=== PATIENT | female | born 1940 ===

== ENCOUNTER 2022-06-18 06:59 | Inpatient (IN) ==
[2022-06-18] MEDS ORDERED: BUMETANIDE 1 MG/4 ML VIAL IV ONE (07:16)
--- NOTE | 2022-06-18 07:21 | Emergency Department Note ---
HPI General Chief complaint: Shortness of Breath/Dyspnea Stated complaint: shortness of breath Time Seen by Provider: 06/18/22 07:06 Source: EMS Mode of arrival: EMS Limitations: language barrier History of Present Illness HPI Narrative: Narrative: This 82-year-old female [facility] with a complaint of shortness of breath. She states it has been occurring over several days, and is unassociated with any chest pain or palpitations productive cough, fever sweats or chills. The patient has both COPD and CHF as well as CKD4 and DM2, an ostomy placed secondary to multiple episodes of diverticulitis, and a bowel obstruction, that has led to chronic dehydration, and a chronic leg ulcer present x ~1 month. She states she's been getting treated by the wound clinic (though isn't taking any oral antibiotics), and has quit smoking a month ago. Pt is completely sedentary at the care facility. She states she still makes some urine, and denies any nausea or vomitting. Related Data Home Medications Medication Instructions Recorded Confirmed acetaminophen 325 mg tablet 325 mg PO ONCE PRN pain/fever 02/27/22 06/18/22 (Tylenol) albuterol sulfate 90 mcg/actuation 1 inh inhalation ONCE 02/27/22 06/18/22 aerosol inhaler apixaban 5 mg tablet (Eliquis) 2.5 mg PO BID 02/27/22 06/18/22 cholecalciferol (vitamin D3) 50 50 mcg PO QDAY 02/27/22 06/18/22 mcg (2,000 unit) capsule cholestyramine (with sugar) 4 gram 2 ea PO BID 02/27/22 06/18/22 oral powder cyanocobalamin (vitamin B-12) 1,000 mcg PO QMONTH 02/27/22 06/18/22 1,000 mcg capsule levothyroxine 100 mcg capsule 200 mcg PO QDAY 02/27/22 06/18/22 loperamide 2 mg tablet 2 mg PO Q6H PRN Diarrhea 02/27/22 06/18/22 bisacodyl 10 mg rectal suppository 10 mg WA ONCE 06/18/22 06/18/22 (Dulcolax (bisacodyl)) bisacodyl 5 mg tablet 10 mg PO DAILY 06/18/22 06/18/22 ferrous sulfate 325 mg (65 mg See Rx Instructions .Route .COMPLEX 06/18/22 06/18/22 iron) tablet fiber 2 tab PO DAILY 06/18/22 06/18/22 fluticasone fur. 100 mcg-umeclid 1 inh inhalation QDAY 06/18/22 06/18/22 62.5 mcg-vilant 25 mcg inhalat.powder furosemide 40 mg tablet 40 mg PO QAM PRN lower extremity 06/18/22 06/18/22 edema lidocaine 4 % topical patch 1 patch topical QDAY PRN Pain 06/18/22 06/18/22 nicotine 14 mg/24 hr daily 1 patch transdermal Q24H 06/18/22 06/18/22 transdermal patch sodium bicarbonate 650 mg tablet 650 mg PO QID 06/18/22 06/18/22 Previous Rx's Medication Instructions Recorded oxycodone 5 mg tablet 5 mg PO Q6H PRN Pain #10 tabs 06/24/22 piperacillin-tazobactam 2.25 2.25 g (56.25 mL) IV Q8H #600 mL 06/24/22 gram/50 mL in dextrose(iso) IV piggyback (Zosyn) Allergies Allergy/AdvReac Type Severity Reaction Status Date / Time fluconazole Allergy Severe anaphylaxia Verified 06/18/22 14:01 codeine Allergy Mild Diarrhea, Verified 06/18/22 14:01 Nausea, vomiting methocarbamol Allergy Mild pruritis Verified 06/18/22 14:01 ciprofloxacin Allergy Unknown Unknown Verified 06/18/22 14:01 egg Allergy Unknown Unknown Verified 05/30/22 14:40 levofloxacin Allergy Unknown Unknown Verified 06/18/22 14:01 shellfish derived Allergy Unknown Unknown Verified 06/18/22 14:01 montelukast AdvReac Intermediate headache/Chest Verified 06/18/22 14:01 pain clindamycin AdvReac Mild intolerance Verified 06/18/22 14:01 metoclopramide AdvReac Mild Diarrhea Verified 06/18/22 14:01 antiseptic solution Allergy Mild hives, Uncoded 06/18/22 14:01 Urticaria, rash salmon Allergy Unknown Unknown Uncoded 06/18/22 14:01 Review of Systems ROS ROS Narrative: Narrative: All systems ED: reviewed and negative except as stated. 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) Enterostomy complication (Chronic) Essential hypertension (Chronic) GERD without esophagitis (Chronic) Hyperlipidemia (Chronic) Hypokalemia (Chronic) Hypothyroidism (Chronic) Ileostomy status (Chronic) Malignant neoplasm of breast (Chronic) Malignant carcinoid tumor of rectum (Chronic) Nicotine dependence (Chronic) Obesity (Chronic) Localized skin mass, lump, or swelling (Chronic) Skin cancer of face (Chronic) Sleep apnea (Chronic) Injury of knee (Chronic) Swelling (Chronic) Allergy or toxic reaction to venom (Chronic) DM type 2 (diabetes mellitus, type 2) (Chronic) Asthma (Chronic) UTI (urinary tract infection) (Chronic) Vitamin B12 deficiency (Chronic) Dyspnea (Chronic) Chronic kidney disease, stage 4 (severe) (Chronic) Acute hyperkalemia (Acute) Pulmonary edema (Acute) Acute UTI (Acute) Sepsis (Acute) Acute renal failure superimposed on stage 4 chronic kidney disease (Acute) Sepsis (Acute) Chronic kidney disease (Acute) ELLA (acute kidney injury) (Acute) Wound infection (Acute) Metabolic acidosis (Acute) Metabolic acidosis with respiratory alkalosis (Acute) [id number] kidney injury (Acute) DVT (deep venous thrombosis) (Acute) Hyponatremia (Acute) Hyperkalemia (Acute) Hypomagnesemia (Acute) Dermatitis associated with moisture (Acute) Acidosis, metabolic, with respiratory acidosis (Acute) Medical History (Updated 06/26/22 @ 10:23 by Robert Bolivar MD) Allergy or toxic reaction to venom ot venom of spider Anxiety Arthralgia of hand Asthma Cellulitis Chest pain Chronic kidney disease, stage 4 (severe) CKD (chronic kidney disease) COPD (chronic obstructive pulmonary disease) Dermatitis associated with moisture DM type 2 (diabetes mellitus, type 2) Dyspnea Edema Embolism of artery of lower extremity Deep Veins Enterostomy complication Essential hypertension GERD without esophagitis Hyperlipidemia Hypokalemia Hypothyroidism Injury of knee Localized skin mass, lump, or swelling Malignant carcinoid tumor of rectum Malignant neoplasm of breast Nicotine dependence Obesity Other low back pain W/right hip complaints Pain in right hip Skin cancer of face Sleep apnea Swelling head and neck lump left side UTI (urinary tract infection) Vitamin B12 deficiency Surgical History History of cholecystectomy History of colon resection (11/10/19) with diverting ostomy from complicated diverticulitis History of creation of ostomy (~01/2022) for hernia and bowel obstruction History of evacuation of hematoma (02/12/22) RLE History of hysterectomy History of knee joint replacement Left History of lumpectomy of left breast (~2010) Ileostomy status Family History Mother Heart failure Cerebral hemorrhage Father Heart failure Diabetes Social History Smoking Status: Former smoker Alcohol Intake Frequency: does not drink Substance Use: does not use Exam Narrative Narrative: Narrative: General: Alert and oriented x3 in no acute distress. No dyspneic behavior (tenting, struggling to breath). Morbidly obese. Skin: Diffuse swelling (+4/4), in lower extremities bilaterally with a large ulcer to the muscule layer with thick green exudate) on the right. Pulmonary: Rales in both lower lobes. No wheezes or rhonchi. Good air exchange. CV: Regular rate and rhythm without murmurs clicks rubs or gallops. General Limitations: language barrier Course Vital Signs Vital signs: Vital Signs Temperature 98.7 F 06/18/22 06:59 Pulse Rate 98 H 06/18/22 06:59 Blood Pressure 125/52 06/18/22 06:59 Pulse Oximetry (%) 98 06/18/22 06:59 Oxygen Delivery Method Room Air 06/18/22 06:59 Temperature 98.1 F 06/24/22 15:06 Pulse Rate 80 06/24/22 15:06 Respiratory Rate 18 06/24/22 15:06 Blood Pressure 137/51 06/24/22 15:06 Pulse Oximetry (%) 97 06/24/22 15:06 Oxygen Delivery Method Room Air 06/24/22 15:06 MDM MDM Narrative Medical decision making narrative: Narrative: Patient's EKG shows a normal sinus rhythm with suggestion of minimal ST elevat ion in the lateral leads of 1 and aVL. QTc 456. I-STAT troponin=0. Patient was initially treated with Bumex 0.5 mg IV; chest x-ray as read by the radiologist shows: 1. Pulmonary parenchymal densities are consistent with atelectasis or scarring 2. No evidence for pneumonia. No acute abnormality or significant change. WBC 29.2, pos left shift Na 126, K 5.7, Bun/Cre 42/3.8, d-dimer .94 (wi age related normals), BNP 951, Troponin <.02. Pt's SaO2 on 2 l = 100%, with no fever or tachypnea suggest that her complaint of shortness of breath may be a pulmonary compensation for a metabolic acidosis. CT scan was obtained of the lungs and abdomen and showedScattered small noncalcified pulmonary parenchymal nodules. These are unchanged since 03/28/2022 2. Small focal groundglass infiltrate in the right upper lobe. This is unchanged. Follow-up recommended as above 3. Mild left lower lobe bronchiectasis. Mild bibasilar reticular abnormality. There is no honeycombing 4. Atherosclerotic disease with coronary artery calcification. There is calcification of the abdominal aorta. No abdominal aortic aneurysm 5. Previous colectomy. 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 There is a right para midline ostomy 6. No intra-abdominal abscess. Etiology of patient's leukocytosis is not explained 7. Findings consistent with previous cholecystectomy and hysterectomy Patient's ostomy device has in the past created dehydration and acidotic conditions. Patient's chronic kidney disease seems to be worse suggesting ELLA on top of CKD. Source of infection could be her urine (we have not been able to get any as a specimen, and her right leg ulcer. Patient was placed on azithromycin and ceftriaxone initially on 6 blood cultures were obtained patient was admitted after discussing the case with Dr. Bower Sepsis Sepsis Identified: No Lab Data 06/23/22 05:09 06/23/22 05:09 Labs: Lab Results 06/18/22 06/18/22 06/18/22 Range/Units 07:30 07:32 07:32 WBC 29.2 H (4.5-11.0) K/mcL RBC 3.77 (3.59-5.38) M/mcL Hgb 10.4 L (11.2-15.7) g/dL Hct 32.4 L (34.1-44.9) % POC Hct (36-48) MCV 85.9 (80.0-100.0) fL MCH 27.6 (26.0-34.0) pg MCHC 32.1 (31.0-36.0) g/dL RDW 14.8 H (11.5-14.5) % Plt Count 330 (140-440) K/mcL MPV 8.9 (8.8-12.5) fL Immature Gran % (Auto) 2.6 H (0.0-0.5) % Neut % (Auto) 89.5 H (38.0-78.0) % Lymph % (Auto) 4.1 L (15.5-49.0) % Barren % (Auto) 3.4 (1.0-12.0) % Eos % (Auto) 0.2 (0.0-7.0) % Baso % (Auto) 0.2 (0.0-2.0) % Lymph # (Auto) 1.21 L (1.50-4.80) K/mcL Barren # (Auto) 1.00 H (0.10-0.90) K/mcL Eos # (Auto) 0.07 (0.00-0.70) K/mcL Baso # (Auto) 0.06 (0.00-0.30) K/mcL Immature Gran # 0.76 H (0.00-0.05) K/mcl Absolute Neutrophils 26.07 H (1.80-8.00) K/mcL D-Dimer 0.94 H (0.27-0.50) ug/mL ABG Methemoglobin (0.4-1.5) % VBG pH (7.32-7.42) U VBG pCO2 (41.0-51.0) mmHg VBG pO2 (25.0-40.0) mmHg VBG HCO3 (24.0-28.0) mmol/L VBG Total CO2 (25.0-29.0) mmol/L VBG O2 Saturation (40.0-70.0) % VBG Base Excess (-2-3) VBG Lactic Acid (0.5-2.0) mmol/L Carboxyhemoglobin (0.0-1.5) % THgb Total Hemoglobin (12.0-15.0) gm/Dl POC Sodium (133-145) Sodium (133-145) mmol/L POC Potassium (3.3-5.1) Potassium (3.3-5.1) mmol/L POC Chloride (96-108) Chloride (96-108) mmol/L Carbon Dioxide (22-30) mmol/L POC Total CO2 (22-30) Anion Gap (8.0-16.0) POC BUN (6-20) BUN (8-23) mg/dL Creatinine (0.6-1.1) mg/dL POC Creatinine (0.6-1.2) GFR Calculation Glucose (70-105) mg/dL POC Glucose (70-105) Osmolality (280-300) mOSM/kg Calcium (8.6-10.4) mg/dL POC WB Ioniz Calcium (1.16-1.32) Total Bilirubin (0.1-1.0) mg/dL AST (<32) U/L ALT (<40) U/L Alkaline Phosphatase (39-117) U/L NT-Pro-B Natriuret Pep (<450.0) pg/mL Total Protein (5.9-8.4) gm/dL Albumin (3.2-5.2) gm/dL Globulin (2.2-3.7) gm/dL Albumin/Globulin Ratio (1.0-2.3) Procalcitonin (<0.10) ng/mL POC Troponin I < 0.02 (0.00-0.08) 06/18/22 06/18/22 06/18/22 Range/Units 07:32 07:32 07:32 WBC (4.5-11.0) K/mcL RBC (3.59-5.38) M/mcL Hgb (11.2-15.7) g/dL Hct (34.1-44.9) % POC Hct (36-48) MCV (80.0-100.0) fL MCH (26.0-34.0) pg MCHC (31.0-36.0) g/dL RDW (11.5-14.5) % Plt Count (140-440) K/mcL MPV (8.8-12.5) fL Immature Gran % (Auto) (0.0-0.5) % Neut % (Auto) (38.0-78.0) % Lymph % (Auto) (15.5-49.0) % Barren % (Auto) (1.0-12.0) % Eos % (Auto) (0.0-7.0) % Baso % (Auto) (0.0-2.0) % Lymph # (Auto) (1.50-4.80) K/mcL Barren # (Auto) (0.10-0.90) K/mcL Eos # (Auto) (0.00-0.70) K/mcL Baso # (Auto) (0.00-0.30) K/mcL Immature Gran # (0.00-0.05) K/mcl Absolute Neutrophils (1.80-8.00) K/mcL D-Dimer (0.27-0.50) ug/mL ABG Methemoglobin (0.4-1.5) % VBG pH (7.32-7.42) U VBG pCO2 (41.0-51.0) mmHg VBG pO2 (25.0-40.0) mmHg VBG HCO3 (24.0-28.0) mmol/L VBG Total CO2 (25.0-29.0) mmol/L VBG O2 Saturation (40.0-70.0) % VBG Base Excess (-2-3) VBG Lactic Acid 1.6 (0.5-2.0) mmol/L Carboxyhemoglobin (0.0-1.5) % THgb Total Hemoglobin (12.0-15.0) gm/Dl POC Sodium (133-145) Sodium 126 L (133-145) mmol/L POC Potassium (3.3-5.1) Potassium 5.7 H (3.3-5.1) mmol/L POC Chloride (96-108) Chloride 92 L (96-108) mmol/L Carbon Dioxide 17 L (22-30) mmol/L POC Total CO2 (22-30) Anion Gap 17.0 H (8.0-16.0) POC BUN (6-20) BUN 42 H (8-23) mg/dL Creatinine 3.8 H (0.6-1.1) mg/dL POC Creatinine (0.6-1.2) GFR Calculation 11 Glucose 95 (70-105) mg/dL POC Glucose (70-105) Osmolality 279 L (280-300) mOSM/kg Calcium 8.2 L (8.6-10.4) mg/dL POC WB Ioniz Calcium (1.16-1.32) Total Bilirubin 0.4 (0.1-1.0) mg/dL AST 10 (<32) U/L ALT 15 (<40) U/L Alkaline Phosphatase 154 H (39-117) U/L NT-Pro-B Natriuret Pep 950.9 H (<450.0) pg/mL Total Protein 6.3 (5.9-8.4) gm/dL Albumin 3.0 L (3.2-5.2) gm/dL Globulin 3.3 (2.2-3.7) gm/dL Albumin/Globulin Ratio 0.9 L (1.0-2.3) Procalcitonin 0.37 H (<0.10) ng/mL POC Troponin I (0.00-0.08) 06/18/22 06/18/22 Range/Units 13:36 13:50 WBC (4.5-11.0) K/mcL RBC (3.59-5.38) M/mcL Hgb (11.2-15.7) g/dL Hct (34.1-44.9) % POC Hct 27.0 L (36-48) MCV (80.0-100.0) fL MCH (26.0-34.0) pg MCHC (31.0-36.0) g/dL RDW (11.5-14.5) % Plt Count (140-440) K/mcL MPV (8.8-12.5) fL Immature Gran % (Auto) (0.0-0.5) % Neut % (Auto) (38.0-78.0) % Lymph % (Auto) (15.5-49.0) % Barren % (Auto) (1.0-12.0) % Eos % (Auto) (0.0-7.0) % Baso % (Auto) (0.0-2.0) % Lymph # (Auto) (1.50-4.80) K/mcL Barren # (Auto) (0.10-0.90) K/mcL Eos # (Auto) (0.00-0.70) K/mcL Baso # (Auto) (0.00-0.30) K/mcL Immature Gran # (0.00-0.05) K/mcl Absolute Neutrophils (1.80-8.00) K/mcL D-Dimer (0.27-0.50) ug/mL ABG Methemoglobin 0.3 L (0.4-1.5) % VBG pH 7.23 L (7.32-7.42) U VBG pCO2 47.1 (41.0-51.0) mmHg VBG pO2 33.5 (25.0-40.0) mmHg VBG HCO3 19.2 L (24.0-28.0) mmol/L VBG Total CO2 20.6 L (25.0-29.0) mmol/L VBG O2 Saturation 57.0 (40.0-70.0) % VBG Base Excess -8 L (-2-3) VBG Lactic Acid (0.5-2.0) mmol/L Carboxyhemoglobin 3.6 H (0.0-1.5) % THgb Total Hemoglobin 10.8 L (12.0-15.0) gm/Dl POC Sodium 126 L (133-145) Sodium (133-145) mmol/L POC Potassium 5.2 H (3.3-5.1) Potassium (3.3-5.1) mmol/L POC Chloride 95 L (96-108) Chloride (96-108) mmol/L Carbon Dioxide (22-30) mmol/L POC Total CO2 19.0 L (22-30) Anion Gap (8.0-16.0) POC BUN 44 H (6-20) BUN (8-23) mg/dL Creatinine (0.6-1.1) mg/dL POC Creatinine 4.7 H (0.6-1.2) GFR Calculation Glucose (70-105) mg/dL POC Glucose 69 L (70-105) Osmolality (280-300) mOSM/kg Calcium (8.6-10.4) mg/dL POC WB Ioniz Calcium 1.29 (1.16-1.32) Total Bilirubin (0.1-1.0) mg/dL AST (<32) U/L ALT (<40) U/L Alkaline Phosphatase (39-117) U/L NT-Pro-B Natriuret Pep (<450.0) pg/mL Total Protein (5.9-8.4) gm/dL Albumin (3.2-5.2) gm/dL Globulin (2.2-3.7) gm/dL Albumin/Globulin Ratio (1.0-2.3) Procalcitonin (<0.10) ng/mL POC Troponin I (0.00-0.08) Discharge Plan Patient/Caregiver Discharge Instructions Pt seen by RN TRANSITIONAL CARE/PA only: No Clinical Impression: Sepsis, Chronic kidney disease, ELLA (acute kidney injury), Wound infection, Metabolic acidosis Activity: increase activity as tolerated Patient Disposition: Still a Patient Condition: Undetermined Discharge Date/Time: 06/18/22 14:52
--- NOTE | 2022-06-18 07:36 | XRay Report ---
INDICATION: dyspnea TECHNIQUE: AP portable upright chest x-ray COMPARISON: Previous chest x-rays dated 05/30/2022, 05/14/2022, 05/07/2022 FINDINGS:Right-sided chemotherapy infusion port. Catheter tip is in the superior vena cava. This is unchanged. Lungs:Mild linear density at the left lung base is essentially stable and most consistent with atelectasis or scarring. Mild linear density left upper lobe is also unchanged. No acute parenchymal infiltrates. No evidence for pneumonia Heart, vascular:No significant cardiomegaly. Pulmonary vascularity is normal. No pulmonary edema or pulmonary congestion Mediastinum, susu:No mediastinal widening. No hilar mass Pleura:No pleural fluid. No pleural-based mass or calcification Musculoskeletal:Surgical clips in the left axilla. No detectable rib fracture. IMPRESSION: 1. Pulmonary parenchymal densities are consistent with atelectasis or scarring 2. No evidence for pneumonia. No acute abnormality or significant change Interpreted and Authenticated by: Darrell Pearson 06/18/22
[2022-06-18 08:09] LABS: Basophils # (Auto) 0.06 K/mcL (0.00-0.30); Basophils % (Auto) 0.2 % (0.0-2.0); Eosinophils # (Auto) 0.07 K/mcL (0.00-0.70); Eosinophils % (Auto) 0.2 % (0.0-7.0); Hematocrit 32.4 % (34.1-44.9); Hemoglobin 10.4 g/dL (11.2-15.7); Lymphocytes # (Auto) 1.21 K/mcL (1.50-4.80); Lymphocytes % (Auto) 4.1 % (15.5-49.0); Mean Cell Volume 85.9 fL (80.0-100.0); Mean Corpuscular HGB Conc 32.1 g/dL (31.0-36.0); Mean Platelet Volume 8.9 fL (8.8-12.5); Monocytes % (Auto) 3.4 % (1.0-12.0); Neutrophils % (Auto) 89.5 % (38.0-78.0); Platelet Count 330 K/mcL (140-440); RBC 3.77 M/mcL (3.59-5.38); Red Cell Distribution Width 14.8 % (11.5-14.5); WBC 29.2 K/mcL (4.5-11.0)
[2022-06-18 08:47] LABS: proBNP 950.9 pg/mL (<450.0)
[2022-06-18 08:50] LABS: ALT/SGPT 15 U/L (<40); AST/SGOT 10 U/L (<32); Albumin/Globulin Ratio 0.9 (1.0-2.3); Alkaline Phosphatase 154 U/L (39-117); Bilirubin,Total 0.4 mg/dL (0.1-1.0); Blood Urea Nitrogen 42 mg/dL (8-23); Calcium 8.2 mg/dL (8.6-10.4); Carbon Dioxide 17 mmol/L (22-30); Chloride 92 mmol/L (96-108); Globulin 3.3 gm/dL (2.2-3.7); Glomerular Filtration Rate 11; Glucose 95 mg/dL (70-105)
[2022-06-18] MEDS ORDERED: AZITHROMYCIN 500 MG in DEXTROSE 5% IN WATER 250 ML IV ONE (09:51)
[2022-06-18] MEDS ORDERED: cefTRIAXone 1 GM VIAL IV ONE (09:51)
[2022-06-18] MEDS ORDERED: CALCIUM GLUCONATE 13.95 MEQ in DEXTROSE 5% IN WATER 50 ML IV ONE (09:55)
[2022-06-18] MEDS ORDERED: INSULIN REGULAR, HUMAN 1 UNIT/0.01 ML UNIT IV ONE (09:55)
[2022-06-18] MEDS ORDERED: DEXTROSE 50% 50 ML SYRINGE IV ONE (09:55)
--- NOTE | 2022-06-18 11:19 | Nephrology Consult Note ---
HPI Date of Consult Consult Date: 06/18/22 Requesting physician: Main Campuzano Primary Care Provider: Adrien Carbajal Consult Narrative Chief complaint: Shortness of breath Reason for consult: Acute kidney injury History of present illness: Harriett Lindsey is an 82-year-old female with hypertension, chronic obstructive pulmonary disease, chronic kidney disease stage 4, chronic anemia, history of DVT/PE on Apixaban and history of ostomy s/p colon resection sent to ED on 06/18/22 for shortness of breath. Nephrology consultation was requested for acute kidney injury. cc:: CC: Constitutional Constitutional: Present fatigue and weakness EENT Nose, mouth and throat: Absent nasal congestion or sore throat Cardiovascular Cardiovascular: Absent chest pain or palpatations Respiratory Respiratory: Present dyspnea; Absent wheezing Gastrointestinal Gastrointestinal: Absent abdominal pain, nausea or vomiting Genitourinary Genitourinary: Absent dysuria or hematuria Musculoskeletal Musculoskeletal: Absent joint swelling Integumentary Integumentary: Present erythema (legs) Neurological Neurological: Absent confusion Psychiatric Psychiatric: Absent anxiety or panic attacks Allergic/Immunologic Allergic/Immunologic: Absent tongue swelling or uticaria PFSH PFSH All Active Problems (Updated 06/18/22 @ 11:16 by Robert Bolivar MD) Acute renal failure superimposed on stage 4 chronic kidney disease (Acute) Acute hyperkalemia (Acute) Pulmonary edema (Acute) Acute UTI (Acute) Sepsis (Acute) Chronic kidney disease, stage 4 (severe) (Chronic) Dyspnea (Chronic) Vitamin B12 deficiency (Chronic) UTI (urinary tract infection) (Chronic) Asthma (Chronic) DM type 2 (diabetes mellitus, type 2) (Chronic) Allergy or toxic reaction to venom (Chronic) Swelling (Chronic) Injury of knee (Chronic) Sleep apnea (Chronic) Skin cancer of face (Chronic) Localized skin mass, lump, or swelling (Chronic) Obesity (Chronic) Nicotine dependence (Chronic) Malignant carcinoid tumor of rectum (Chronic) Malignant neoplasm of breast (Chronic) Ileostomy status (Chronic) Hypothyroidism (Chronic) Hypokalemia (Chronic) Hyperlipidemia (Chronic) GERD without esophagitis (Chronic) Essential hypertension (Chronic) Enterostomy complication (Chronic) 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) Edema (Chronic) COPD (chronic obstructive pulmonary disease) (Chronic) CKD (chronic kidney disease) (Chronic) Chest pain (Chronic) Cellulitis (Chronic) Arthralgia of hand (Chronic) Anxiety (Chronic) Pain in right hip (Chronic) Other low back pain (Chronic) Medical History (Updated 06/18/22 @ 11:16 by Robert Bolivar MD) Allergy or toxic reaction to venom ot venom of spider Anxiety Arthralgia of hand Asthma Cellulitis Chest pain Chronic kidney disease, stage 4 (severe) CKD (chronic kidney disease) COPD (chronic obstructive pulmonary disease) DM type 2 (diabetes mellitus, type 2) Dyspnea Edema Embolism of artery of lower extremity Deep Veins Enterostomy complication Essential hypertension GERD without esophagitis Hyperlipidemia Hypokalemia Hypothyroidism Injury of knee Localized skin mass, lump, or swelling Malignant carcinoid tumor of rectum Malignant neoplasm of breast Nicotine dependence Obesity Other low back pain W/right hip complaints Pain in right hip Skin cancer of face Sleep apnea Swelling head and neck lump left side UTI (urinary tract infection) Vitamin B12 deficiency Surgical History (Updated 04/29/22 @ 10:21 by Francine Rock) History of cholecystectomy History of colon resection (11/10/19) with diverting ostomy from complicated diverticulitis History of creation of ostomy (~01/2022) for hernia and bowel obstruction History of evacuation of hematoma (02/12/22) RLE History of hysterectomy History of knee joint replacement Left History of lumpectomy of left breast (~2010) Ileostomy status Family History (Updated 04/29/22 @ 10:23 by Francine Rock) Mother Heart failure Cerebral hemorrhage Father Heart failure Diabetes Social History (Updated 02/07/22 @ 16:49 by Esme Blankenship) smoking status: Former smoker alcohol intake frequency: does not drink substance use type: does not use MEDS/ALLERGIES Home Medications and Allergies Home Medications Medication Instructions Recorded Confirmed Type acetaminophen 325 mg tablet 325 mg PO ONCE PRN 02/27/22 02/27/22 History (Tylenol) albuterol sulfate 90 mcg/actuation 1 inh inhalation ONCE 02/27/22 02/27/22 History aerosol inhaler amlodipine 10 mg tablet 10 mg PO QDAY 02/27/22 02/27/22 History apixaban 5 mg tablet (Eliquis) 5 mg PO BID 02/27/22 02/27/22 History ascorbic acid (vitamin C) 500 mg mg PO 02/27/22 02/27/22 History capsule baclofen 10 mg tablet 10 mg PO QDAY 02/27/22 02/27/22 History calcium carbonate 250 mg-vitamin 1 tab PO QDAY 02/27/22 02/27/22 History D3 3.125 mcg (125 unit) tablet (Oyster Shell + D3) cetirizine 5 mg tablet (Allergy 5 mg PO QDAY PRN 02/27/22 02/27/22 History Relief (cetirizine)) cholecalciferol (vitamin D3) 50 50 mcg PO QDAY 02/27/22 02/27/22 History mcg (2,000 unit) capsule cholestyramine (with sugar) 4 gram PO 02/27/22 02/27/22 History oral powder cyanocobalamin (vitamin B-12) 1,000 mcg PO QMONTH 02/27/22 02/27/22 History 1,000 mcg capsule dextromethorphan HBr 15 mg capsule 15 mg PO QDAY PRN 02/27/22 02/27/22 History docusate sodium 100 mg capsule 100 mg PO QDAY 02/27/22 02/27/22 History (DulcoEase) fenofibrate 54 mg tablet 54 mg PO QDAY 02/27/22 02/27/22 History fluticasone propionate 50 1 spray intranasal QDAY 02/27/22 02/27/22 History mcg/actuation nasal spray,suspension (Allergy Relief (fluticasone)) hydrocodone 5 mg-acetaminophen 325 1 tab PO Q6H PRN 02/27/22 02/27/22 History mg tablet ipratropium 20 mcg-albuterol 100 1 puff inhalation Q6H 02/27/22 02/27/22 History mcg/actuation mist for inhalation (Combivent Respimat) levothyroxine 100 mcg capsule 100 mcg PO QDAY 02/27/22 02/27/22 History levothyroxine 88 mcg capsule 88 mcg PO QDAY 02/27/22 02/27/22 History lisinopril 10 mg tablet 10 mg PO QDAY 02/27/22 02/27/22 History loperamide 2 mg tablet 2 mg PO Q6H PRN 02/27/22 02/27/22 History magnesium hydroxide 400 mg/5 mL 5 ml PO ONCE 02/27/22 02/27/22 History oral suspension (Milk of Magnesia) magnesium oxide-magnesium amino cap PO 02/27/22 02/27/22 History acid chelate 300 mg capsule nitroglycerin 0.4 mg sublingual 0.4 mg sublingual Q5M PRN 02/27/22 02/27/22 History tablet oxycodone 5 mg tablet 5 mg PO Q6H PRN 02/27/22 02/27/22 History pantoprazole 40 mg tablet,delayed 40 mg PO QDAY 02/27/22 02/27/22 History release polyethylene glycol 3350 17 4 g PO ONCE 02/27/22 02/27/22 History gram/dose oral powder (Miralax) simethicone 125 mg capsule (Gas-X 125 mg PO BID-QID PRN 02/27/22 02/27/22 History Extra Strength) tramadol 50 mg tablet 50 mg PO Q4H PRN 02/27/22 02/27/22 History warfarin 4 mg tablet 4 mg PO QMWF 02/27/22 02/27/22 History Allergies Allergy/AdvReac Type Severity Reaction Status Date / Time ciprofloxacin Allergy Intermediate Unknown Verified 05/30/22 14:40 levofloxacin Allergy Intermediate Unknown Verified 05/30/22 14:40 shellfish derived Allergy Intermediate Unknown Verified 05/30/22 14:40 clindamycin Allergy Unknown intolerance Verified 05/30/22 14:40 codeine Allergy Unknown Diarrhea, Verified 05/30/22 14:40 Nausea, vomiting egg Allergy Unknown Unknown Verified 05/30/22 14:40 fluconazole Allergy Unknown anaphylaxia Verified 05/30/22 14:40 methocarbamol Allergy Unknown pruritis Verified 05/30/22 14:40 metoclopramide Allergy Unknown Diarrhea Verified 05/30/22 14:40 montelukast Allergy Unknown headache/Chest Verified 05/30/22 14:40 pain salmon Allergy Intermediate Unknown Uncoded 02/27/22 13:37 antiseptic solution Allergy Unknown hives, Uncoded 02/27/22 13:37 Urticaria, rash Physical Examination Vital Signs Vital signs: Temp Pulse Resp BP Pulse Ox O2 Del Method 98.7 F 85 17 127/52 100 Room Air 06/18/22 06:59 06/18/22 09:41 06/18/22 10:21 06/18/22 10:21 06/18/22 09:41 06/18/22 06:59 General Appearance General appearance: obese, chronically ill and fatigue EENT EENT: mucous membranes moist Neck Neck: no JVD Respiratory Respiratory: clear Cardiovascular Cardiology: edema, regular rate and regular rhythm Gastrointestinal Gastrointestinal: no tenderness and obese Integumentary Integumentary: erythema (bilateral legs) Neurologic Neurologic: no focal deficit and alert and oriented x3 Musculoskeletal Musculoskeletal: no deformities Psychiatric Psychiatric: mood/affect appropriate and cooperative Results Lab Results 06/18/22 07:32 06/18/22 07:32 Lab results: Most recent lab results Calcium 8.2 mg/dL (8.6-10.4) L 06/18/22 07:32 A/P Assessment and plan (1) Acute renal failure superimposed on stage 4 chronic kidney disease: Assessment and plan: Harriett Lindsey is an 82-year-old female with hypertension, chronic obstructive pulmonary disease, chronic kidney disease stage 4, chronic anemia, history of DVT/PE on Apixaban and history of ostomy s/p colon resection sent to ED on 06/18/22 for shortness of breath. Nephrology consultation was requested for acute kidney injury. Acute kidney injury on chronic kidney disease stage 4 with initial hyperkalemia, metabolic acidosis and hyponatremia, present on arrival. There is no recent history of IV contrast administration or NSAID use. Intravascular volume depletion likely with ostomy output. Previous workup: Urinalysis on 05/30/22: Yellow, Cloudy, pH 5.0, SG 1.015, protein 30, blood negative, leukocyte esterase 500. CT Abdomen and Pelvis on 03/28/22: Kidneys appear unremarkable. IVC filter. Bilateral adrenal adenomas. Progress: Serum creatinine increased from 1.67 on 04/25/22 to 3.8 on 06/18/22. Baseline serum creatinine: 1.67 (eGFR 30) on 04/25/22. Urine output: 0 ml reported since arrival to ED. Metabolic acidosis. Hyponatremia. Hyperkalemia. Fluid overload with bilateral lower extremity edema. No uremic symptoms. Recommendations/Plan: No urgent acute hemodialysis need. Continue Sodium Bicarbonate 1300 mg twice daily. Avoid NSAIDs, nephrotoxic medications and IV contrast. Hold DAVID/ARB. Monitor BMP and urine output. Status: Acute (2) Acute hyperkalemia: Status: Acute Time Spent With Patient Time: Total time spent is greater than 50% in coordination of care (as documented) at patient's floor/unit and/or counseling patient:
--- NOTE | 2022-06-18 12:44 | XRay Report ---
INDICATION: wound TECHNIQUE: AP and lateral right tibia and fibula COMPARISON: None. FINDINGS: There is generalized soft tissue swelling. No soft tissue gas bubbles or detectable foreign body. There is coarse periosteal new bone formation along the lateral aspects of the distal right fibular diaphysis. There is no cortical destruction. There is no sequestrum and no localized destructive lesion. Periosteal thickening appears to be deep to a right lower extremity wound. This localized periosteal new bone formation is nonspecific. No definite plain film evidence for acute or chronic osteomyelitis. Incidental note is made of degenerative joint disease at the talonavicular joint and calcaneocuboid joint. IMPRESSION: 1. No acute abnormality. No evidence for acute or chronic osteomyelitis. No fracture 2. Thickened periosteum along the lateral aspects of the distal right fibular diaphysis 3. Generalized soft tissue swelling in the right lower extremity. No soft tissue gas bubbles or detectable foreign body Interpreted and Authenticated by: Darrell Pearson 06/18/22
--- NOTE | 2022-06-18 13:15 | Cat Scan Report ---
INDICATION: leukocytosis COMPARISON: Previous CT scan of the chest, abdomen, pelvis dated 03/28/2022 TECHNIQUE: Axial images were obtained through the chest,abdomen and pelvis. Sagittally and coronally reformatted images. FINDINGS: Chest CT: Lungs:Subtle groundglass infiltrate in the posterior segment of the right upper lobe. This is unchanged and 03/28/2022. This is a nonspecific appearance. 6-[address] follow-up recommended. There are scattered tiny noncalcified pulmonary parenchymal nodules. Appearance is unchanged. There is mild left lower lobe bronchiectasis. There is no honeycombing. There is mild reticular abnormality. Mediastinum:No mediastinal or hilar lymphadenopathy. Thoracic aorta is negative. No aneurysmal enlargement or dissection. Main pulmonary artery is within normal limits. Heart:No cardiomegaly. No pericardial effusion. There is coronary artery calcification, unchanged. Pleura:No pleural effusion. No pleural-based mass or calcification Axilla, supraclavicular regions, chest wall:No pathologic axillary or supraclavicular lymphadenopathy Musculoskeletal:No thoracic compression fracture. No lytic or sclerotic lesions. Sternum and ribs are negative Abdomen/Pelvis: Liver:Negative to the limits of noncontrast enhanced examination. No detectable mass. Liver contour is smooth Gallbladder, bilary:Gallbladder is not identified. No dilated intra or extrahepatic bile ducts. Spleen:No splenomegaly. Pancreas:No pancreatic mass. No pancreatic duct dilatation. No peripancreatic abnormality Adrenal glands:There is a right adrenal nodule which measures 4.0 x 3.1 cm. This is unchanged. This contains some macroscopic fat consistent with benign adenoma. This is unchanged. There is a 1.4 cm left adrenal nodule. This is also stable Kidneys,ureters,bladder:No solid renal mass. No hydronephrosis. No obstructing or nonobstructing calculi. No hydroureter. No ureteral calculus. No bladder stone. No detectable bladder mass. Gastrointestinal:Previous colectomy. There is a Alexander's pouch within the pelvis. There is a right para midline ostomy. There is no mechanical small bowel obstruction. Negative stomach and duodenum. No focal abnormality. Appendix: The appendix is removed Vascular:There is calcification of the abdominal aorta. No abdominal aortic aneurysm. There is an inferior vena caval filter in place Lymphatic:No retroperitoneal or pathologic mesenteric adenopathy Mesentery, peritoneum:No intra-peritoneal fluid. No intra-abdominal abscess. No pneumoperitoneum Reproductive:Uterus is not identified consistent with hysterectomy. There is no adnexal mass Musculoskeletal:Multilevel degenerative disc disease. No lumbar compression fracture. Sacrum and pelvis are negative. No anterior abdominal wall or inguinal hernia. IMPRESSION: 1. Scattered small noncalcified pulmonary parenchymal nodules. These are unchanged since 03/28/2022 2. Small focal groundglass infiltrate in the right upper lobe. This is unchanged. Follow-up recommended as above 3. Mild left lower lobe bronchiectasis. Mild bibasilar reticular abnormality. There is no honeycombing 4. Atherosclerotic disease with coronary artery calcification. There is calcification of the abdominal aorta. No abdominal aortic aneurysm 5. Previous colectomy. 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 There is a right para midline ostomy 6. No intra-abdominal abscess. Etiology of patient's leukocytosis is not explained 7. Findings consistent with previous cholecystectomy and hysterectomy The exam was performed using radiation dose optimization techniques including, but not limited to, automated exposure control, adjustment of the mA and/or kV according to patient size and use of iterative reconstruction technique. Interpreted and Authenticated by: Darrell Pearson 06/18/22
[2022-06-18 13:39] LABS: POC Calcium, Ionized 1.29 (1.16-1.32); POC Creatinine 4.7 (0.6-1.2); POC Potassium 5.2 (3.3-5.1)
[2022-06-18] MEDS ORDERED: 0.9 % SODIUM CHLORIDE 1,000 ML IV ONE (13:44)
[2022-06-18] MEDS ORDERED: LOPERAMIDE 2 MG CAPSULE PO PRN (13:59)
[2022-06-18] MEDS ORDERED: MAGNESIUM HYDROXIDE 30 ML ORAL.SUSP PO ONE (14:00)
[2022-06-18] MEDS ORDERED: ALBUTEROL SULFATE 60 PUFF INHALER INH PRN (14:00)
--- NOTE | 2022-06-18 14:14 | Internal Med History&Physical ---
HPI History of Present Illness Patient information: Note initiated : 06/18/22 at 2:05 pm Service Date, if different from initiated Date: [] Patient: Harriett Lindsey a 82 y/o F admitted on for shortness of breath. Chief Complaint: [shortness of breath] Chief complaint: shortness of breath History of present illness: Ms. Lindsey is a 82 year old F halfway resident, s/p colostomy, DVT on Eliquis, hypothyroidism, chronic kidney disease, presenting with 1 week history of progressively worsening shortness of breath. She is coming of progressively worsening shortness of breath. She is coming of respiratory wheezings. She denies chest pain. She denies cough. She denies fever but she is complaining of some chills. She is also complaining of bilateral leg swelling and right lower leg swelling and pain around her chronic right lower leg wound. She is supposed to have wound care clinic follow-up today but she has been sent to our ED for further evaluation of her shortness of breath instead. Vital signs at ED presentations within normal limits. Labs significant for leukocytosis with WBC 29.2. Lactic acid 1.4. COVID screening negative. Procalcitonin elevated at 0.37. Serum sodium and potassium level 126 and 5.7, respectively. Serum bicarb is 17 suggesting mild metabolic acidosis. Serum creatinine level elevated at 3.8 with baseline around 1.6. CT of the chest abdomen pelvis showing multiple pulmonary nodules and right upper lobe infiltrate but they were stable since previous studies. Constitutional Constitutional: Present chills; Absent excessive sweating, fatigue, fever(s) or weakness EENT Eyes: Absent blurry vision, change in vision, loss of vision or other visual disturbances Ears: Absent decreased hearing or tinnitus Nose, mouth and throat: Absent abnormal hearing, dry mouth, headache(s), nasal congestion or sore throat Cardiovascular Cardiovascular: Absent chest pain, chest pain at rest, edema, irregular heart rhythm or palpatations Respiratory Respiratory: Present dyspnea and wheezing; Absent cough Gastrointestinal Gastrointestinal: Absent abdominal pain, constipation, diarrhea, nausea or vomiting Musculoskeletal Musculoskeletal: Absent back pain, deformity, limited range of motion, muscle cramps, muscle weakness or numbness Additional comments: right lower leg pain Integumentary Integumentary: Present lesions and wounds; Absent rash Neurological Neurological: Absent focal weakness, headache(s) or numbness Psychiatric Psychiatric: Absent anxiety, depression or hallucinations PFSH PFSH All Active Problems (Updated 06/18/22 @ 14:18 by Maximus Bhakta MD) Hyperkalemia (Acute) Hyponatremia (Acute) DVT (deep venous thrombosis) (Acute) [id number] kidney injury (Acute) Metabolic acidosis with respiratory alkalosis (Acute) Sepsis (Acute) Chronic kidney disease (Acute) ELLA (acute kidney injury) (Acute) Wound infection (Acute) Metabolic acidosis (Acute) Acute renal failure superimposed on stage 4 chronic kidney disease (Acute) Acute hyperkalemia (Acute) Pulmonary edema (Acute) Acute UTI (Acute) Sepsis (Acute) Chronic kidney disease, stage 4 (severe) (Chronic) Dyspnea (Chronic) Vitamin B12 deficiency (Chronic) UTI (urinary tract infection) (Chronic) Asthma (Chronic) DM type 2 (diabetes mellitus, type 2) (Chronic) Allergy or toxic reaction to venom (Chronic) Swelling (Chronic) Injury of knee (Chronic) Sleep apnea (Chronic) Skin cancer of face (Chronic) Localized skin mass, lump, or swelling (Chronic) Obesity (Chronic) Nicotine dependence (Chronic) Malignant carcinoid tumor of rectum (Chronic) Malignant neoplasm of breast (Chronic) Ileostomy status (Chronic) Hypothyroidism (Chronic) Hypokalemia (Chronic) Hyperlipidemia (Chronic) GERD without esophagitis (Chronic) Essential hypertension (Chronic) Enterostomy complication (Chronic) 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) Edema (Chronic) COPD (chronic obstructive pulmonary disease) (Chronic) CKD (chronic kidney disease) (Chronic) Chest pain (Chronic) Cellulitis (Chronic) Arthralgia of hand (Chronic) Anxiety (Chronic) Pain in right hip (Chronic) Other low back pain (Chronic) Medical History (Updated 06/18/22 @ 14:18 by Maximus Bhakta MD) Allergy or toxic reaction to venom ot venom of spider Anxiety Arthralgia of hand Asthma Cellulitis Chest pain Chronic kidney disease, stage 4 (severe) CKD (chronic kidney disease) COPD (chronic obstructive pulmonary disease) DM type 2 (diabetes mellitus, type 2) Dyspnea Edema Embolism of artery of lower extremity Deep Veins Enterostomy complication Essential hypertension GERD without esophagitis Hyperlipidemia Hypokalemia Hypothyroidism Injury of knee Localized skin mass, lump, or swelling Malignant carcinoid tumor of rectum Malignant neoplasm of breast Nicotine dependence Obesity Other low back pain W/right hip complaints Pain in right hip Skin cancer of face Sleep apnea Swelling head and neck lump left side UTI (urinary tract infection) Vitamin B12 deficiency Surgical History (Updated 04/29/22 @ 10:21 by Francine Rock) History of cholecystectomy History of colon resection (11/10/19) with diverting ostomy from complicated diverticulitis History of creation of ostomy (~01/2022) for hernia and bowel obstruction History of evacuation of hematoma (02/12/22) RLE History of hysterectomy History of knee joint replacement Left History of lumpectomy of left breast (~2010) Ileostomy status Family History (Updated 04/29/22 @ 10:23 by Francine Rock) Mother Heart failure Cerebral hemorrhage Father Heart failure Diabetes Social History (Updated 02/07/22 @ 16:49 by Esme Blankenship) smoking status: Former smoker alcohol intake frequency: does not drink substance use type: does not use MEDS/ALLERGIES Home Medications and Allergies Home Medications Medication Instructions Recorded Confirmed Type acetaminophen 325 mg tablet 325 mg PO ONCE PRN pain/fever 02/27/22 06/18/22 History (Tylenol) albuterol sulfate 90 mcg/actuation 1 inh inhalation ONCE 02/27/22 06/18/22 History aerosol inhaler apixaban 5 mg tablet (Eliquis) 2.5 mg PO BID 02/27/22 06/18/22 History cholecalciferol (vitamin D3) 50 50 mcg PO QDAY 02/27/22 06/18/22 History mcg (2,000 unit) capsule cholestyramine (with sugar) 4 gram 2 ea PO BID 02/27/22 06/18/22 History oral powder cyanocobalamin (vitamin B-12) 1,000 mcg PO QMONTH 02/27/22 06/18/22 History 1,000 mcg capsule levothyroxine 100 mcg capsule 200 mcg PO QDAY 02/27/22 06/18/22 History loperamide 2 mg tablet 2 mg PO Q6H PRN Diarrhea 02/27/22 06/18/22 History magnesium hydroxide 400 mg/5 mL 5 ml PO ONCE 02/27/22 06/18/22 History oral suspension (Milk of Magnesia) oxycodone 5 mg tablet 5 mg PO Q6H PRN Pain 02/27/22 06/18/22 History bisacodyl 10 mg rectal suppository 10 mg NV ONCE 06/18/22 06/18/22 History (Dulcolax (bisacodyl)) bisacodyl 5 mg tablet 10 mg PO DAILY 06/18/22 06/18/22 History ferrous sulfate 325 mg (65 mg See Rx Instructions .Route .COMPLEX 06/18/22 06/18/22 History iron) tablet fiber 2 tab PO DAILY 06/18/22 06/18/22 History fluticasone fur. 100 mcg-umeclid 1 inh inhalation QDAY 06/18/22 06/18/22 History 62.5 mcg-vilant 25 mcg inhalat.powder furosemide 40 mg tablet 40 mg PO QAM PRN lower extremity 06/18/22 06/18/22 History edema lidocaine 4 % topical patch 1 patch topical QDAY PRN Pain 06/18/22 06/18/22 History nicotine 14 mg/24 hr daily 1 patch transdermal Q24H 06/18/22 06/18/22 History transdermal patch sodium bicarbonate 650 mg tablet 650 mg PO QID 06/18/22 06/18/22 History sodium phosphates 19 gram-7 118 ml NV ONCE PRN constipation 06/18/22 06/18/22 History gram/118 mL enema (Fleet Enema) Allergies Allergy/AdvReac Type Severity Reaction Status Date / Time fluconazole Allergy Severe anaphylaxia Verified 06/18/22 14:01 codeine Allergy Mild Diarrhea, Verified 06/18/22 14:01 Nausea, vomiting methocarbamol Allergy Mild pruritis Verified 06/18/22 14:01 ciprofloxacin Allergy Unknown Unknown Verified 06/18/22 14:01 egg Allergy Unknown Unknown Verified 05/30/22 14:40 levofloxacin Allergy Unknown Unknown Verified 06/18/22 14:01 shellfish derived Allergy Unknown Unknown Verified 06/18/22 14:01 montelukast AdvReac Intermediate headache/Chest Verified 06/18/22 14:01 pain clindamycin AdvReac Mild intolerance Verified 06/18/22 14:01 metoclopramide AdvReac Mild Diarrhea Verified 06/18/22 14:01 antiseptic solution Allergy Mild hives, Uncoded 06/18/22 14:01 Urticaria, rash salmon Allergy Unknown Unknown Uncoded 06/18/22 14:01 EXAM Constitutional Vitals: Temp Pulse Resp BP Pulse Ox O2 Del Method 37.1 C 78 14 117/50 100 Room Air 06/18/22 06:59 06/18/22 13:44 06/18/22 13:44 06/18/22 13:44 06/18/22 13:44 06/18/22 06:59 General appearance: cooperative and no acute distress Head Head exam: Present atraumatic and normocephalic Eye Eye exam: Present EOMI and PERRL ENT ENT exam: Present mucous membranes moist, normal exam and normal external ear exam Additional comments: Nasal cannula in place Neck Neck exam: Present normal inspection; Absent lymphadenopathy, tenderness or thyromegaly Respiratory Respiratory exam: Absent accessory muscle use, respiratory distress or wheezes Cardiovascular Cardiovascular exam: Present normal rate and rhythm; Absent JVD GI/Abdominal GI/Abdominal exam: Present normal bowel sounds and soft; Absent organomegaly or tenderness Additional comments: Ostomy in place Extremities Exam Extremities exam: Present full ROM, normal capillary refill and pedal edema; Absent normal inspection or tenderness Additional comments: Right lower leg skin lesion with surrounding erythema Neurological Exam Neurological exam: Present alert, CN II-XII intact and oriented X3; Absent motor sensory deficit Psychiatric Psychiatric exam: Present normal affect and normal mood; Absent anxious or depressed Skin Skin exam: Present dry; Absent intact Additional comments: Right lower leg wound with surrounding erythema DATA Data Completed and Pending Labs: Labs from last 24 hours 06/18/22 06/18/22 06/18/22 13:50 13:36 07:32 WBC RBC Hgb Hct POC Hct 27.0 L MCV MCH MCHC RDW Plt Count MPV Immature Gran % (Auto) Neut % (Auto) Lymph % (Auto) [place] % (Auto) Eos % (Auto) Baso % (Auto) Lymph # (Auto) [place] # (Auto) Eos # (Auto) Baso # (Auto) Immature Gran # Absolute Neutrophils D-Dimer ABG Methemoglobin Pending VBG pH Pending VBG pCO2 Pending VBG pO2 Pending VBG HCO3 Pending VBG Total CO2 Pending VBG O2 Saturation Pending VBG Base Excess Pending VBG Lactic Acid Carboxyhemoglobin Pending Total Hemoglobin Pending POC Sodium 126 L Sodium POC Potassium 5.2 H Potassium POC Chloride 95 L Chloride Carbon Dioxide POC Total CO2 19.0 L Anion Gap POC BUN 44 H BUN Creatinine POC Creatinine 4.7 H GFR Calculation Glucose POC Glucose 69 L Osmolality 279 L Calcium POC WB Ioniz Calcium 1.29 Total Bilirubin AST ALT Alkaline Phosphatase NT-Pro-B Natriuret Pep Total Protein Albumin Globulin Albumin/Globulin Ratio Procalcitonin POC Troponin I 06/18/22 06/18/22 06/18/22 07:32 07:32 07:32 WBC RBC Hgb Hct POC Hct MCV MCH MCHC RDW Plt Count MPV Immature Gran % (Auto) Neut % (Auto) Lymph % (Auto) [place] % (Auto) Eos % (Auto) Baso % (Auto) Lymph # (Auto) [place] # (Auto) Eos # (Auto) Baso # (Auto) Immature Gran # Absolute Neutrophils D-Dimer 0.94 H ABG Methemoglobin VBG pH VBG pCO2 VBG pO2 VBG HCO3 VBG Total CO2 VBG O2 Saturation VBG Base Excess VBG Lactic Acid 1.6 Carboxyhemoglobin Total Hemoglobin POC Sodium Sodium 126 L POC Potassium Potassium 5.7 H POC Chloride Chloride 92 L Carbon Dioxide 17 L POC Total CO2 Anion Gap 17.0 H POC BUN BUN 42 H Creatinine 3.8 H POC Creatinine GFR Calculation 11 Glucose 95 POC Glucose Osmolality Calcium 8.2 L POC WB Ioniz Calcium Total Bilirubin 0.4 AST 10 ALT 15 Alkaline Phosphatase 154 H NT-Pro-B Natriuret Pep 950.9 H Total Protein 6.3 Albumin 3.0 L Globulin 3.3 Albumin/Globulin Ratio 0.9 L Procalcitonin 0.37 H POC Troponin I 06/18/22 06/18/22 07:32 07:30 WBC 29.2 H RBC 3.77 Hgb 10.4 L Hct 32.4 L POC Hct MCV 85.9 MCH 27.6 MCHC 32.1 RDW 14.8 H Plt Count 330 MPV 8.9 Immature Gran % (Auto) 2.6 H Neut % (Auto) 89.5 H Lymph % (Auto) 4.1 L [place] % (Auto) 3.4 Eos % (Auto) 0.2 Baso % (Auto) 0.2 Lymph # (Auto) 1.21 L [place] # (Auto) 1.00 H Eos # (Auto) 0.07 Baso # (Auto) 0.06 Immature Gran # 0.76 H Absolute Neutrophils 26.07 H D-Dimer ABG Methemoglobin VBG pH VBG pCO2 VBG pO2 VBG HCO3 VBG Total CO2 VBG O2 Saturation VBG Base Excess VBG Lactic Acid Carboxyhemoglobin Total Hemoglobin POC Sodium Sodium POC Potassium Potassium POC Chloride Chloride Carbon Dioxide POC Total CO2 Anion Gap POC BUN BUN Creatinine POC Creatinine GFR Calculation Glucose POC Glucose Osmolality Calcium POC WB Ioniz Calcium Total Bilirubin AST ALT Alkaline Phosphatase NT-Pro-B Natriuret Pep Total Protein Albumin Globulin Albumin/Globulin Ratio Procalcitonin POC Troponin I < 0.02 A/P Assessment and plan (1) Metabolic acidosis with respiratory alkalosis: Status: Acute (2) [id number] kidney injury: Status: Acute (3) Hypothyroidism: Status: Chronic (4) Essential hypertension: Status: Chronic (5) DVT (deep venous thrombosis): Status: Acute (6) Hyponatremia: Status: Acute (7) Hyperkalemia: Status: Acute Narrative A/P Narrative: Assessment and Plans: 1. Shortness of breath: DDx: Metabolic acidosis with respiratory alkalosis, pneumonia, pulmonary edema with fluid overload Inpatient PCU with telemetry VBG Treat metabolic acidosis with sodium bicarb 1300mg PO BID Daily chemistry to trend Pulmonary nodules and infiltrates stable relative to previous studies pulmonary edema with fluid overload-->no IV fluid for now, comanagement with nephrology 2. Chronic right lower leg cellulitis: Consult Dr. Bowden, cristina. appreciated Serial lactic acid Procalcitonin level Wound culture Blood culture cbc w/ auto diff in the morning to trend MRSA screening Vancomycin Zosyn Physical therapy 3. Acute on chronic kidney injury: Consult nephrology, recs. appreciated Avoid nephrotoxic agents such as NSAIDs, IV contrast, DAVID-/ARB CMP in the morning to trend kidney functions 4. Hyponatremia: Consult nephrology, recs. appreciated 5. Hyperkalemia: Consult nephrology, recs. appreciated 6. Essential hypertension: Currently normotensive Continue home antihypertensives 7. Hypothyroidism: Continue oral thyroid replacement therapy 8. h/o DVT: Continue Eliquis GI ppx: not currently indicated DVT ppx: Eliquis Code status: Full Prognosis: guarded Disposition: inpatient PCU; PT Time Spent With Patient Time: Total time spent is greater than 50% in coordination of care (as documented) at patient's floor/unit and/or counseling patient: Initial: Total time with patient: 55 - 74 minutes
[2022-06-18 14:20] LABS: ABG Methemoglobin 0.3 % (0.4-1.5); Total Hemoglobin 10.8 gm/Dl (12.0-15.0); VBG Base Excess -8 (-2-3); VBG HCO3 19.2 mmol/L (24.0-28.0); VBG PCO2 47.1 mmHg (41.0-51.0); VBG PH 7.23 U (7.32-7.42); VBG PO2 33.5 mmHg (25.0-40.0); VBG Total CO2 20.6 mmol/L (25.0-29.0)
[2022-06-18] MEDS ORDERED: LIDOCAINE 4% TOPICAL PRN (14:27)
[2022-06-18] MEDS ORDERED: FLEETS ADULT ENEMA PR PRN (14:27)
[2022-06-18] MEDS ORDERED: NICOTINE 14 MG PATCH TOPICAL SCH (14:45)
[2022-06-18] MEDS ORDERED: LACTULOSE 20 GM/30 ML ORAL.SOL PO PRN (14:52)
[2022-06-18] MEDS ORDERED: PIPERACILLIN SODIUM/TAZOBACTAM 3.375 GM in DEXTROSE 5% IN WATER 50 ML IV SCH (14:52)
[2022-06-18] MEDS ORDERED: ONDANSETRON 4 MG/2 ML VIAL IV PRN (14:52)
[2022-06-18] MEDS ORDERED: VANCOMYCIN PER PHARMACY IV ONE (14:52)
[2022-06-18] MEDS ORDERED: SENNOSIDES 1 TABLET PO PRN (14:52)
[2022-06-18] MEDS ORDERED: IPRATROPIUM/ALBUTEROL 3 ML AMPUL.NEB NEB PRN (14:52)
[2022-06-18] MEDS ORDERED: VANCOMYCIN PER PHARMACY IV SCH (15:00)
[2022-06-18] MEDS: PIPERACILLIN SODIUM/TAZOBACTAM 2.25 GM in DEXTROSE 5% IN WATER 50 ML IV SCH ×2 (15:20→21:12)
[2022-06-18] MEDS: 0.9 % SODIUM CHLORIDE 10 ML SYRINGE IV SCH ×2 (15:29→21:12)
[2022-06-18] MEDS: 0.9 % SODIUM CHLORIDE 1,000 ML IV SCH (15:31)
[2022-06-18] MEDS: ACETAMINOPHEN 325 MG TABLET PO PRN (15:58)
[2022-06-18] MEDS ORDERED: SODIUM BICARBONATE 650 MG TABLET PO SCH ×3 (17:00→21:00)
[2022-06-18] MEDS ORDERED: VANCOMYCIN 1,500 MG in 0.9 % SODIUM CHLORIDE 500 ML IV ONE (17:00)
--- NOTE | 2022-06-18 18:17 | General Surgery Consult Note ---
HPI Date of Consult Consult Date: 06/18/22 Requesting physician: Maximus Bhakta Primary Care Provider: Adrien Carbajal Consult Narrative History of present illness: Reviewed HPI and Hospitalist Physician's note. Skin and wound management discussed with Anne DOVER at patient's beside. Spoke with Dr. BHAKTA. Following patient during her hospitalization. cc:: 82/F: Admitted to ICU via ER for management of Acute medical problems SEPSIS, electrolyte imbalance, due to ELLA on CKI. Wound care evaluation was requested for management of chronic lymphedema. dermatitis of both legs and VLU. Patient has h/o MRSA colonization. Reviewed comorbidities and note from Dr. Bolivar, [employer]. CC: Maximus Bhakta MD Musculoskeletal Musculoskeletal: Present other (Chronic pitting lymphedema of both LE legs.) Integumentary Integumentary: Present swelling (Lymphedema of both LE legs. ) and wounds (VLU lower lateral legs bilaterally Stage 2) PFSH PFSH All Active Problems Hyperkalemia (Acute) Hyponatremia (Acute) DVT (deep venous thrombosis) (Acute) Vpkdy-if-eybdpop kidney injury (Acute) Metabolic acidosis with respiratory alkalosis (Acute) Sepsis (Acute) Chronic kidney disease (Acute) ELLA (acute kidney injury) (Acute) Wound infection (Acute) Metabolic acidosis (Acute) Acute renal failure superimposed on stage 4 chronic kidney disease (Acute) Acute hyperkalemia (Acute) Pulmonary edema (Acute) Acute UTI (Acute) Sepsis (Acute) Chronic kidney disease, stage 4 (severe) (Chronic) Dyspnea (Chronic) Vitamin B12 deficiency (Chronic) UTI (urinary tract infection) (Chronic) Asthma (Chronic) DM type 2 (diabetes mellitus, type 2) (Chronic) Allergy or toxic reaction to venom (Chronic) Swelling (Chronic) Injury of knee (Chronic) Sleep apnea (Chronic) Skin cancer of face (Chronic) Localized skin mass, lump, or swelling (Chronic) Obesity (Chronic) Nicotine dependence (Chronic) Malignant carcinoid tumor of rectum (Chronic) Malignant neoplasm of breast (Chronic) Ileostomy status (Chronic) Hypothyroidism (Chronic) Hypokalemia (Chronic) Hyperlipidemia (Chronic) GERD without esophagitis (Chronic) Essential hypertension (Chronic) Enterostomy complication (Chronic) 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) Edema (Chronic) COPD (chronic obstructive pulmonary disease) (Chronic) CKD (chronic kidney disease) (Chronic) Chest pain (Chronic) Cellulitis (Chronic) Arthralgia of hand (Chronic) Anxiety (Chronic) Pain in right hip (Chronic) Other low back pain (Chronic) Medical History Allergy or toxic reaction to venom ot venom of spider Anxiety Arthralgia of hand Asthma Cellulitis Chest pain Chronic kidney disease, stage 4 (severe) CKD (chronic kidney disease) COPD (chronic obstructive pulmonary disease) DM type 2 (diabetes mellitus, type 2) Dyspnea Edema Embolism of artery of lower extremity Deep Veins Enterostomy complication Essential hypertension GERD without esophagitis Hyperlipidemia Hypokalemia Hypothyroidism Injury of knee Localized skin mass, lump, or swelling Malignant carcinoid tumor of rectum Malignant neoplasm of breast Nicotine dependence Obesity Other low back pain W/right hip complaints Pain in right hip Skin cancer of face Sleep apnea Swelling head and neck lump left side UTI (urinary tract infection) Vitamin B12 deficiency Surgical History History of cholecystectomy History of colon resection (11/10/19) with diverting ostomy from complicated diverticulitis History of creation of ostomy (~01/2022) for hernia and bowel obstruction History of evacuation of hematoma (02/12/22) RLE History of hysterectomy History of knee joint replacement Left History of lumpectomy of left breast (~2010) Ileostomy status Family History Mother Heart failure Cerebral hemorrhage Father Heart failure Diabetes Social History smoking status: Former smoker alcohol intake frequency: does not drink substance use type: does not use MEDS/ALLERGIES Home Medications and Allergies Home Medications Medication Instructions Recorded Confirmed Type acetaminophen 325 mg tablet 325 mg PO ONCE PRN pain/fever 02/27/22 06/18/22 History (Tylenol) albuterol sulfate 90 mcg/actuation 1 inh inhalation ONCE 02/27/22 06/18/22 History aerosol inhaler apixaban 5 mg tablet (Eliquis) 2.5 mg PO BID 02/27/22 06/18/22 History cholecalciferol (vitamin D3) 50 50 mcg PO QDAY 12/07/22 03/28/23 History mcg (2,000 unit) capsule cholestyramine (with sugar) 4 gram 2 ea PO BID 02/27/22 06/18/22 History oral powder cyanocobalamin (vitamin B-12) 1,000 mcg PO QMONTH 02/27/22 06/18/22 History 1,000 mcg capsule levothyroxine 100 mcg capsule 200 mcg PO QDAY 02/27/22 06/18/22 History loperamide 2 mg tablet 2 mg PO Q6H PRN Diarrhea 02/27/22 06/18/22 History magnesium hydroxide 400 mg/5 mL 5 ml PO ONCE 02/27/22 06/18/22 History oral suspension (Milk of Magnesia) oxycodone 5 mg tablet 5 mg PO Q6H PRN Pain 02/27/22 06/18/22 History bisacodyl 10 mg rectal suppository 10 mg AR ONCE 06/18/22 06/18/22 History (Dulcolax (bisacodyl)) bisacodyl 5 mg tablet 10 mg PO DAILY 06/18/22 06/18/22 History ferrous sulfate 325 mg (65 mg See Rx Instructions .Route .COMPLEX 06/18/22 06/18/22 History iron) tablet fiber 2 tab PO DAILY 06/18/22 06/18/22 History fluticasone fur. 100 mcg-umeclid 1 inh inhalation QDAY 06/18/22 06/18/22 History 62.5 mcg-vilant 25 mcg inhalat.powder furosemide 40 mg tablet 40 mg PO QAM PRN lower extremity 06/18/22 06/18/22 History edema lidocaine 4 % topical patch 1 patch topical QDAY PRN Pain 06/18/22 06/18/22 History nicotine 14 mg/24 hr daily 1 patch transdermal Q24H 06/18/22 06/18/22 History transdermal patch sodium bicarbonate 650 mg tablet 650 mg PO QID 06/18/22 06/18/22 History sodium phosphates 19 gram-7 118 ml AR ONCE PRN constipation 06/18/22 06/18/22 History gram/118 mL enema (Fleet Enema) Allergies Allergy/AdvReac Type Severity Reaction Status Date / Time fluconazole Allergy Severe anaphylaxia Verified 06/18/22 14:01 codeine Allergy Mild Diarrhea, Verified 06/18/22 14:01 Nausea, vomiting methocarbamol Allergy Mild pruritis Verified 06/18/22 14:01 ciprofloxacin Allergy Unknown Unknown Verified 06/18/22 14:01 egg Allergy Unknown Unknown Verified 05/30/22 14:40 levofloxacin Allergy Unknown Unknown Verified 06/18/22 14:01 shellfish derived Allergy Unknown Unknown Verified 06/18/22 14:01 montelukast AdvReac Intermediate headache/Chest Verified 06/18/22 14:01 pain clindamycin AdvReac Mild intolerance Verified 06/18/22 14:01 metoclopramide AdvReac Mild Diarrhea Verified 06/18/22 14:01 antiseptic solution Allergy Mild hives, Uncoded 06/18/22 14:01 Urticaria, rash salmon Allergy Unknown Unknown Uncoded 06/18/22 14:01 Physical Examination Vital Signs Vital signs: Temp Pulse Resp BP Pulse Ox O2 Del Method 98.6 F 77 14 106/42 99 Room Air 06/18/22 15:06 06/18/22 16:00 06/18/22 16:00 06/18/22 16:00 06/18/22 16:00 06/18/22 16:00 General physical appearance General physical exam: well developed, no distress and obese Eyes Eye exam: PERRL ENT ENT exam: normal pinna, normal mucosa and no congestion Head Head exam IM: Present atraumatic and normocephalic Neck Neck exam: no masses and no venous distension Cardiovascular Cardiovascular exam IM: Present normal rate and rhythm Respiratory Respiratory exam: normal respiratory effort Abdomen Abdomen: Present soft, non tender and bowel sounds Integumentary Integumentary: Present other (Chronic dry scales / Dermatitis of both legs. 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 Cooperative and Conversational AAO x 3. Moves all extremities. ) Results Labs 06/18/22 07:32 06/18/22 07:32 Labs: Abnormal lab results 06/18/22 06/18/22 06/18/22 Range/Units 07:32 07:32 07:32 WBC 29.2 H (4.5-11.0) K/mcL Hgb 10.4 L (11.2-15.7) g/dL Hct 32.4 L (34.1-44.9) % POC Hct (36-48) RDW 14.8 H (11.5-14.5) % Immature Gran % (Auto) 2.6 H (0.0-0.5) % Neut % (Auto) 89.5 H (38.0-78.0) % Lymph % (Auto) 4.1 L (15.5-49.0) % Lymph # (Auto) 1.21 L (1.50-4.80) K/mcL [place] # (Auto) 1.00 H (0.10-0.90) K/mcL Immature Gran # 0.76 H (0.00-0.05) K/mcl Absolute Neutrophils 26.07 H (1.80-8.00) K/mcL D-Dimer 0.94 H (0.27-0.50) ug/mL ABG Methemoglobin (0.4-1.5) % VBG pH (7.32-7.42) U VBG HCO3 (24.0-28.0) mmol/L VBG Total CO2 (25.0-29.0) mmol/L VBG Base Excess (-2-3) Carboxyhemoglobin (0.0-1.5) % THgb Total Hemoglobin (12.0-15.0) gm/Dl POC Sodium (133-145) Sodium 126 L (133-145) mmol/L POC Potassium (3.3-5.1) Potassium 5.7 H (3.3-5.1) mmol/L POC Chloride (96-108) Chloride 92 L (96-108) mmol/L Carbon Dioxide 17 L (22-30) mmol/L POC Total CO2 (22-30) Anion Gap 17.0 H (8.0-16.0) POC BUN (6-20) BUN 42 H (8-23) mg/dL Creatinine 3.8 H (0.6-1.1) mg/dL POC Creatinine (0.6-1.2) POC Glucose (70-105) Osmolality (280-300) mOSM/kg Calcium 8.2 L (8.6-10.4) mg/dL Alkaline Phosphatase 154 H (39-117) U/L NT-Pro-B Natriuret Pep 950.9 H (<450.0) pg/mL Albumin 3.0 L (3.2-5.2) gm/dL Albumin/Globulin Ratio 0.9 L (1.0-2.3) Procalcitonin (<0.10) ng/mL 06/18/22 06/18/22 06/18/22 Range/Units 07:32 07:32 13:36 WBC (4.5-11.0) K/mcL Hgb (11.2-15.7) g/dL Hct (34.1-44.9) % POC Hct 27.0 L (36-48) RDW (11.5-14.5) % Immature Gran % (Auto) (0.0-0.5) % Neut % (Auto) (38.0-78.0) % Lymph % (Auto) (15.5-49.0) % Lymph # (Auto) (1.50-4.80) K/mcL [place] # (Auto) (0.10-0.90) K/mcL Immature Gran # (0.00-0.05) K/mcl Absolute Neutrophils (1.80-8.00) K/mcL D-Dimer (0.27-0.50) ug/mL ABG Methemoglobin (0.4-1.5) % VBG pH (7.32-7.42) U VBG HCO3 (24.0-28.0) mmol/L VBG Total CO2 (25.0-29.0) mmol/L VBG Base Excess (-2-3) Carboxyhemoglobin (0.0-1.5) % THgb Total Hemoglobin (12.0-15.0) gm/Dl POC Sodium 126 L (133-145) Sodium (133-145) mmol/L POC Potassium 5.2 H (3.3-5.1) Potassium (3.3-5.1) mmol/L POC Chloride 95 L (96-108) Chloride (96-108) mmol/L Carbon Dioxide (22-30) mmol/L POC Total CO2 19.0 L (22-30) Anion Gap (8.0-16.0) POC BUN 44 H (6-20) BUN (8-23) mg/dL Creatinine (0.6-1.1) mg/dL POC Creatinine 4.7 H (0.6-1.2) POC Glucose 69 L (70-105) Osmolality 279 L (280-300) mOSM/kg Calcium (8.6-10.4) mg/dL Alkaline Phosphatase (39-117) U/L NT-Pro-B Natriuret Pep (<450.0) pg/mL Albumin (3.2-5.2) gm/dL Albumin/Globulin Ratio (1.0-2.3) Procalcitonin 0.37 H (<0.10) ng/mL 06/18/22 Range/Units 13:50 WBC (4.5-11.0) K/mcL Hgb (11.2-15.7) g/dL Hct (34.1-44.9) % POC Hct (36-48) RDW (11.5-14.5) % Immature Gran % (Auto) (0.0-0.5) % Neut % (Auto) (38.0-78.0) % Lymph % (Auto) (15.5-49.0) % Lymph # (Auto) (1.50-4.80) K/mcL [place] # (Auto) (0.10-0.90) K/mcL Immature Gran # (0.00-0.05) K/mcl Absolute Neutrophils (1.80-8.00) K/mcL D-Dimer (0.27-0.50) ug/mL ABG Methemoglobin 0.3 L (0.4-1.5) % VBG pH 7.23 L (7.32-7.42) U VBG HCO3 19.2 L (24.0-28.0) mmol/L VBG Total CO2 20.6 L (25.0-29.0) mmol/L VBG Base Excess -8 L (-2-3) Carboxyhemoglobin 3.6 H (0.0-1.5) % THgb Total Hemoglobin 10.8 L (12.0-15.0) gm/Dl POC Sodium (133-145) Sodium (133-145) mmol/L POC Potassium (3.3-5.1) Potassium (3.3-5.1) mmol/L POC Chloride (96-108) Chloride (96-108) mmol/L Carbon Dioxide (22-30) mmol/L POC Total CO2 (22-30) Anion Gap (8.0-16.0) POC BUN (6-20) BUN (8-23) mg/dL Creatinine (0.6-1.1) mg/dL POC Creatinine (0.6-1.2) POC Glucose (70-105) Osmolality (280-300) mOSM/kg Calcium (8.6-10.4) mg/dL Alkaline Phosphatase (39-117) U/L NT-Pro-B Natriuret Pep (<450.0) pg/mL Albumin (3.2-5.2) gm/dL Albumin/Globulin Ratio (1.0-2.3) Procalcitonin (<0.10) ng/mL Diabetes panel 06/18/22 Range/Units 07:32 Sodium 126 L (133-145) mmol/L Potassium 5.7 H (3.3-5.1) mmol/L Chloride 92 L (96-108) mmol/L Carbon Dioxide 17 L (22-30) mmol/L BUN 42 H (8-23) mg/dL Creatinine 3.8 H (0.6-1.1) mg/dL Glucose 95 (70-105) mg/dL Calcium 8.2 L (8.6-10.4) mg/dL AST 10 (<32) U/L ALT 15 (<40) U/L Alkaline Phosphatase 154 H (39-117) U/L Total Protein 6.3 (5.9-8.4) gm/dL Albumin 3.0 L (3.2-5.2) gm/dL Calcium panel 06/18/22 Range/Units 07:32 Calcium 8.2 L (8.6-10.4) mg/dL Albumin 3.0 L (3.2-5.2) gm/dL Pituitary panel 06/18/22 Range/Units 07:32 Sodium 126 L (133-145) mmol/L Potassium 5.7 H (3.3-5.1) mmol/L Chloride 92 L (96-108) mmol/L Carbon Dioxide 17 L (22-30) mmol/L BUN 42 H (8-23) mg/dL Creatinine 3.8 H (0.6-1.1) mg/dL Glucose 95 (70-105) mg/dL Calcium 8.2 L (8.6-10.4) mg/dL Adrenal panel 06/18/22 Range/Units 07:32 Sodium 126 L (133-145) mmol/L Potassium 5.7 H (3.3-5.1) mmol/L Chloride 92 L (96-108) mmol/L Carbon Dioxide 17 L (22-30) mmol/L BUN 42 H (8-23) mg/dL Creatinine 3.8 H (0.6-1.1) mg/dL Glucose 95 (70-105) mg/dL Calcium 8.2 L (8.6-10.4) mg/dL Total Bilirubin 0.4 (0.1-1.0) mg/dL AST 10 (<32) U/L ALT 15 (<40) U/L Alkaline Phosphatase 154 H (39-117) U/L Total Protein 6.3 (5.9-8.4) gm/dL Albumin 3.0 L (3.2-5.2) gm/dL All other labs normal. A/P Narrative A/P Narrative: Assessment: Emergency admission with SEPSIS. Acute on Chronic ELLA / CKI Comorbidities: HTN COPD Anemia DVT / PE H/o Ostomy Chronic Skin wounds Dermatitis. Dry scales VLU both lower lateral legs. Lymphedema of both legs. Plan of Treatment: Plan of skin and wound care : Clean with chlorhexidine or Hibiclens. Bacitracin ointment to open wounds / legs Kerlix bandage from ankles to upper calf. Will see patient with district sales leader / Hotel Receptionist in AM Time Spent With Patient Time: Total time spent is greater than 50% in coordination of care (as documented) at patient's floor/unit and/or counseling patient: Initial: Total time with patient: 40 - 54 minutes
[2022-06-18 19:44] LABS: Blood Urea Nitrogen 44 mg/dL (8-23); Calcium 7.9 mg/dL (8.6-10.4); Carbon Dioxide 18 mmol/L (22-30); Chloride 93 mmol/L (96-108); Glomerular Filtration Rate 10; Glucose 111 mg/dL (70-105)
[2022-06-18] MEDS: oxyCODONE HCL 5 MG TABLET PO PRN (20:14)
[2022-06-18] MEDS: MUPIROCIN OINT 2% 22GM NARES SCH (20:14)
[2022-06-18] MEDS: APIXABAN 5 MG TABLET PO SCH (20:15)
[2022-06-18] MEDS: DOCUSATE SODIUM 100 MG CAPSULE PO SCH (20:15)
[2022-06-18] MEDS ORDERED: HEPARIN 5,000 UNIT/ML VIAL SQ SCH (21:00)
[2022-06-19 03:01] LABS: Blood Urea Nitrogen 45 mg/dL (8-23); Calcium 7.9 mg/dL (8.6-10.4); Carbon Dioxide 17 mmol/L (22-30); Chloride 95 mmol/L (96-108); Glomerular Filtration Rate 10; Glucose 81 mg/dL (70-105)
[2022-06-19] MEDS: PIPERACILLIN SODIUM/TAZOBACTAM 2.25 GM in DEXTROSE 5% IN WATER 50 ML IV SCH ×3 (05:31→21:41)
[2022-06-19] MEDS: 0.9 % SODIUM CHLORIDE 10 ML SYRINGE IV SCH ×3 (05:32→22:40)
[2022-06-19] MEDS: LEVOTHYROXINE 100 MCG TABLET PO SCH (05:32)
[2022-06-19 06:25] LABS: Basophils # (Auto) 0.06 K/mcL (0.00-0.30); Basophils % (Auto) 0.4 % (0.0-2.0); Eosinophils # (Auto) 0.25 K/mcL (0.00-0.70); Eosinophils % (Auto) 1.6 % (0.0-7.0); Hematocrit 27.6 % (34.1-44.9); Hemoglobin 8.3 g/dL (11.2-15.7); Lymphocytes # (Auto) 0.95 K/mcL (1.50-4.80); Mean Cell Volume 92.6 fL (80.0-100.0); Mean Corpuscular HGB Conc 30.1 g/dL (31.0-36.0); Mean Platelet Volume 8.9 fL (8.8-12.5); Monocytes % (Auto) 4.4 % (1.0-12.0); Neutrophils % (Auto) 84.8 % (38.0-78.0); Platelet Count 232 K/mcL (140-440); RBC 2.98 M/mcL (3.59-5.38); Red Cell Distribution Width 15.4 % (11.5-14.5); WBC 15.8 K/mcL (4.5-11.0)
[2022-06-19 06:35] LABS: Vancomycin,Random 17.4 ug/mL
[2022-06-19 06:41] LABS: ALT/SGPT 9 U/L (<40); AST/SGOT 8 U/L (<32); Albumin 1.9 gm/dL (3.2-5.2); Albumin/Globulin Ratio 0.7 (1.0-2.3); Alkaline Phosphatase 112 U/L (39-117); Bilirubin,Total 0.2 mg/dL (0.1-1.0); Blood Urea Nitrogen 45 mg/dL (8-23); Calcium 7.6 mg/dL (8.6-10.4); Carbon Dioxide 15 mmol/L (22-30); Chloride 97 mmol/L (96-108); Globulin 2.8 gm/dL (2.2-3.7); Glomerular Filtration Rate 10; Glucose 73 mg/dL (70-105); Phosphorous 5.1 mg/dL (2.5-4.5)
--- NOTE | 2022-06-19 07:32 | Nephrology Progress Note ---
SUBJECTIVE Subjective Patient information: Note initiated : 06/19/22 at 7:28 am Patient: Harriett Lindsey 82 y/o F admitted on 06/18/22 for shortness of breath. Chief Complaint: Weakness Pertinent ROS: Weakness Edema Constitutional Vitals: Vital Signs Temp Pulse Resp BP Pulse Ox O2 Del Method 97.3 F 71 21 116/79 97 Room Air 06/19/22 04:01 06/19/22 06:02 06/19/22 06:02 06/19/22 06:02 06/19/22 06:02 06/19/22 06:02 Period Temp Pulse Resp BP Sys/Wilhelm Pulse Ox O2 Del Method O2 Flow Rate Last 24 Hr 97.1 F-98.6 F 59-92 - 98-136/36-83 94-100 Room Air-Room Air Intake and Output 06/18/22 06/19/22 06/19/22 19:59 03:59 11:59 Intake Total 609 658 0464 Output Total 175 275 300 Balance 685 275 750 Weight 208 lb 204 lb 14.4 oz Intake & Output: Intake & Output 06/18/22 06/19/22 06/19/22 19:59 03:59 11:59 Intake Total 268 985 4969 Output Total 175 275 300 Balance 685 275 750 Weight 208 lb 204 lb 14.4 oz Intake: IV 437 659 5875 Sodium Chloride 0.9% 1,000 ml @ 1000 75 mls/hr IV CONT [facility] Rx#: [id number] Zithromax 500 mg In Dextrose 5% 250 in Water 250 ml @ 250 mls/hr IV ONCE ONE Rx#:[id number] Calcium Gluconate 13.95 Meq In 80 Dextrose 5% in Water 50 ml @ 200 mls/hr IV ONCE ONE Rx#: [id number] Zosyn 2.25 gm In Dextrose 5% in 50 50 50 Water 50 ml @ 100 mls/hr IV Q8H [facility] Rx#:[id number] Vancomycin 1,500 mg In Sodium 500 Chloride 0.9% 500 ml @ 333.3 mls/hr IV ONCE ONE Rx#: [id number] Oral 480 Output: Void Amount 300 Stool 175 275 Other: Meal Dinner Percent of Meal Consumed 25% Feeding Ability Independent Urine Appearance Clear Urine Color Yellow Stool Size Small Stool Color Yellow Stool Consistency Normal for Patient # Bowel Movements 1 General appearance: cooperative and no acute distress Head Head exam: Present normal inspection Eye Eye exam: Present normal appearance ENT ENT exam: Present mucous membranes moist Respiratory Respiratory exam: Absent respiratory distress Cardiovascular Cardiovascular exam: Present normal rate and rhythm GI/Abdominal GI/Abdominal exam: Present soft; Absent tenderness Extremities Exam Extremities exam: Present pedal edema Neurological Exam Neurological exam: Present alert and oriented X3 Psychiatric Psychiatric exam: Present normal affect and normal mood Skin Skin exam: Present erythema (bilateral legs) A/P Assessment and plan (1) Acute renal failure superimposed on stage 4 chronic kidney disease: Assessment and plan: Harriett Lindsey is an 82-year-old female with hypertension, chronic obstructive pulmonary disease, chronic kidney disease stage 4, chronic anemia, history of DVT/PE on Apixaban and history of ostomy s/p colon resection sent to ED on 06/18/22 for shortness of breath. Nephrology consultation was requested for acute kidney injury. Acute kidney injury on chronic kidney disease stage 4 with initial hyperkalemia, metabolic acidosis and hyponatremia, present on arrival. There is no recent history of IV contrast administration or NSAID use. Intravascular volume depletion likely with ostomy output. Previous workup: Urinalysis on 05/30/22: Yellow, Cloudy, pH 5.0, SG 1.015, protein 30, blood negative, leukocyte esterase 500. CT Abdomen and Pelvis on 03/28/22: Kidneys appear unremarkable. IVC filter. Bilateral adrenal adenomas. Progress: Serum creatinine increased from 3.9 to 4.0 in the past 5 hours. Baseline serum creatinine: 1.67 (eGFR 30) on 04/25/22. Urine output: 300 ml reported since arrival to ED. Metabolic acidosis, worse. Hyponatremia, not changed. Hyperkalemia, resolved. Fluid overload with bilateral lower extremity edema. I/O: 1.7L since admit. No uremic symptoms. Recommendations/Plan: No urgent acute hemodialysis need. Sodium Bicarbonate increased from 1300 mg twice daily to three times daily. Avoid NSAIDs, nephrotoxic medications and IV contrast. Hold DAVID/ARB. Monitor BMP and urine output. Status: Acute (2) Acute hyperkalemia: Status: Acute Narrative Plan of Treatment: Plan of skin and wound care : Clean with chlorhexidine or Hibiclens. Bacitracin ointment to open wounds / legs Kerlix bandage from ankles to upper calf. Will see patient with prepress supervisor / Stand In in AM Time Spent With Patient Time: Total time spent is greater than 50% in coordination of care (as documented) at patient's floor/unit and/or counseling patient:
[2022-06-19] MEDS ORDERED: MAGNESIUM SULFATE 4 GM/100 ML BAG IV ONE (08:06)
[2022-06-19] MEDS: CHOLESTYRAMINE/ASPARTAME 4 GM POWD.PACK PO SCH (08:13)
[2022-06-19] MEDS: MUPIROCIN OINT 2% 22GM NARES SCH ×2 (08:25→20:41)
[2022-06-19] MEDS: BISACODYL 5 MG TABLET PO SCH (08:26)
[2022-06-19] MEDS: CALCIUM POLYCARBOPHIL 1 TABLET PO SCH (08:26)
[2022-06-19] MEDS: NICOTINE 14 MG PATCH TD SCH (08:26)
[2022-06-19] MEDS: DOCUSATE SODIUM 100 MG CAPSULE PO SCH ×2 (08:26→20:35)
[2022-06-19] MEDS: APIXABAN 5 MG TABLET PO SCH ×2 (08:26→20:42)
[2022-06-19] MEDS: VITAMIN D3 25 MCG TABLET PO SCH (08:27)
[2022-06-19] MEDS: FLUTICASONE UMECLIDIN VILANTER INH SCH ×2 (08:27→08:32)
[2022-06-19] MEDS: SODIUM BICARBONATE 650 MG TABLET PO SCH ×3 (08:27→20:41)
[2022-06-19] MEDS ORDERED: CYANOCOBALAMIN 1000 MCG PO SCH (09:00)
[2022-06-19] MEDS ORDERED: BISACODYL 10 MG SUPP.RECT PR SCH (09:00)
[2022-06-19] MEDS ORDERED: [UNRECOGNIZED DRUG - OTHER] PO SCH (09:00)
--- NOTE | 2022-06-19 09:31 | Internal Med Progress Note ---
SUBJECTIVE Subjective Patient information: Note initiated : 06/19/22 at 9:23 am Service Date, if different from initiated Date: [] Patient: Harriett Lindsey a 82 y/o F admitted on 06/18/22 for shortness of breath. Chief Complaint: [] Interval history: Ms. Lindsey is a 82 year old F skilled nursing resident, s/p colostomy, DVT on Eliquis, hypothyroidism, chronic kidney disease, presenting with 1 week history of progressively worsening shortness of breath. She is coming of progressively worsening shortness of breath. She is coming of respiratory wheezings. She denies chest pain. She denies cough. She denies fever but she is complaining of some chills. She is also complaining of bilateral leg swelling and right lower leg swelling and pain around her chronic right lower leg wound. She is supposed to have wound care clinic follow-up today but she has been sent to our ED for further evaluation of her shortness of breath instead. Vital signs at ED presentations within normal limits. Labs significant for leukocytosis with WBC 29.2. Lactic acid 1.4. COVID screening negative. Procalcitonin elevated at 0.37. Serum sodium and potassium level 126 and 5.7, respectively. Serum bicarb is 17 suggesting mild metabolic acidosis. Serum creatinine level elevated at 3.8 with baseline around 1.6. CT of the chest abdomen pelvis showing multiple pulmonary nodules and right upper lobe infiltrate but they were stable since previous studies. 06/19: Serum sodium/potassium/magnesium 126/5.1/0.9, respectively. MRSA screening positive. All cultures no growth to date. She is on room air. Patient denies having any more shortness of breath this morning. Denies any cough or wheezing. He denies any fever chills or diaphoresis. She denies any right lower leg pain. Continue vancomycin and Zosyn for right lower leg cellulitis. Co-managing with career development specialist Dr. Bowden and infectious disease. Continue IV normal saline and BMP every 6 hours for hyponatremia. Magnesium rider. Sodium bicarbonate 1300 mg p.o. 3 times daily. Physical therapy evaluation and treatment. Keep the patient in inpatient PCU. Constitutional Vitals: Vital Signs Temp Pulse Resp BP Pulse Ox O2 Del Method 36.4 C 70 20 120/51 97 Room Air 06/19/22 08:01 06/19/22 08:01 06/19/22 08:01 06/19/22 08:01 06/19/22 08:01 06/19/22 08:01 Period Temp Pulse Resp BP Sys/Wilhelm Pulse Ox O2 Del Method O2 Flow Rate Last 24 Hr 36.2 C-37.0 C 59-85 - 98-130/36-83 94-100 Room Air-Room Air Intake and Output 06/18/22 06/19/22 06/19/22 19:59 03:59 11:59 Intake Total 395 829 4851 Output Total 175 275 425 Balance 685 275 625 Weight 94.347 kg 92.941 kg Intake & Output: Intake & Output 06/18/22 06/19/22 06/19/22 19:59 03:59 11:59 Intake Total 794 407 8563 Output Total 175 275 425 Balance 685 275 625 Weight 94.347 kg 92.941 kg Intake: IV 184 798 4711 Sodium Chloride 0.9% 1,000 ml @ 1000 75 mls/hr IV CONT [facility] Rx#: [id number] Zithromax 500 mg In Dextrose 5% 250 in Water 250 ml @ 250 mls/hr IV ONCE ONE Rx#:[id number] Calcium Gluconate 13.95 Meq In 80 Dextrose 5% in Water 50 ml @ 200 mls/hr IV ONCE ONE Rx#: [id number] Zosyn 2.25 gm In Dextrose 5% in 50 50 50 Water 50 ml @ 100 mls/hr IV Q8H [facility] Rx#:[id number] Vancomycin 1,500 mg In Sodium 500 Chloride 0.9% 500 ml @ 333.3 mls/hr IV ONCE ONE Rx#: [id number] Oral 480 Output: Void Amount 300 Stool 175 275 125 Other: Meal Dinner Breakfast Percent of Meal Consumed 25% 100% Feeding Ability Independent Assist with Tray Set Up Urine Appearance Clear Urine Color Yellow Stool Size Small Stool Color Yellow Stool Consistency Normal for Patient # Bowel Movements 1 Head Head exam: Present atraumatic and normal inspection Eye Eye exam: Present normal appearance ENT ENT exam: Present mucous membranes moist, normal exam and normal external ear exam Neck Neck exam: Present normal inspection Respiratory Respiratory exam: Present normal respiratory exam Cardiovascular Cardiovascular exam: Present normal rate and rhythm GI/Abdominal GI/Abdominal exam: Present normal bowel sounds Additional comments: Colostomy bag in place Extremities Exam Extremities exam: Present pedal edema; Absent normal inspection Additional comments: Right lower leg skin ulcer with surrounding erythema Back Exam Back exam: Present normal inspection Neurological Exam Neurological exam: Present alert and oriented X3 Skin Skin exam: Present warm; Absent intact Additional comments: Right lower leg skin ulcer with surrounding erythema OBJ DATA Labs 06/19/22 05:25 06/19/22 05:24 Labs: Abnormal Lab Results 06/19/22 06/19/22 06/19/22 05:25 05:24 00:31 WBC 15.8 H RBC 2.98 L Hgb 8.3 L Hct 27.6 L POC Hct MCHC 30.1 L RDW 15.4 H Immature Gran % (Auto) 2.8 H Neut % (Auto) 84.8 H Lymph % (Auto) 6.0 L Lymph # (Auto) 0.95 L Rincon # (Auto) Immature Gran # 0.45 H Absolute Neutrophils 13.40 H D-Dimer ABG Methemoglobin VBG pH VBG HCO3 VBG Total CO2 VBG Base Excess Carboxyhemoglobin Total Hemoglobin POC Sodium Sodium 126 L 126 L POC Potassium Potassium POC Chloride Chloride 95 L Carbon Dioxide 15 L 17 L POC Total CO2 Anion Gap POC BUN BUN 45 H 45 H Creatinine 4.0 H 3.9 H POC Creatinine Glucose POC Glucose Osmolality Calcium 7.6 L 7.9 L Phosphorus 5.1 H Magnesium 0.9 L* Alkaline Phosphatase NT-Pro-B Natriuret Pep Total Protein 4.7 L Albumin 1.9 L Albumin/Globulin Ratio 0.7 L Procalcitonin 06/18/22 06/18/22 06/18/22 18:28 13:50 13:36 WBC RBC Hgb Hct POC Hct 27.0 L MCHC RDW Immature Gran % (Auto) Neut % (Auto) Lymph % (Auto) Lymph # (Auto) Rincon # (Auto) Immature Gran # Absolute Neutrophils D-Dimer ABG Methemoglobin 0.3 L VBG pH 7.23 L VBG HCO3 19.2 L VBG Total CO2 20.6 L VBG Base Excess -8 L Carboxyhemoglobin 3.6 H Total Hemoglobin 10.8 L POC Sodium 126 L Sodium 125 L POC Potassium 5.2 H Potassium POC Chloride 95 L Chloride 93 L Carbon Dioxide 18 L POC Total CO2 19.0 L Anion Gap POC BUN 44 H BUN 44 H Creatinine 3.9 H POC Creatinine 4.7 H Glucose 111 H POC Glucose 69 L Osmolality Calcium 7.9 L Phosphorus Magnesium Alkaline Phosphatase NT-Pro-B Natriuret Pep Total Protein Albumin Albumin/Globulin Ratio Procalcitonin 06/18/22 06/18/22 06/18/22 07:32 07:32 07:32 WBC RBC Hgb Hct POC Hct MCHC RDW Immature Gran % (Auto) Neut % (Auto) Lymph % (Auto) Lymph # (Auto) [place]incon # (Auto) Immature Gran # Absolute Neutrophils D-Dimer ABG Methemoglobin VBG pH VBG HCO3 VBG Total CO2 VBG Base Excess Carboxyhemoglobin Total Hemoglobin POC Sodium Sodium 126 L POC Potassium Potassium 5.7 H POC Chloride Chloride 92 L Carbon Dioxide 17 L POC Total CO2 Anion Gap 17.0 H POC BUN BUN 42 H Creatinine 3.8 H POC Creatinine Glucose POC Glucose Osmolality 279 L Calcium 8.2 L Phosphorus Magnesium Alkaline Phosphatase 154 H NT-Pro-B Natriuret Pep 950.9 H Total Protein Albumin 3.0 L Albumin/Globulin Ratio 0.9 L Procalcitonin 0.37 H 06/18/22 06/18/22 07:32 07:32 WBC 29.2 H RBC Hgb 10.4 L Hct 32.4 L POC Hct MCHC RDW 14.8 H Immature Gran % (Auto) 2.6 H Neut % (Auto) 89.5 H Lymph % (Auto) 4.1 L Lymph # (Auto) 1.21 L [place] # (Auto) 1.00 H Immature Gran # 0.76 H Absolute Neutrophils 26.07 H D-Dimer 0.94 H ABG Methemoglobin VBG pH VBG HCO3 VBG Total CO2 VBG Base Excess Carboxyhemoglobin Total Hemoglobin POC Sodium Sodium POC Potassium Potassium POC Chloride Chloride Carbon Dioxide POC Total CO2 Anion Gap POC BUN BUN Creatinine POC Creatinine Glucose POC Glucose Osmolality Calcium Phosphorus Magnesium Alkaline Phosphatase NT-Pro-B Natriuret Pep Total Protein Albumin Albumin/Globulin Ratio Procalcitonin Meds: Medications Acetaminophen (Acetaminophen 325 Mg Tablet) 650 mg PO Q6HP PRN; Protocol PRN Reason: Per Pain Protocol/Fever > 101 Last Admin: 06/18/22 15:58 Dose: 650 mg Albuterol Sulfate (Albuterol Sulfate 60 Puff Inhaler) 1 puff INH Q4HP PRN PRN Reason: Shortness Of Breath Albuterol/Ipratropium (Ipratropium/Albuterol 3 Ml Ampul.Neb) 3 ml NEB Q4HRT PRN PRN Reason: Wheezing Apixaban (Apixaban 5 Mg Tablet) 2.5 mg PO BID [facility] Last Admin: 06/19/22 08:26 Dose: 2.5 mg Bisacodyl (Bisacodyl 5 Mg Tablet) 10 mg PO DAILY [facility] Last Admin: 06/19/22 08:26 Dose: 10 mg Calcium Polycarbophil (Calcium Polycarbophil 1 Tablet) 1 tab PO DAILY [facility] Last Admin: 06/19/22 08:26 Dose: 1 tab Cholestyramine Resin (Cholestyramine/Aspartame 4 Gm Powd.Pack) 4 gm PO DAILY@0700 [facility] Last Admin: 06/19/22 08:13 Dose: 4 gm Docusate Sodium (Docusate Sodium 100 Mg Capsule) 100 mg PO BID [facility] Last Admin: 06/19/22 08:26 Dose: 100 mg Ferrous Sulfate (Ferrous Sulfate 325 Mg Tablet) 325 mg PO Q48H [facility] Sodium Chloride (Sodium Chloride 0.9%) 1,000 mls @ 75 mls/hr IV CONT [facility] Last Infusion: 06/19/22 06:36 Dose: Infused Piperacillin Sod/Tazobactam (Sod 2.25 gm/ Dextrose) 50 mls @ 100 mls/hr IV Q8H [facility]; Protocol Last Infusion: 06/19/22 06:35 Dose: Infused Magnesium Sulfate (Magnesium Sulfate) 4 gm in 100 mls @ 25 mls/hr IV ONCE ONE Stop: 06/19/22 12:05 Last Admin: 06/19/22 08:25 Dose: 25 mls/hr Lactulose (Lactulose 20 Gm/30 Ml Oral.Lakshmi) 10 gm PO DAILYP PRN PRN Reason: Constipation Levothyroxine Sodium (Levothyroxine 100 Mcg Tablet) 200 mcg PO DAILY@0600 [facility] Last Admin: 06/19/22 05:32 Dose: 200 mcg Loperamide HCl (Loperamide 2 Mg Capsule) 2 mg PO Q6HP PRN PRN Reason: Diarrhea Mupirocin (Mupirocin Oint 2% 22gm) 1 dose NARES BID [facility] Last Admin: 06/19/22 08:25 Dose: 1 dose Nicotine (Nicotine 14 Mg Patch) 14 mg TD Q24H [facility] Last Admin: 06/19/22 08:26 Dose: 14 mg Ondansetron HCl (Ondansetron 4 Mg/2 Ml Vial) 4 mg IV Q4HP PRN; Protocol PRN Reason: Nausea And Vomiting Oxycodone HCl (Oxycodone Hcl 5 Mg Tablet) 5 mg PO Q6HP PRN; Protocol PRN Reason: Pain Last Admin: 06/18/22 20:14 Dose: 5 mg Fluticasone- Umeclidin-Vilanter 100-62.5-25 Mcg 1 dose INH QDAY [facility] Last Admin: 06/19/22 08:32 Dose: 1 dose Senna (Sennosides 1 Tablet) 2 tab PO HSP PRN PRN Reason: Constipation Sodium Bicarbonate (Sodium Bicarbonate 650 Mg Tablet) 1,300 mg PO TID [facility] Last Admin: 06/19/22 08:27 Dose: 1,300 mg Sodium Biphosphate/Sodium Phosphate (Fleets Adult Enema) 1 dose ID DAILYP PRN PRN Reason: constipation Sodium Chloride (0.9 % Sodium Chloride 10 Ml Syringe) 10 ml IV Q8 [facility] Last Admin: 06/19/22 05:32 Dose: 10 ml Vancomycin HCl (Vancomycin Per Pharmacy) 1 order IV UD [facility]; Protocol Vitamin D (Vitamin D3 25 Mcg Tablet) 50 mcg PO DAILY [facility] Last Admin: 06/19/22 08:27 Dose: 50 mcg ABG Interpretation ABG results: 06/18/22 13:50 ABG Methemoglobin 0.3 L VBG pH 7.23 L VBG pCO2 47.1 VBG pO2 33.5 VBG HCO3 19.2 L VBG Total CO2 20.6 L VBG O2 Saturation 57.0 VBG Base Excess -8 L A/P Assessment and plan (1) Metabolic acidosis with respiratory alkalosis: Status: Acute (2) Hwztl-ma-mnbrsrz kidney injury: Status: Acute (3) Hypothyroidism: Status: Chronic (4) Essential hypertension: Status: Chronic (5) DVT (deep venous thrombosis): Status: Acute (6) Hyponatremia: Status: Acute (7) Hyperkalemia: Status: Acute (8) Hypomagnesemia: Status: Acute Narrative A/P Narrative: Assessment and Plans: 1. Shortness of breath: DDx: Metabolic acidosis with respiratory alkalosis, pneumonia, pulmonary edema with fluid overload Inpatient PCU with telemetry VBG Treat metabolic acidosis with sodium bicarb 1300mg PO TID Daily chemistry to trend Pulmonary nodules and infiltrates stable relative to previous studies pulmonary edema with fluid overload-->no IV fluid for now, comanagement with nephrology 2. Chronic right lower leg cellulitis: Consult Dr. Bowden, rest. appreciated Consult tele-infectious disease Serial lactic acid Procalcitonin level Wound culture, no growth to date Blood culture, no growth to date cbc w/ auto diff in the morning to trend MRSA screening positive Vancomycin Zosyn Physical therapy evaluation and treatment 3. Acute on chronic kidney injury: Consult nephrology, recs. appreciated Avoid nephrotoxic agents such as NSAIDs, IV contrast, DAVID-/ARB CMP in the morning to trend kidney functions 4. Hyponatremia: Consult nephrology, recs. appreciated NS@75cc/hr BMP q6hr, goal of correction 8-10 point over the first 24 hour to avoid [employer] sequela such as [place] Myelinolysis 5. Hyperkalemia: Consult nephrology, recs. appreciated 6. Essential hypertension: Currently normotensive Continue home antihypertensives 7. Hypothyroidism: Continue oral thyroid replacement therapy 8. h/o DVT: Continue Eliquis 9. Hypomagnesemia: Magnesemia IV rider Daily serum Mg level to trend GI ppx: not currently indicated DVT ppx: Eliquis Code status: Full Prognosis: guarded Disposition: inpatient PCU; PT Plan of Treatment: Plan of skin and wound care : Clean with chlorhexidine or Hibiclens. Bacitracin ointment to open wounds / legs Kerlix bandage from ankles to upper calf. Will see patient with emotional support teacher / Custom Van Converter in AM Time Spent With Patient Time: Total time spent is greater than 50% in coordination of care (as documented) at patient's floor/unit and/or counseling patient: Subsequent: Total time with patient: 35 - 49 minutes QUALITY VTE Deep Vein Thrombosis/Pulmonary Embolism Present on Admission: No
--- NOTE | 2022-06-19 09:55 | General Surgery Progress Note ---
SUBJECTIVE Subjective Patient information: Note initiated : 06/19/22 at 9:47 am Service Date, if different from initiated Date: [] Patient: Harriett Lindsey 82 y/o F admitted on 06/18/22 for shortness of breath. Chief Complaint: [] Additional PMFSH (Level 3 Only): Patient seen on rounds with Guadalupe Forrester carpenter packing Nurse Pharmacy Resource Tech and Benjamin DOVER ICU nurse. Progress and wound care plans reviewed and discussed. Patient is comfortable. Lucid, conversational and NOT in distress. Reviewed progress note from [employer] Sales Representative Dr. Bolivar. Constitutional Vitals: Vital Signs Temp Pulse Resp BP Pulse Ox O2 Del Method 97.6 F 70 20 120/51 97 Room Air 06/19/22 08:01 06/19/22 08:01 06/19/22 08:01 06/19/22 08:01 06/19/22 08:01 06/19/22 08:01 Period Temp Pulse Resp BP Sys/Wilheml Pulse Ox O2 Del Method O2 Flow Rate Last 24 Hr 97.1 F-98.6 F 59-84 98-130/36-83 94-100 Room Air-Room Air Intake and Output 06/18/22 06/19/22 06/19/22 19:59 03:59 11:59 Intake Total 793 610 9486 Output Total 175 275 425 Balance 685 275 625 Weight 208 lb 204 lb 14.4 oz Intake & Output: Intake & Output 06/18/22 06/19/22 06/19/22 19:59 03:59 11:59 Intake Total 386 574 9651 Output Total 175 275 425 Balance 685 275 625 Weight 208 lb 204 lb 14.4 oz Intake: IV 137 127 1136 Sodium Chloride 0.9% 1,000 ml @ 1000 75 mls/hr IV CONT [facility] Rx#: [id number] Zithromax 500 mg In Dextrose 5% 250 in Water 250 ml @ 250 mls/hr IV ONCE ONE Rx#:[id number] Calcium Gluconate 13.95 Meq In 80 Dextrose 5% in Water 50 ml @ 200 mls/hr IV ONCE ONE Rx#: [id number] Zosyn 2.25 gm In Dextrose 5% in 50 50 50 Water 50 ml @ 100 mls/hr IV Q8H [facility] Rx#:[id number] Vancomycin 1,500 mg In Sodium 500 Chloride 0.9% 500 ml @ 333.3 mls/hr IV ONCE ONE Rx#: [id number] Oral 480 Output: Void Amount 300 Stool 175 275 125 Other: Meal Dinner Breakfast Percent of Meal Consumed 25% 100% Feeding Ability Independent Assist with Tray Set Up Urine Appearance Clear Urine Color Yellow Stool Size Small Stool Color Yellow Stool Consistency Normal for Patient # Bowel Movements 1 Exam: AVSS. Unchanged GEN. Lymphedema of both legs, Dermatitis Unchanged. VLU both lower legs lateral aspect. A/P Narrative A/P Narrative: Assessment: No interval changes since last night. Wound management is ongoing. Plan of Treatment: Plan of skin and wound care : Clean with chlorhexidine or Hibiclens. Daily VASHE / MIST treatment of VLU both legs. Later apply Bacitracin, Adaptic over open surface Antifungal / skin repair creme to surrounding skin. Kerlix bandage from ankle to upper calf DAILY. Following patient. See again intermittently. Time Spent With Patient Time: Total time spent is greater than 50% in coordination of care (as documented) at patient's floor/unit and/or counseling patient:
[2022-06-19] MEDS: FERROUS SULFATE 325 MG TABLET PO SCH (11:14)
[2022-06-19 14:01] LABS: Blood Urea Nitrogen 44 mg/dL (8-23); Calcium 7.9 mg/dL (8.6-10.4); Carbon Dioxide 17 mmol/L (22-30); Chloride 95 mmol/L (96-108); Glomerular Filtration Rate 11; Glucose 84 mg/dL (70-105)
[2022-06-19 17:39] LABS: Appearance,Urine CLOUDY (Clear); Bilirubin,Urine Negative (Negative); Color,Urine YELLOW; Culture Indicated,Urine yes; Glucose,Urine (UA) Negative (Negative); Ketones,Urine Negative (Negative); Leukocyte Esterase,Urine 500 /uL (Negative); Mucus,Urine FEW /hpf; Nitrate,Urine Negative (Negative); Protein,Urine Negative (Negative); Specific Gravity,Urine 1.013 (1.000-1.035); Urine Blood 0.03 mg/dL (Negative); Urine Budding Yeast FEW /hpf; Urine RBC 13 /hpf (0-3); Urine Squamous Epithelial Cell 2 /hpf (0-4); Urine Transitional Epi Cells 1 /hpf (0-2); Urine WBC 70 /hpf (0-4); Urobilinogen,Urine Negative
[2022-06-19] MEDS ORDERED: ZOLPIDEM 5 MG TABLET PO PRN (18:56)
[2022-06-19 19:15] LABS: Blood Urea Nitrogen 44 mg/dL (8-23); Calcium 7.8 mg/dL (8.6-10.4); Carbon Dioxide 19 mmol/L (22-30); Chloride 94 mmol/L (96-108); Glomerular Filtration Rate 11; Glucose 107 mg/dL (70-105)
[2022-06-19] MEDS: 0.9 % SODIUM CHLORIDE 1,000 ML IV SCH (20:29)
[2022-06-19] MEDS: oxyCODONE HCL 5 MG TABLET PO PRN (20:42)
[2022-06-20] MEDS: 0.9 % SODIUM CHLORIDE 10 ML SYRINGE IV SCH ×5 (00:15→21:13)
[2022-06-20 01:32] LABS: Blood Urea Nitrogen 43 mg/dL (8-23); Calcium 7.4 mg/dL (8.6-10.4); Carbon Dioxide 19 mmol/L (22-30); Chloride 96 mmol/L (96-108); Glomerular Filtration Rate 11; Glucose 112 mg/dL (70-105)
[2022-06-20] MEDS: PIPERACILLIN SODIUM/TAZOBACTAM 2.25 GM in DEXTROSE 5% IN WATER 50 ML IV SCH ×3 (05:16→21:13)
[2022-06-20] MEDS: LEVOTHYROXINE 100 MCG TABLET PO SCH (05:24)
[2022-06-20 06:17] LABS: Basophils # (Auto) 0.03 K/mcL (0.00-0.30); Basophils % (Auto) 0.3 % (0.0-2.0); Eosinophils # (Auto) 0.28 K/mcL (0.00-0.70); Eosinophils % (Auto) 2.9 % (0.0-7.0); Hematocrit 24.1 % (34.1-44.9); Hemoglobin 7.8 g/dL (11.2-15.7); Lymphocytes # (Auto) 0.87 K/mcL (1.50-4.80); Lymphocytes % (Auto) 8.9 % (15.5-49.0); Mean Cell Volume 85.5 fL (80.0-100.0); Mean Corpuscular HGB Conc 32.4 g/dL (31.0-36.0); Mean Platelet Volume 8.9 fL (8.8-12.5); Monocytes # (Auto) 0.69 K/mcL (0.10-0.90); Neutrophils % (Auto) 76.4 % (38.0-78.0); Platelet Count 255 K/mcL (140-440); RBC 2.82 M/mcL (3.59-5.38); WBC 9.8 K/mcL (4.5-11.0)
[2022-06-20 06:36] LABS: Vancomycin,Random 14.1 ug/mL
[2022-06-20] MEDS: CHOLESTYRAMINE/ASPARTAME 4 GM POWD.PACK PO SCH (07:28)
[2022-06-20] MEDS: DOCUSATE SODIUM 100 MG CAPSULE PO SCH ×2 (08:48→21:06)
[2022-06-20] MEDS: CALCIUM POLYCARBOPHIL 1 TABLET PO SCH (08:48)
[2022-06-20] MEDS: ACETAMINOPHEN 325 MG TABLET PO PRN (08:48)
[2022-06-20] MEDS: VITAMIN D3 25 MCG TABLET PO SCH (08:48)
[2022-06-20] MEDS: SODIUM BICARBONATE 650 MG TABLET PO SCH ×3 (08:48→21:06)
[2022-06-20] MEDS: APIXABAN 5 MG TABLET PO SCH ×2 (08:48→21:06)
[2022-06-20] MEDS: FLUTICASONE UMECLIDIN VILANTER INH SCH (08:49)
[2022-06-20] MEDS: MUPIROCIN OINT 2% 22GM NARES SCH ×2 (08:49→21:39)
[2022-06-20] MEDS: BISACODYL 5 MG TABLET PO SCH (08:50)
[2022-06-20] MEDS: oxyCODONE HCL 5 MG TABLET PO PRN (08:51)
[2022-06-20] MEDS: NICOTINE 14 MG PATCH TD SCH (08:51)
--- NOTE | 2022-06-20 09:54 | EKG ---
[facility] Test Date: 2022-06-18 Pat Name: Harriett Lindsey Department: ED Room: Gender: Female Contact Center Team Lead: : 1940 Requested By: Main [place] Order Number: [id number] Reading MD: Jordan Davis D.O. Measurements Intervals [place] Rate: 97 P: 38 AK: 165 QRS: -38 QRSD: 138 T: 4 QT: 359 QTc: 456 Interpretive Statements Sinus rhythm Right bundle branch block Electronically Signed On 06-20-2022 9:54:00 PDT by Jordan Davis D.O. /store/[email or web address]/[id number]
[2022-06-20 10:00] LABS: ALT/SGPT 8 U/L (<40); AST/SGOT 9 U/L (<32); Albumin 2.2 gm/dL (3.2-5.2); Albumin/Globulin Ratio 0.9 (1.0-2.3); Alkaline Phosphatase 110 U/L (39-117); Bilirubin,Total 0.2 mg/dL (0.1-1.0); Blood Urea Nitrogen 42 mg/dL (8-23); Calcium 7.5 mg/dL (8.6-10.4); Carbon Dioxide 17 mmol/L (22-30); Chloride 99 mmol/L (96-108); Globulin 2.4 gm/dL (2.2-3.7); Glomerular Filtration Rate 12; Glucose 70 mg/dL (70-105); Phosphorous 4.5 mg/dL (2.5-4.5)
--- NOTE | 2022-06-20 10:38 | Nephrology Progress Note ---
SUBJECTIVE Subjective Patient information: Note initiated : 06/20/22 at 10:34 am Patient: Harriett Lindsey 82 y/o F admitted on 06/18/22 for shortness of breath. Chief Complaint: Weakness Pertinent ROS: Weakness Edema Constitutional Vitals: Vital Signs Temp Pulse Resp BP Pulse Ox O2 Del Method 97.6 F 72 15 107/47 96 Room Air 06/20/22 07:02 06/20/22 10:34 06/20/22 10:34 06/20/22 10:00 06/20/22 10:34 06/20/22 08:00 Period Temp Pulse Resp BP Sys/Wilhelm Pulse Ox O2 Del Method O2 Flow Rate Last 24 Hr 97.6 F-98.7 F 71-80 14-21 94-129/46-60 93-99 Room Air-Room Air Intake and Output 06/19/22 06/20/22 06/20/22 19:59 03:59 11:59 Intake Total 930 50 120 Output Total 950 751 100 Balance -20 -701 20 Weight 204 lb 14.4 oz 209 lb 10.56 oz Intake & Output: Intake & Output 06/19/22 06/20/22 06/20/22 19:59 03:59 11:59 Intake Total 930 50 120 Output Total 950 751 100 Balance -20 -701 20 Weight 204 lb 14.4 oz 209 lb 10.56 oz Intake: IV 150 50 Zosyn 2.25 gm In Dextrose 5% in 50 50 Water 50 ml @ 100 mls/hr IV Q8H [facility] Rx#:[id number] Oral 780 120 Output: Urine Catheter Amount 250 Void Amount 250 # of times incontinent of urine 1 Stool 700 500 100 Other: Meal Family provided snacks Breakfast Percent of Meal Consumed 25% 100% Feeding Ability Independent Urine Appearance Clear Urine Color Yellow Urine Odor Normal Stool Size Large Stool Color Brown Brown Brown Stool Consistency Watery Liquid Watery Loose General appearance: cooperative and no acute distress Head Head exam: Present normal inspection Eye Eye exam: Present normal appearance ENT ENT exam: Present mucous membranes moist Respiratory Respiratory exam: Absent respiratory distress Cardiovascular Cardiovascular exam: Present normal rate and rhythm GI/Abdominal GI/Abdominal exam: Present soft; Absent tenderness Extremities Exam Extremities exam: Present pedal edema Neurological Exam Neurological exam: Present alert and oriented X3 Psychiatric Psychiatric exam: Present normal affect and normal mood Skin Skin exam: Present erythema (bilateral legs) A/P Assessment and plan (1) Acute renal failure superimposed on stage 4 chronic kidney disease: Assessment and plan: Harriett Lindsey is an 82-year-old female with hypertension, chronic obstructive pulmonary disease, chronic kidney disease stage 4, chronic anemia, history of DVT/PE on Apixaban and history of ostomy s/p colon resection sent to ED on 06/18/22 for shortness of breath. Nephrology consultation was requested for acute kidney injury. Acute kidney injury on chronic kidney disease stage 4 with initial hyperkalemia, metabolic acidosis and hyponatremia, present on arrival, resolving. There is no recent history of IV contrast administration or NSAID use. Intravascular volume depletion likely with ostomy output. Previous workup: Urinalysis on 05/30/22: Yellow, Cloudy, pH 5.0, SG 1.015, protein 30, blood negative, leukocyte esterase 500. CT Abdomen and Pelvis on 03/28/22: Kidneys appear unremarkable. IVC filter. Bilateral adrenal adenomas. Progress: Serum creatinine changed from 3.7 to 3.4 in the past 6 hours. Baseline serum creatinine: 1.67 (eGFR 30) on 04/25/22. Urine output: 800 ml reported in the past 24 hours. Metabolic acidosis, improved. Hyponatremia, improved. Hyperkalemia, resolved. Fluid overload with bilateral lower extremity edema. I/O: 0.9L since admit. No uremic symptoms. Recommendations/Plan: Anticipate no hemodialysis need. Continue Sodium Bicarbonate three times daily. Diuretics may be resumed. Avoid NSAIDs, nephrotoxic medications and IV contrast. Hold DAVID/ARB. Monitor BMP and urine output. Status: Acute (2) Acute hyperkalemia: Status: Acute Narrative Plan of Treatment: Plan of skin and wound care : Clean with chlorhexidine or Hibiclens. Daily VASHE / MIST treatment of VLU both legs. Later apply Bacitracin, Adaptic over open surface Antifungal / skin repair creme to surrounding skin. Kerlix bandage from ankle to upper calf DAILY. Following patient. See again intermittently. Time Spent With Patient Time: Total time spent is greater than 50% in coordination of care (as documented) at patient's floor/unit and/or counseling patient:
[2022-06-20] MEDS ORDERED: FUROSEMIDE 40 MG TABLET PO PRN (11:13)
--- NOTE | 2022-06-20 11:13 | Internal Med Progress Note ---
SUBJECTIVE Subjective Patient information: Note initiated : 06/20/22 at 11:11 am Service Date, if different from initiated Date: [] Patient: Harriett Lindsey a 82 y/o F admitted on 06/18/22 for shortness of breath. Chief Complaint: [] Interval history: Ms. Lindsey is a 82 year old F skilled nursing resident, s/p colostomy, DVT on Eliquis, hypothyroidism, chronic kidney disease, presenting with 1 week history of progressively worsening shortness of breath. She is coming of progressively worsening shortness of breath. She is coming of respiratory wheezings. She denies chest pain. She denies cough. She denies fever but she is complaining of some chills. She is also complaining of bilateral leg swelling and right lower leg swelling and pain around her chronic right lower leg wound. She is supposed to have wound care clinic follow-up today but she has been sent to our ED for further evaluation of her shortness of breath instead. Vital signs at ED presentations within normal limits. Labs significant for leukocytosis with WBC 29.2. Lactic acid 1.4. COVID screening negative. Procalcitonin elevated at 0.37. Serum sodium and potassium level 126 and 5.7, respectively. Serum bicarb is 17 suggesting mild metabolic acidosis. Serum creatinine level elevated at 3.8 with baseline around 1.6. CT of the chest abdomen pelvis showing multiple pulmonary nodules and right upper lobe infiltrate but they were stable since previous studies. 06/19: Serum sodium/potassium/magnesium 126/5.1/0.9, respectively. MRSA screening positive. All cultures no growth to date. She is on room air. Patient denies having any more shortness of breath this morning. Denies any cough or wheezing. He denies any fever chills or diaphoresis. She denies any right lower leg pain. Continue vancomycin and Zosyn for right lower leg cellulitis. Co-managing with account specialist Dr. Bowden and infectious disease. Continue IV normal saline and BMP every 6 hours for hyponatremia. Magnesium rider. Sodium bicarbonate 1300 mg p.o. 3 times daily. Physical therapy evaluation and treatment. Keep the patient in inpatient PCU. 06/20: Afebrile overnight. WBC 10.8 this morning. Wound culture growing Pseudomonas aeruginosa; blood culture no growth today. Serum sodium level, potassium level, admitting serum level 130, 4.3, and 1.9, respectively. Patient denies having any shortness of breath at the moment. She denies having any right lower leg pain at the moment. She denies any fever, chills, or diaphoresis. Good energy level. Transfer the patient from PCU to [facility]. Saline lock the patient. DC BMP every 6. Continue wound care as per wound care team. Pending infectious disease recommendations on antibiotic choice and duration. Continue sodium bicarb and resume diuretics as per nephrology recommendations. Physical therapy evaluation and treatment. Constitutional Vitals: Vital Signs Temp Pulse Resp BP Pulse Ox O2 Del Method 36.4 C 72 15 107/47 96 Room Air 06/20/22 07:02 06/20/22 10:34 06/20/22 10:34 06/20/22 10:00 06/20/22 10:34 06/20/22 08:00 Period Temp Pulse Resp BP Sys/Wilhelm Pulse Ox O2 Del Method O2 Flow Rate Last 24 Hr 36.4 C-37.1 C 71-80 14-21 94-129/46-60 93-99 Room Air-Room Air Intake and Output 06/19/22 06/20/22 06/20/22 19:59 03:59 11:59 Intake Total 547 10 7041 Output Total 950 751 100 Balance -20 -701 1070 Weight 92.941 kg 95.1 kg Intake & Output: Intake & Output 06/19/22 06/20/22 06/20/22 19:59 03:59 11:59 Intake Total 073 58 1036 Output Total 950 751 100 Balance -20 -701 1070 Weight 92.941 kg 95.1 kg Intake: IV 670 59 3707 Sodium Chloride 0.9% 1,000 ml @ 1000 75 mls/hr IV CONT POOJA Rx#: [id number] Zosyn 2.25 gm In Dextrose 5% in 50 50 50 Water 50 ml @ 100 mls/hr IV Q8H POOAJ Rx#:[id number] Oral 780 120 Output: Urine Catheter Amount 250 Void Amount 250 # of times incontinent of urine 1 Stool 700 500 100 Other: Meal Family provided snacks Breakfast Percent of Meal Consumed 25% 100% Feeding Ability Independent Urine Appearance Clear Urine Color Yellow Urine Odor Normal Stool Size Large Stool Color Brown Brown Brown Stool Consistency Watery Liquid Watery Loose General appearance: cooperative and no acute distress Exam: obese woman looks at stated age Head Head exam: Present atraumatic and normal inspection Eye Eye exam: Present normal appearance ENT ENT exam: Present mucous membranes moist, normal exam and normal external ear exam Neck Neck exam: Present normal inspection Respiratory Respiratory exam: Present normal respiratory exam Cardiovascular Cardiovascular exam: Present normal rate and rhythm GI/Abdominal GI/Abdominal exam: Present normal bowel sounds Extremities Exam Extremities exam: Present full ROM and tenderness; Absent normal inspection Additional comments: Right lower leg covered by surgical dressing Back Exam Back exam: Present normal inspection Neurological Exam Neurological exam: Present alert and oriented X3 Skin Skin exam: Present intact and warm OBJ DATA Labs 06/20/22 05:19 06/20/22 05:19 Labs: Abnormal Lab Results 06/20/22 06/20/22 06/20/22 05:19 05:19 00:16 WBC RBC 2.82 L Hgb 7.8 L Hct 24.1 L POC Hct MCHC RDW 15.0 H Immature Gran % (Auto) 4.5 H Neut % (Auto) Lymph % (Auto) 8.9 L Lymph # (Auto) 0.87 L [place] # (Auto) Immature Gran # 0.44 H Absolute Neutrophils D-Dimer ABG Methemoglobin VBG pH VBG HCO3 VBG Total CO2 VBG Base Excess Carboxyhemoglobin Total Hemoglobin POC Sodium Sodium 130 L 128 L POC Potassium Potassium POC Chloride Chloride Carbon Dioxide 17 L 19 L POC Total CO2 Anion Gap POC BUN BUN 42 H 43 H Creatinine 3.4 H 3.7 H POC Creatinine Glucose 112 H POC Glucose Osmolality Calcium 7.5 L 7.4 L Phosphorus Magnesium Alkaline Phosphatase NT-Pro-B Natriuret Pep Total Protein 4.6 L Albumin 2.2 L Albumin/Globulin Ratio 0.9 L Procalcitonin Urine Appearance Ur Leukocyte Esterase Urine RBC Urine WBC Urine Mucus Urine Yeast (Budding) 06/19/22 06/19/22 06/19/22 18:10 15:35 12:50 WBC RBC Hgb Hct POC Hct MCHC RDW Immature Gran % (Auto) Neut % (Auto) Lymph % (Auto) Lymph # (Auto) [place] # (Auto) Immature Gran # Absolute Neutrophils D-Dimer ABG Methemoglobin VBG pH VBG HCO3 VBG Total CO2 VBG Base Excess Carboxyhemoglobin Total Hemoglobin POC Sodium Sodium 128 L 126 L POC Potassium Potassium POC Chloride Chloride 94 L 95 L Carbon Dioxide 19 L 17 L POC Total CO2 Anion Gap POC BUN BUN 44 H 44 H Creatinine 3.8 H 3.6 H POC Creatinine Glucose 107 H POC Glucose Osmolality Calcium 7.8 L 7.9 L Phosphorus Magnesium Alkaline Phosphatase NT-Pro-B Natriuret Pep Total Protein Albumin Albumin/Globulin Ratio Procalcitonin Urine Appearance Cloudy A Ur Leukocyte Esterase 500 A Urine RBC 13 H Urine WBC 70 H Urine Mucus Few A Urine Yeast (Budding) Few A 06/19/22 06/19/22 06/19/22 05:25 05:24 00:31 WBC 15.8 H RBC 2.98 L Hgb 8.3 L Hct 27.6 L POC Hct MCHC 30.1 L RDW 15.4 H Immature Gran % (Auto) 2.8 H Neut % (Auto) 84.8 H Lymph % (Auto) 6.0 L Lymph # (Auto) 0.95 L [place] # (Auto) Immature Gran # 0.45 H Absolute Neutrophils 13.40 H D-Dimer ABG Methemoglobin VBG pH VBG HCO3 VBG Total CO2 VBG Base Excess Carboxyhemoglobin Total Hemoglobin POC Sodium Sodium 126 L 126 L POC Potassium Potassium POC Chloride Chloride 95 L Carbon Dioxide 15 L 17 L POC Total CO2 Anion Gap POC BUN BUN 45 H 45 H Creatinine 4.0 H 3.9 H POC Creatinine Glucose POC Glucose Osmolality Calcium 7.6 L 7.9 L Phosphorus 5.1 H Magnesium 0.9 L* Alkaline Phosphatase NT-Pro-B Natriuret Pep Total Protein 4.7 L Albumin 1.9 L Albumin/Globulin Ratio 0.7 L Procalcitonin Urine Appearance Ur Leukocyte Esterase Urine RBC Urine WBC Urine Mucus Urine Yeast (Budding) 06/18/22 06/18/22 06/18/22 18:28 13:50 13:36 WBC RBC Hgb Hct POC Hct 27.0 L MCHC RDW Immature Gran % (Auto) Neut % (Auto) Lymph % (Auto) Lymph # (Auto) [place] # (Auto) Immature Gran # Absolute Neutrophils D-Dimer ABG Methemoglobin 0.3 L VBG pH 7.23 L VBG HCO3 19.2 L VBG Total CO2 20.6 L VBG Base Excess -8 L Carboxyhemoglobin 3.6 H Total Hemoglobin 10.8 L POC Sodium 126 L Sodium 125 L POC Potassium 5.2 H Potassium POC Chloride 95 L Chloride 93 L Carbon Dioxide 18 L POC Total CO2 19.0 L Anion Gap POC BUN 44 H BUN 44 H Creatinine 3.9 H POC Creatinine 4.7 H Glucose 111 H POC Glucose 69 L Osmolality Calcium 7.9 L Phosphorus Magnesium Alkaline Phosphatase NT-Pro-B Natriuret Pep Total Protein Albumin Albumin/Globulin Ratio Procalcitonin Urine Appearance Ur Leukocyte Esterase Urine RBC Urine WBC Urine Mucus Urine Yeast (Budding) 06/18/22 06/18/22 06/18/22 07:32 07:32 07:32 WBC RBC Hgb Hct POC Hct MCHC RDW Immature Gran % (Auto) Neut % (Auto) Lymph % (Auto) Lymph # (Auto) [place] # (Auto) Immature Gran # Absolute Neutrophils D-Dimer ABG Methemoglobin VBG pH VBG HCO3 VBG Total CO2 VBG Base Excess Carboxyhemoglobin Total Hemoglobin POC Sodium Sodium 126 L POC Potassium Potassium 5.7 H POC Chloride Chloride 92 L Carbon Dioxide 17 L POC Total CO2 Anion Gap 17.0 H POC BUN BUN 42 H Creatinine 3.8 H POC Creatinine Glucose POC Glucose Osmolality 279 L Calcium 8.2 L Phosphorus Magnesium Alkaline Phosphatase 154 H NT-Pro-B Natriuret Pep 950.9 H Total Protein Albumin 3.0 L Albumin/Globulin Ratio 0.9 L Procalcitonin 0.37 H Urine Appearance Ur Leukocyte Esterase Urine RBC Urine WBC Urine Mucus Urine Yeast (Budding) 06/18/22 06/18/22 07:32 07:32 WBC 29.2 H RBC Hgb 10.4 L Hct 32.4 L POC Hct MCHC RDW 14.8 H Immature Gran % (Auto) 2.6 H Neut % (Auto) 89.5 H Lymph % (Auto) 4.1 L Lymph # (Auto) 1.21 L [place] # (Auto) 1.00 H Immature Gran # 0.76 H Absolute Neutrophils 26.07 H D-Dimer 0.94 H ABG Methemoglobin VBG pH VBG HCO3 VBG Total CO2 VBG Base Excess Carboxyhemoglobin Total Hemoglobin POC Sodium Sodium POC Potassium Potassium POC Chloride Chloride Carbon Dioxide POC Total CO2 Anion Gap POC BUN BUN Creatinine POC Creatinine Glucose POC Glucose Osmolality Calcium Phosphorus Magnesium Alkaline Phosphatase NT-Pro-B Natriuret Pep Total Protein Albumin Albumin/Globulin Ratio Procalcitonin Urine Appearance Ur Leukocyte Esterase Urine RBC Urine WBC Urine Mucus Urine Yeast (Budding) Meds: Medications Acetaminophen (Acetaminophen 325 Mg Tablet) 650 mg PO Q6HP PRN; Protocol PRN Reason: Per Pain Protocol/Fever > 101 Last Admin: 06/20/22 08:48 Dose: 650 mg Albuterol Sulfate (Albuterol Sulfate 60 Puff Inhaler) 1 puff INH Q4HP PRN PRN Reason: Shortness Of Breath Albuterol/Ipratropium (Ipratropium/Albuterol 3 Ml Ampul.Neb) 3 ml NEB Q4HRT PRN PRN Reason: Wheezing Apixaban (Apixaban 5 Mg Tablet) 2.5 mg PO BID [facility] Last Admin: 06/20/22 08:48 Dose: 2.5 mg Bisacodyl (Bisacodyl 5 Mg Tablet) 10 mg PO DAILY [facility] Last Admin: 06/20/22 08:50 Dose: Not Given Calcium Polycarbophil (Calcium Polycarbophil 1 Tablet) 1 tab PO DAILY [facility] Last Admin: 06/20/22 08:48 Dose: 1 tab Cholestyramine Resin (Cholestyramine/Aspartame 4 Gm Powd.Pack) 4 gm PO DAILY@0700 [facility] Last Admin: 06/20/22 07:28 Dose: 4 gm Docusate Sodium (Docusate Sodium 100 Mg Capsule) 100 mg PO BID [facility] Last Admin: 06/20/22 08:48 Dose: 100 mg Ferrous Sulfate (Ferrous Sulfate 325 Mg Tablet) 325 mg PO Q48H [facility] Last Admin: 06/19/22 11:14 Dose: 325 mg Piperacillin Sod/Tazobactam (Sod 2.25 gm/ Dextrose) 50 mls @ 100 mls/hr IV Q8H [facility]; Protocol Last Infusion: 06/20/22 10:43 Dose: Infused Vancomycin HCl 1,500 mg/ (Sodium Chloride) 500 mls @ 333.3 mls/hr IV ONCE ONE Stop: 06/20/22 14:30 Lactulose (Lactulose 20 Gm/30 Ml Oral.Lakshmi) 10 gm PO DAILYP PRN PRN Reason: Constipation Levothyroxine Sodium (Levothyroxine 100 Mcg Tablet) 200 mcg PO DAILY@0600 [facility] Last Admin: 06/20/22 05:24 Dose: 200 mcg Loperamide HCl (Loperamide 2 Mg Capsule) 2 mg PO Q6HP PRN PRN Reason: Diarrhea Last Admin: 06/19/22 20:43 Dose: 2 mg Mupirocin (Mupirocin Oint 2% 22gm) 1 dose NARES BID [facility] Last Admin: 06/20/22 08:49 Dose: 1 dose Nicotine (Nicotine 14 Mg Patch) 14 mg TD Q24H [facility] Last Admin: 06/20/22 08:51 Dose: 14 mg Ondansetron HCl (Ondansetron 4 Mg/2 Ml Vial) 4 mg IV Q4HP PRN; Protocol PRN Reason: Nausea And Vomiting Oxycodone HCl (Oxycodone Hcl 5 Mg Tablet) 5 mg PO Q6HP PRN; Protocol PRN Reason: Pain Last Admin: 06/20/22 08:51 Dose: 5 mg Fluticasone- Umeclidin-Vilanter 100-62.5-25 Mcg 1 dose INH QDAY [facility] Last Admin: 06/20/22 08:49 Dose: 1 dose Senna (Sennosides 1 Tablet) 2 tab PO HSP PRN PRN Reason: Constipation Sodium Bicarbonate (Sodium Bicarbonate 650 Mg Tablet) 1,300 mg PO TID [facility] Last Admin: 06/20/22 08:48 Dose: 1,300 mg Sodium Biphosphate/Sodium Phosphate (Fleets Adult Enema) 1 dose RI DAILYP PRN PRN Reason: constipation Sodium Chloride (0.9 % Sodium Chloride 10 Ml Syringe) 10 ml IV Q8 [facility] Last Admin: 06/20/22 05:16 Dose: 10 ml Vancomycin HCl (Vancomycin Per Pharmacy) 1 order IV [facility]; Protocol Vitamin D (Vitamin D3 25 Mcg Tablet) 50 mcg PO DAILY [facility] Last Admin: 06/20/22 08:48 Dose: 50 mcg Zolpidem Tartrate (Zolpidem 5 Mg Tablet) 5 mg PO HSP PRN PRN Reason: Insomnia Last Admin: 06/19/22 20:41 Dose: 5 mg ABG Interpretation ABG results: 06/18/22 13:50 ABG Methemoglobin 0.3 L VBG pH 7.23 L VBG pCO2 47.1 VBG pO2 33.5 VBG HCO3 19.2 L VBG Total CO2 20.6 L VBG O2 Saturation 57.0 VBG Base Excess -8 L A/P Assessment and plan (1) Metabolic acidosis with respiratory alkalosis: Status: Acute (2) [id number] kidney injury: Status: Acute (3) Hypothyroidism: Status: Chronic (4) Essential hypertension: Status: Chronic (5) DVT (deep venous thrombosis): Status: Acute (6) Hyponatremia: Status: Acute (7) Hyperkalemia: Status: Acute (8) Hypomagnesemia: Status: Acute Narrative A/P Narrative: Assessment and Plans: 1. Shortness of breath: DDx: Metabolic acidosis with respiratory alkalosis, pneumonia, pulmonary edema with fluid overload Inpatient PCU with telemetry VBG Treat metabolic acidosis with sodium bicarb 1300mg PO TID Daily chemistry to trend Pulmonary nodules and infiltrates stable relative to previous studies pulmonary edema with fluid overload-->no IV fluid for now, comanagement with nephrology 2. Chronic right lower leg cellulitis: Consult Dr. Bowden, recs. appreciated Consult tele-infectious disease, recs. appreciated Serial lactic acid Procalcitonin level Wound culture, Pseudomonas aeruginosa Blood culture, no growth to date cbc w/ auto diff in the morning to trend MRSA screening positive Vancomycin Zosyn Physical therapy evaluation and treatment 3. Acute on chronic kidney injury: Consult nephrology, recs. appreciated Resume Lasix PO PRN edema Avoid nephrotoxic agents such as NSAIDs, IV contrast, DAVID-/ARB CMP in the morning to trend kidney functions 4. Hyponatremia: Consult nephrology, recs. appreciated Saline lock CMP daily to trend serum sodium level 5. Hyperkalemia: RESOLVED Consult nephrology, recs. appreciated 6. Essential hypertension: Currently normotensive Continue home antihypertensives 7. Hypothyroidism: Continue oral thyroid replacement therapy 8. h/o DVT: Continue Eliquis 9. Hypomagnesemia: RESOLVED Magnesemia IV rider Daily serum Mg level to trend GI ppx: not currently indicated DVT ppx: Eliquis Code status: Full Prognosis: guarded Disposition: inpatient PCU; PT Plan of Treatment: Plan of skin and wound care : Clean with chlorhexidine or Hibiclens. Daily VASHE / MIST treatment of VLU both legs. Later apply Bacitracin, Adaptic over open surface Antifungal / skin repair creme to surrounding skin. Kerlix bandage from ankle to upper calf DAILY. Following patient. See again intermittently. Time Spent With Patient Time: Total time spent is greater than 50% in coordination of care (as documented) at patient's floor/unit and/or counseling patient: Subsequent: Total time with patient: 35 - 49 minutes QUALITY VTE Deep Vein Thrombosis/Pulmonary Embolism Present on Admission: No
[2022-06-20] MEDS ORDERED: VANCOMYCIN 1,500 MG in 0.9 % SODIUM CHLORIDE 500 ML IV ONE (13:00)
--- NOTE | 2022-06-20 14:31 | Infectious Disease Consult ---
Telemedicine Intake Consent for assessment and treatment to occur via virtual technology obtained from: Patient Location of Provider: Home Patient location: Med/Surg Unit HPI Date of Consult Consult Date: 06/20/22 Primary Care Provider: Adrien Carbajal Consult Narrative Reason for consult: wound with pseudomonas History of present illness: 82-year-old female with history of colostomy, DVT on Eliquis, hypothyroidism, chronic kidney disease, presented with 1 week history of progressively worsening shortness of breath. On admission, patient had a leukocytosis of 29. She was noted to have cellulitis of her lower extremities with a right lower leg lateral wound. Patient was started vancomycin and Zosyn for possible sepsis. She has been clinically improving. Culture from the wound is positive for Pseudomonas and ID is consulted for this reason. Per staff, on admission she had erythema of the leg. At this time the erythema has more or less resolved. She has no fever, chills. cc:: CC: Maximus Bhakta MD Review of Systems All systems: reviewed and no additional remarkable complaints except as stated PFSH PFSH All Active Problems (Updated 06/19/22 @ 09:58 by Tolu Bowden MD) Dermatitis associated with moisture (Acute) Hypomagnesemia (Acute) Hyperkalemia (Acute) Hyponatremia (Acute) DVT (deep venous thrombosis) (Acute) [id number] kidney injury (Acute) Metabolic acidosis with respiratory alkalosis (Acute) Sepsis (Acute) Chronic kidney disease (Acute) ELLA (acute kidney injury) (Acute) Wound infection (Acute) Metabolic acidosis (Acute) Acute renal failure superimposed on stage 4 chronic kidney disease (Acute) Acute hyperkalemia (Acute) Pulmonary edema (Acute) Acute UTI (Acute) Sepsis (Acute) Chronic kidney disease, stage 4 (severe) (Chronic) Dyspnea (Chronic) Vitamin B12 deficiency (Chronic) UTI (urinary tract infection) (Chronic) Asthma (Chronic) DM type 2 (diabetes mellitus, type 2) (Chronic) Allergy or toxic reaction to venom (Chronic) Swelling (Chronic) Injury of knee (Chronic) Sleep apnea (Chronic) Skin cancer of face (Chronic) Localized skin mass, lump, or swelling (Chronic) Obesity (Chronic) Nicotine dependence (Chronic) Malignant carcinoid tumor of rectum (Chronic) Malignant neoplasm of breast (Chronic) Ileostomy status (Chronic) Hypothyroidism (Chronic) Hypokalemia (Chronic) Hyperlipidemia (Chronic) GERD without esophagitis (Chronic) Essential hypertension (Chronic) Enterostomy complication (Chronic) 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) Edema (Chronic) COPD (chronic obstructive pulmonary disease) (Chronic) CKD (chronic kidney disease) (Chronic) Chest pain (Chronic) Cellulitis (Chronic) Arthralgia of hand (Chronic) Anxiety (Chronic) Pain in right hip (Chronic) Other low back pain (Chronic) Medical History (Updated 06/19/22 @ 09:58 by Tolu Bowden MD) Allergy or toxic reaction to venom ot venom of spider Anxiety Arthralgia of hand Asthma Cellulitis Chest pain Chronic kidney disease, stage 4 (severe) CKD (chronic kidney disease) COPD (chronic obstructive pulmonary disease) Dermatitis associated with moisture DM type 2 (diabetes mellitus, type 2) Dyspnea Edema Embolism of artery of lower extremity Deep Veins Enterostomy complication Essential hypertension GERD without esophagitis Hyperlipidemia Hypokalemia Hypothyroidism Injury of knee Localized skin mass, lump, or swelling Malignant carcinoid tumor of rectum Malignant neoplasm of breast Nicotine dependence Obesity Other low back pain W/right hip complaints Pain in right hip Skin cancer of face Sleep apnea Swelling head and neck lump left side UTI (urinary tract infection) Vitamin B12 deficiency Surgical History History of cholecystectomy History of colon resection (11/10/19) with diverting ostomy from complicated diverticulitis History of creation of ostomy (~01/2022) for hernia and bowel obstruction History of evacuation of hematoma (02/12/22) RLE History of hysterectomy History of knee joint replacement Left History of lumpectomy of left breast (~2010) Ileostomy status Family History Mother Heart failure Cerebral hemorrhage Father Heart failure Diabetes Social History smoking status: Former smoker alcohol intake frequency: does not drink substance use type: does not use MEDS/ALLERGIES Home Medications and Allergies Home Medications Medication Instructions Recorded Confirmed Type acetaminophen 325 mg tablet 325 mg PO ONCE PRN pain/fever 02/27/22 06/18/22 History (Tylenol) albuterol sulfate 90 mcg/actuation 1 inh inhalation ONCE 02/27/22 06/18/22 History aerosol inhaler apixaban 5 mg tablet (Eliquis) 2.5 mg PO BID 02/27/22 06/18/22 History cholecalciferol (vitamin D3) 50 50 mcg PO QDAY 02/27/22 06/18/22 History mcg (2,000 unit) capsule cholestyramine (with sugar) 4 gram 2 ea PO BID 02/27/22 06/18/22 History oral powder cyanocobalamin (vitamin B-12) 1,000 mcg PO QMONTH 02/27/22 06/18/22 History 1,000 mcg capsule levothyroxine 100 mcg capsule 200 mcg PO QDAY 02/27/22 06/18/22 History loperamide 2 mg tablet 2 mg PO Q6H PRN Diarrhea 02/27/22 06/18/22 History magnesium hydroxide 400 mg/5 mL 5 ml PO ONCE 02/27/22 06/18/22 History oral suspension (Milk of Magnesia) oxycodone 5 mg tablet 5 mg PO Q6H PRN Pain 02/27/22 06/18/22 History bisacodyl 10 mg rectal suppository 10 mg NV ONCE 06/18/22 06/18/22 History (Dulcolax (bisacodyl)) bisacodyl 5 mg tablet 10 mg PO DAILY 06/18/22 06/18/22 History ferrous sulfate 325 mg (65 mg See Rx Instructions .Route .COMPLEX 06/18/22 06/18/22 History iron) tablet fiber 2 tab PO DAILY 06/18/22 06/18/22 History fluticasone fur. 100 mcg-umeclid 1 inh inhalation QDAY 06/18/22 06/18/22 History 62.5 mcg-vilant 25 mcg inhalat.powder furosemide 40 mg tablet 40 mg PO QAM PRN lower extremity 06/18/22 06/18/22 History edema lidocaine 4 % topical patch 1 patch topical QDAY PRN Pain 06/18/22 06/18/22 History nicotine 14 mg/24 hr daily 1 patch transdermal Q24H 06/18/22 06/18/22 History transdermal patch sodium bicarbonate 650 mg tablet 650 mg PO QID 06/18/22 06/18/22 History sodium phosphates 19 gram-7 118 ml NV ONCE PRN constipation 06/18/22 06/18/22 History gram/118 mL enema (Fleet Enema) Allergies Allergy/AdvReac Type Severity Reaction Status Date / Time fluconazole Allergy Severe anaphylaxia Verified 06/18/22 14:01 codeine Allergy Mild Diarrhea, Verified 06/18/22 14:01 Nausea, vomiting methocarbamol Allergy Mild pruritis Verified 06/18/22 14:01 ciprofloxacin Allergy Unknown Unknown Verified 06/18/22 14:01 egg Allergy Unknown Unknown Verified 05/30/22 14:40 levofloxacin Allergy Unknown Unknown Verified 06/18/22 14:01 shellfish derived Allergy Unknown Unknown Verified 06/18/22 14:01 montelukast AdvReac Intermediate headache/Chest Verified 06/18/22 14:01 pain clindamycin AdvReac Mild intolerance Verified 06/18/22 14:01 metoclopramide AdvReac Mild Diarrhea Verified 06/18/22 14:01 antiseptic solution Allergy Mild hives, Uncoded 06/18/22 14:01 Urticaria, rash salmon Allergy Unknown Unknown Uncoded 06/18/22 14:01 Physical Examination Vital Signs Vital signs: Temp Pulse Resp BP Pulse Ox O2 Del Method 97.6 F 63 17 107/47 94 Room Air 06/20/22 14:00 06/20/22 11:28 06/20/22 14:00 06/20/22 10:00 06/20/22 14:06 06/20/22 14:06 Constitutional General appearance: no acute distress Integumentary Integumentary: other (She have some scaling of her bilateral feet. There are bilateral 3+ edema. There is residual erythema along she had of the bilateral lower extremities. On the lateral aspect of the right lower leg there is a large open wound stage III. There is no purulence or slough) Results Laboratory Findings 06/20/22 05:19 06/20/22 05:19 ABG, PT/INR, D-dimer: PT/INR, D-dimer D-Dimer 0.94 ug/mL (0.27-0.50) H 06/18/22 07:32 Abnormal lab findings: Abnormal Labs 06/18/22 06/18/22 06/18/22 07:32 07:32 07:32 WBC 29.2 H RBC Hgb 10.4 L Hct 32.4 L POC Hct MCHC RDW 14.8 H Immature Gran % (Auto) 2.6 H Neut % (Auto) 89.5 H Lymph % (Auto) 4.1 L Lymph # (Auto) 1.21 L [place] # (Auto) 1.00 H Immature Gran # 0.76 H Absolute Neutrophils 26.07 H D-Dimer 0.94 H ABG Methemoglobin VBG pH VBG HCO3 VBG Total CO2 VBG Base Excess Carboxyhemoglobin Total Hemoglobin POC Sodium Sodium 126 L POC Potassium Potassium 5.7 H POC Chloride Chloride 92 L Carbon Dioxide 17 L POC Total CO2 Anion Gap 17.0 H POC BUN BUN 42 H Creatinine 3.8 H POC Creatinine Glucose POC Glucose Osmolality Calcium 8.2 L Phosphorus Magnesium Alkaline Phosphatase 154 H NT-Pro-B Natriuret Pep 950.9 H Total Protein Albumin 3.0 L Albumin/Globulin Ratio 0.9 L Procalcitonin Urine Appearance Ur Leukocyte Esterase Urine RBC Urine WBC Urine Mucus Urine Yeast (Budding) 06/18/22 06/18/22 06/18/22 07:32 07:32 13:36 WBC RBC Hgb Hct POC Hct 27.0 L MCHC RDW Immature Gran % (Auto) Neut % (Auto) Lymph % (Auto) Lymph # (Auto) [place] # (Auto) Immature Gran # Absolute Neutrophils D-Dimer ABG Methemoglobin VBG pH VBG HCO3 VBG Total CO2 VBG Base Excess Carboxyhemoglobin Total Hemoglobin POC Sodium 126 L Sodium POC Potassium 5.2 H Potassium POC Chloride 95 L Chloride Carbon Dioxide POC Total CO2 19.0 L Anion Gap POC BUN 44 H BUN Creatinine POC Creatinine 4.7 H Glucose POC Glucose 69 L Osmolality 279 L Calcium Phosphorus Magnesium Alkaline Phosphatase NT-Pro-B Natriuret Pep Total Protein Albumin Albumin/Globulin Ratio Procalcitonin 0.37 H Urine Appearance Ur Leukocyte Esterase Urine RBC Urine WBC Urine Mucus Urine Yeast (Budding) 06/18/22 06/18/22 06/19/22 13:50 18:28 00:31 WBC RBC Hgb Hct POC Hct MCHC RDW Immature Gran % (Auto) Neut % (Auto) Lymph % (Auto) Lymph # (Auto) [place] # (Auto) Immature Gran # Absolute Neutrophils D-Dimer ABG Methemoglobin 0.3 L VBG pH 7.23 L VBG HCO3 19.2 L VBG Total CO2 20.6 L VBG Base Excess -8 L Carboxyhemoglobin 3.6 H Total Hemoglobin 10.8 L POC Sodium Sodium 125 L 126 L POC Potassium Potassium POC Chloride Chloride 93 L 95 L Carbon Dioxide 18 L 17 L POC Total CO2 Anion Gap POC BUN BUN 44 H 45 H Creatinine 3.9 H 3.9 H POC Creatinine Glucose 111 H POC Glucose Osmolality Calcium 7.9 L 7.9 L Phosphorus Magnesium Alkaline Phosphatase NT-Pro-B Natriuret Pep Total Protein Albumin Albumin/Globulin Ratio Procalcitonin Urine Appearance Ur Leukocyte Esterase Urine RBC Urine WBC Urine Mucus Urine Yeast (Budding) 06/19/22 06/19/22 06/19/22 05:24 05:25 12:50 WBC 15.8 H RBC 2.98 L Hgb 8.3 L Hct 27.6 L POC Hct MCHC 30.1 L RDW 15.4 H Immature Gran % (Auto) 2.8 H Neut % (Auto) 84.8 H Lymph % (Auto) 6.0 L Lymph # (Auto) 0.95 L [place] # (Auto) Immature Gran # 0.45 H Absolute Neutrophils 13.40 H D-Dimer ABG Methemoglobin VBG pH VBG HCO3 VBG Total CO2 VBG Base Excess Carboxyhemoglobin Total Hemoglobin POC Sodium Sodium 126 L 126 L POC Potassium Potassium POC Chloride Chloride 95 L Carbon Dioxide 15 L 17 L POC Total CO2 Anion Gap POC BUN BUN 45 H 44 H Creatinine 4.0 H 3.6 H POC Creatinine Glucose POC Glucose Osmolality Calcium 7.6 L 7.9 L Phosphorus 5.1 H Magnesium 0.9 L* Alkaline Phosphatase NT-Pro-B Natriuret Pep Total Protein 4.7 L Albumin 1.9 L Albumin/Globulin Ratio 0.7 L Procalcitonin Urine Appearance Ur Leukocyte Esterase Urine RBC Urine WBC Urine Mucus Urine Yeast (Budding) 06/19/22 06/19/22 06/20/22 15:35 18:10 00:16 WBC RBC Hgb Hct POC Hct MCHC RDW Immature Gran % (Auto) Neut % (Auto) Lymph % (Auto) Lymph # (Auto) [place] # (Auto) Immature Gran # Absolute Neutrophils D-Dimer ABG Methemoglobin VBG pH VBG HCO3 VBG Total CO2 VBG Base Excess Carboxyhemoglobin Total Hemoglobin POC Sodium Sodium 128 L 128 L POC Potassium Potassium POC Chloride Chloride 94 L Carbon Dioxide 19 L 19 L POC Total CO2 Anion Gap POC BUN BUN 44 H 43 H Creatinine 3.8 H 3.7 H POC Creatinine Glucose 107 H 112 H POC Glucose Osmolality Calcium 7.8 L 7.4 L Phosphorus Magnesium Alkaline Phosphatase NT-Pro-B Natriuret Pep Total Protein Albumin Albumin/Globulin Ratio Procalcitonin Urine Appearance Cloudy A Ur Leukocyte Esterase 500 A Urine RBC 13 H Urine WBC 70 H Urine Mucus Few A Urine Yeast (Budding) Few A 06/20/22 06/20/22 05:19 05:19 WBC RBC 2.82 L Hgb 7.8 L Hct 24.1 L POC Hct MCHC RDW 15.0 H Immature Gran % (Auto) 4.5 H Neut % (Auto) Lymph % (Auto) 8.9 L Lymph # (Auto) 0.87 L [place] # (Auto) Immature Gran # 0.44 H Absolute Neutrophils D-Dimer ABG Methemoglobin VBG pH VBG HCO3 VBG Total CO2 VBG Base Excess Carboxyhemoglobin Total Hemoglobin POC Sodium Sodium 130 L POC Potassium Potassium POC Chloride Chloride Carbon Dioxide 17 L POC Total CO2 Anion Gap POC BUN BUN 42 H Creatinine 3.4 H POC Creatinine Glucose POC Glucose Osmolality Calcium 7.5 L Phosphorus Magnesium Alkaline Phosphatase NT-Pro-B Natriuret Pep Total Protein 4.6 L Albumin 2.2 L Albumin/Globulin Ratio 0.9 L Procalcitonin Urine Appearance Ur Leukocyte Esterase Urine RBC Urine WBC Urine Mucus Urine Yeast (Budding) Microbiology: Microbiology 06/18/22 14:52 Leg - Lower Right Gram Stain - Final 06/18/22 14:52 Leg - Lower Right Wound Culture - Final Pseudomonas aeruginosa 06/18/22 10:52 Blood Blood Culture - Preliminary 06/18/22 10:40 Blood Blood Culture - Preliminary 06/18/22 14:52 Nose - Both Right and Left MRSA (PCR) - Final A/P Narrative A/P Narrative: Patient with bilateral lower extremity edema and an open wound on the lateral aspect of the right leg, most likely secondary to edema. Nonhealing aspect is due to the edema. She has palpable pulses and should heal well. She did have cellulitis, which is improving. Continue the patient on Zosyn for the total of 10 days. Wound care nurse will continue to do MIST with tobramycin 300 mg daily for 5 days total. Wound then can be dressed with Hydrofera Blue Plan of Treatment: Plan of skin and wound care : Clean with chlorhexidine or Hibiclens. Daily VASHE / MIST treatment of VLU both legs. Later apply Bacitracin, Adaptic over open surface Antifungal / skin repair creme to surrounding skin. Kerlix bandage from ankle to upper calf DAILY. Following patient. See again intermittently. Time Spent With Patient Time: Total time spent is greater than 50% in coordination of care (as documented) at patient's floor/unit and/or counseling patient:
[2022-06-21] MEDS: PIPERACILLIN SODIUM/TAZOBACTAM 2.25 GM in DEXTROSE 5% IN WATER 50 ML IV SCH ×3 (05:08→21:27)
[2022-06-21] MEDS: 0.9 % SODIUM CHLORIDE 10 ML SYRINGE IV SCH ×3 (05:09→21:28)
[2022-06-21] MEDS: LEVOTHYROXINE 100 MCG TABLET PO SCH (05:25)
[2022-06-21 06:17] LABS: Basophils # (Auto) 0.05 K/mcL (0.00-0.30); Basophils % (Auto) 0.5 % (0.0-2.0); Eosinophils # (Auto) 0.39 K/mcL (0.00-0.70); Eosinophils % (Auto) 3.9 % (0.0-7.0); Hematocrit 26.3 % (34.1-44.9); Hemoglobin 8.2 g/dL (11.2-15.7); Mean Cell Volume 85.7 fL (80.0-100.0); Mean Corpuscular HGB Conc 31.2 g/dL (31.0-36.0); Monocytes # (Auto) 0.72 K/mcL (0.10-0.90); Monocytes % (Auto) 7.2 % (1.0-12.0); Neutrophils % (Auto) 77.7 % (38.0-78.0); Platelet Count 284 K/mcL (140-440); RBC 3.07 M/mcL (3.59-5.38); Red Cell Distribution Width 15.2 % (11.5-14.5)
[2022-06-21 06:38] LABS: ALT/SGPT 9 U/L (<40); AST/SGOT 13 U/L (<32); Albumin/Globulin Ratio 0.8 (1.0-2.3); Alkaline Phosphatase 113 U/L (39-117); Bilirubin,Total 0.2 mg/dL (0.1-1.0); Blood Urea Nitrogen 42 mg/dL (8-23); Calcium 7.8 mg/dL (8.6-10.4); Carbon Dioxide 18 mmol/L (22-30); Chloride 101 mmol/L (96-108); Globulin 2.6 gm/dL (2.2-3.7); Glomerular Filtration Rate 14; Glucose 73 mg/dL (70-105); Phosphorous 4.9 mg/dL (2.5-4.5)
--- NOTE | 2022-06-21 07:03 | Nephrology Progress Note ---
SUBJECTIVE Subjective Patient information: Note initiated : 06/21/22 at 7:00 am Patient: Harriett Lindsey 82 y/o F admitted on 06/18/22 for shortness of breath. Chief Complaint: Weakness Pertinent ROS: Weakness Constitutional Vitals: Vital Signs Temp Pulse Resp BP Pulse Ox O2 Del Method 97.3 F 72 16 131/42 95 Room Air 06/21/22 04:08 06/21/22 04:08 06/21/22 04:08 06/21/22 04:08 06/21/22 04:08 06/21/22 04:08 Period Temp Pulse Resp BP Sys/Wilhelm Pulse Ox O2 Del Method O2 Flow Rate Last 24 Hr 97.0 F-97.6 F 63-74 15-20 94-132/40-53 94-98 Room Air-Room Air Intake and Output 06/20/22 06/21/22 06/21/22 19:59 03:59 11:59 Intake Total 890 50 320 Output Total 1000 225 100 Balance -110 -175 220 Weight 206 lb 8 oz Intake & Output: Intake & Output 06/20/22 06/21/22 06/21/22 19:59 03:59 11:59 Intake Total 890 50 320 Output Total 1000 225 100 Balance -110 -175 220 Weight 206 lb 8 oz Intake: IV 550 50 50 Zosyn 2.25 gm In Dextrose 5% in 50 50 50 Water 50 ml @ 100 mls/hr IV Q8H [facility] Rx#:[id number] Vancomycin 1,500 mg In Sodium 500 Chloride 0.9% 500 ml @ 333.3 mls/hr IV ONCE ONE Rx#: [id number] Oral 340 270 Output: Stool 1000 225 100 Other: Meal Lunch Percent of Meal Consumed 100% Feeding Ability Independent Stool Size Moderate Stool Color Green Green Brown Green Stool Consistency Liquid Liquid Liquid # Voids 1 General appearance: cooperative and no acute distress Head Head exam: Present normal inspection Eye Eye exam: Present normal appearance ENT ENT exam: Present mucous membranes moist Respiratory Respiratory exam: Absent respiratory distress Cardiovascular Cardiovascular exam: Present normal rate and rhythm GI/Abdominal GI/Abdominal exam: Present soft; Absent tenderness Extremities Exam Extremities exam: Present pedal edema Neurological Exam Neurological exam: Present alert and oriented X3 Psychiatric Psychiatric exam: Present normal affect and normal mood Skin Skin exam: Present erythema (bilateral legs) A/P Assessment and plan (1) Acute renal failure superimposed on stage 4 chronic kidney disease: Assessment and plan: Harriett Lindsey is an 82-year-old female with hypertension, chronic obstructive pulmonary disease, chronic kidney disease stage 4, chronic anemia, history of DVT/PE on Apixaban and history of ostomy s/p colon resection sent to ED on 06/18/22 for shortness of breath. Nephrology consultation was requested for acute kidney injury. Acute kidney injury on chronic kidney disease stage 4 with initial hyperkalemia, metabolic acidosis and hyponatremia, present on arrival, resolving. There is no recent history of IV contrast administration or NSAID use. Intravas cular volume depletion likely with ostomy output. Previous workup: Urinalysis on 05/30/22: Yellow, Cloudy, pH 5.0, SG 1.015, protein 30, blood negative, leukocyte esterase 500. CT Abdomen and Pelvis on 03/28/22: Kidneys appear unremarkable. IVC filter. Bilateral adrenal adenomas. Progress: Serum creatinine changed from 3.4 to 3.1 in the past 24 hours. Baseline serum creatinine: 1.67 (eGFR 30) on 04/25/22. Urine output: 200 ml reported in the past 24 hours. Metabolic acidosis, improved. Hyponatremia, improved. Hyperkalemia, resolved. Fluid overload with bilateral lower extremity edema. I/O: 1.2L since admit. No uremic symptoms. Recommendations/Plan: Anticipate no hemodialysis need. Continue Sodium Bicarbonate three times daily. Diuretics as needed. Avoid NSAIDs, nephrotoxic medications and IV contrast. Hold DAVID/ARB. Monitor BMP and urine output. Status: Acute (2) Acute hyperkalemia: Status: Acute Narrative Plan of Treatment: Plan of skin and wound care : Clean with chlorhexidine or Hibiclens. Daily VASHE / MIST treatment of VLU both legs. Later apply Bacitracin, Adaptic over open surface Antifungal / skin repair creme to surrounding skin. Kerlix bandage from ankle to upper calf DAILY. Following patient. See again intermittently. Time Spent With Patient Time: Total time spent is greater than 50% in coordination of care (as documented) at patient's floor/unit and/or counseling patient:
[2022-06-21] MEDS: CHOLESTYRAMINE/ASPARTAME 4 GM POWD.PACK PO SCH (07:11)
[2022-06-21] MEDS: VITAMIN D3 25 MCG TABLET PO SCH (08:35)
[2022-06-21] MEDS: MUPIROCIN OINT 2% 22GM NARES SCH ×2 (08:35→21:28)
[2022-06-21] MEDS: BISACODYL 5 MG TABLET PO SCH (08:36)
[2022-06-21] MEDS: SODIUM BICARBONATE 650 MG TABLET PO SCH ×3 (08:36→21:27)
[2022-06-21] MEDS: NICOTINE 14 MG PATCH TD SCH (08:36)
[2022-06-21] MEDS: CALCIUM POLYCARBOPHIL 1 TABLET PO SCH (08:36)
[2022-06-21] MEDS: APIXABAN 5 MG TABLET PO SCH ×2 (08:36→21:27)
[2022-06-21] MEDS: DOCUSATE SODIUM 100 MG CAPSULE PO SCH ×2 (08:36→21:28)
[2022-06-21] MEDS: FLUTICASONE UMECLIDIN VILANTER INH SCH (08:37)
[2022-06-21] MEDS: FERROUS SULFATE 325 MG TABLET PO SCH (11:34)
[2022-06-21] MEDS: oxyCODONE HCL 5 MG TABLET PO PRN (11:36)
[2022-06-21] MEDS: TOBRAMYCIN SULFATE 80 MG/2 ML VIAL TOPICAL SCH (12:00)
[2022-06-21 12:39] LABS: Vancomycin,Random 25.6 ug/mL
--- NOTE | 2022-06-21 13:24 | Internal Med Progress Note ---
SUBJECTIVE Subjective Patient information: Note initiated : 06/21/22 at 1:21 pm Service Date, if different from initiated Date: [] Patient: Harriett Lindsey a 82 y/o F admitted on 06/18/22 for shortness of breath. Chief Complaint: [] Interval history: Ms. Lindsey is a 82 year old F group home resident, s/p colostomy, DVT on Eliquis, hypothyroidism, chronic kidney disease, presenting with 1 week history of progressively worsening shortness of breath. She is coming of progressively worsening shortness of breath. She is coming of respiratory wheezings. She denies chest pain. She denies cough. She denies fever but she is complaining of some chills. She is also complaining of bilateral leg swelling and right lower leg swelling and pain around her chronic right lower leg wound. She is supposed to have wound care clinic follow-up today but she has been sent to our ED for further evaluation of her shortness of breath instead. Vital signs at ED presentations within normal limits. Labs significant for leukocytosis with WBC 29.2. Lactic acid 1.4. COVID screening negative. Procalcitonin elevated at 0.37. Serum sodium and potassium level 126 and 5.7, respectively. Serum bicarb is 17 suggesting mild metabolic acidosis. Serum creatinine level elevated at 3.8 with baseline around 1.6. CT of the chest abdomen pelvis showing multiple pulmonary nodules and right upper lobe infiltrate but they were stable since previous studies. 06/19: Serum sodium/potassium/magnesium 126/5.1/0.9, respectively. MRSA screening positive. All cultures no growth to date. She is on room air. Patient denies having any more shortness of breath this morning. Denies any cough or wheezing. He denies any fever chills or diaphoresis. She denies any right lower leg pain. Continue vancomycin and Zosyn for right lower leg cellulitis. Co-managing with patient support specialist Dr. Bowden and infectious disease. Continue IV normal saline and BMP every 6 hours for hyponatremia. Magnesium rider. Sodium bicarbonate 1300 mg p.o. 3 times daily. Physical therapy evaluation and treatment. Keep the patient in inpatient PCU. 06/20: Afebrile overnight. WBC 10.8 this morning. Wound culture growing Pseudomonas aeruginosa; blood culture no growth today. Serum sodium level, potassium level, admitting serum level 130, 4.3, and 1.9, respectively. Patient denies having any shortness of breath at the moment. She denies having any right lower leg pain at the moment. She denies any fever, chills, or diaphoresis. Good energy level. Transfer the patient from PCU to [facility]. Saline lock the patient. DC BMP every 6. Continue wound care as per wound care team. Pending infectious disease recommendations on antibiotic choice and duration. Continue sodium bicarb and resume diuretics as per nephrology recommendations. Physical therapy evaluation and treatment. 06/21: Afebrile overnight. No additional growth from cultures. WBC 10.0. Status post infectious disease specialist evaluations and they recommend at least 5 days of the mist treatment with tobramycin, 10 days of IV Zosyn, and DC vancomycin. Dr. Reynolds would like to keep the patient's in-house over the weekend for the mist treatment prior to discharge back to the SNF. Patient denies having any shortness of breath or pain of her right lower extremity. Constitutional Vitals: Vital Signs Temp Pulse Resp BP Pulse Ox O2 Del Method 36.3 C 84 16 134/50 99 Room Air 06/21/22 11:00 06/21/22 11:00 06/21/22 11:00 06/21/22 11:00 06/21/22 11:00 06/21/22 11:00 Period Temp Pulse Resp BP Sys/Wilhelm Pulse Ox O2 Del Method O2 Flow Rate Last 24 Hr 36.1 C-37.1 C 70-84 16-20 120-134/40-53 94-99 Room Air-Room Air Intake and Output 06/21/22 06/21/22 06/21/22 03:59 11:59 19:59 Intake Total 50 620 Output Total 225 650 Balance -175 -30 Weight 93.667 kg Intake & Output: Intake & Output 06/21/22 06/21/22 06/21/22 03:59 11:59 19:59 Intake Total 50 620 Output Total 225 650 Balance -175 -30 Weight 93.667 kg Intake: IV 50 50 Zosyn 2.25 gm In Dextrose 5% in 50 50 Water 50 ml @ 100 mls/hr IV Q8H [facility] Rx#:[id number] Oral 570 Output: Void Amount 150 Stool 225 500 Other: Meal Breakfast Percent of Meal Consumed 100% Feeding Ability Assist with Tray Set Up Urine Appearance Clear Urine Color Yellow Stool Size Moderate Stool Color Green Green Stool Consistency Liquid Loose # Voids 1 Exam: obese woman looks at stated age Head Head exam: Present atraumatic and normal inspection Eye Eye exam: Present normal appearance ENT ENT exam: Present mucous membranes moist, normal exam and normal external ear exam Neck Neck exam: Present normal inspection Respiratory Respiratory exam: Present normal respiratory exam Cardiovascular Cardiovascular exam: Present normal rate and rhythm GI/Abdominal GI/Abdominal exam: Present normal bowel sounds Additional comments: Ostomy bag in place Extremities Exam Additional comments: Right lower leg covered by wound dressing Back Exam Back exam: Present normal inspection Neurological Exam Neurological exam: Present alert and oriented X3 Skin Skin exam: Present warm; Absent intact Additional comments: Right lower leg covered by wound dressing OBJ DATA Labs 06/21/22 05:16 06/21/22 05:16 Labs: Abnormal Lab Results 06/21/22 06/21/22 06/20/22 05:16 05:16 05:19 WBC RBC 3.07 L Hgb 8.2 L Hct 26.3 L POC Hct MCHC RDW 15.2 H Immature Gran % (Auto) 3.7 H Neut % (Auto) Lymph % (Auto) 7.0 L Lymph # (Auto) 0.70 L Immature Gran # 0.37 H Absolute Neutrophils ABG Methemoglobin VBG pH VBG HCO3 VBG Total CO2 VBG Base Excess Carboxyhemoglobin Total Hemoglobin POC Sodium Sodium 132 L 130 L POC Potassium POC Chloride Chloride Carbon Dioxide 18 L 17 L POC Total CO2 POC BUN BUN 42 H 42 H Creatinine 3.1 H 3.4 H POC Creatinine Glucose POC Glucose Calcium 7.8 L 7.5 L Phosphorus 4.9 H Magnesium Total Protein 4.6 L 4.6 L Albumin 2.0 L 2.2 L Albumin/Globulin Ratio 0.8 L 0.9 L Urine Appearance Ur Leukocyte Esterase Urine RBC Urine WBC Urine Mucus Urine Yeast (Budding) 06/20/22 06/20/22 06/19/22 05:19 00:16 18:10 WBC RBC 2.82 L Hgb 7.8 L Hct 24.1 L POC Hct MCHC RDW 15.0 H Immature Gran % (Auto) 4.5 H Neut % (Auto) Lymph % (Auto) 8.9 L Lymph # (Auto) 0.87 L Immature Gran # 0.44 H Absolute Neutrophils ABG Methemoglobin VBG pH VBG HCO3 VBG Total CO2 VBG Base Excess Carboxyhemoglobin Total Hemoglobin POC Sodium Sodium 128 L 128 L POC Potassium POC Chloride Chloride 94 L Carbon Dioxide 19 L 19 L POC Total CO2 POC BUN BUN 43 H 44 H Creatinine 3.7 H 3.8 H POC Creatinine Glucose 112 H 107 H POC Glucose Calcium 7.4 L 7.8 L Phosphorus Magnesium Total Protein Albumin Albumin/Globulin Ratio Urine Appearance Ur Leukocyte Esterase Urine RBC Urine WBC Urine Mucus Urine Yeast (Budding) 06/19/22 06/19/22 06/19/22 15:35 12:50 05:25 WBC 15.8 H RBC 2.98 L Hgb 8.3 L Hct 27.6 L POC Hct MCHC 30.1 L RDW 15.4 H Immature Gran % (Auto) 2.8 H Neut % (Auto) 84.8 H Lymph % (Auto) 6.0 L Lymph # (Auto) 0.95 L Immature Gran # 0.45 H Absolute Neutrophils 13.40 H ABG Methemoglobin VBG pH VBG HCO3 VBG Total CO2 VBG Base Excess Carboxyhemoglobin Total Hemoglobin POC Sodium Sodium 126 L POC Potassium POC Chloride Chloride 95 L Carbon Dioxide 17 L POC Total CO2 POC BUN BUN 44 H Creatinine 3.6 H POC Creatinine Glucose POC Glucose Calcium 7.9 L Phosphorus Magnesium Total Protein Albumin Albumin/Globulin Ratio Urine Appearance Cloudy A Ur Leukocyte Esterase 500 A Urine RBC 13 H Urine WBC 70 H Urine Mucus Few A Urine Yeast (Budding) Few A 06/19/22 06/19/22 06/18/22 05:24 00:31 18:28 WBC RBC Hgb Hct POC Hct MCHC RDW Immature Gran % (Auto) Neut % (Auto) Lymph % (Auto) Lymph # (Auto) Immature Gran # Absolute Neutrophils ABG Methemoglobin VBG pH VBG HCO3 VBG Total CO2 VBG Base Excess Carboxyhemoglobin Total Hemoglobin POC Sodium Sodium 126 L 126 L 125 L POC Potassium POC Chloride Chloride 95 L 93 L Carbon Dioxide 15 L 17 L 18 L POC Total CO2 POC BUN BUN 45 H 45 H 44 H Creatinine 4.0 H 3.9 H 3.9 H POC Creatinine Glucose 111 H POC Glucose Calcium 7.6 L 7.9 L 7.9 L Phosphorus 5.1 H Magnesium 0.9 L* Total Protein 4.7 L Albumin 1.9 L Albumin/Globulin Ratio 0.7 L Urine Appearance Ur Leukocyte Esterase Urine RBC Urine WBC Urine Mucus Urine Yeast (Budding) 06/18/22 06/18/22 13:50 13:36 WBC RBC Hgb Hct POC Hct 27.0 L MCHC RDW Immature Gran % (Auto) Neut % (Auto) Lymph % (Auto) Lymph # (Auto) Immature Gran # Absolute Neutrophils ABG Methemoglobin 0.3 L VBG pH 7.23 L VBG HCO3 19.2 L VBG Total CO2 20.6 L VBG Base Excess -8 L Carboxyhemoglobin 3.6 H Total Hemoglobin 10.8 L POC Sodium 126 L Sodium POC Potassium 5.2 H POC Chloride 95 L Chloride Carbon Dioxide POC Total CO2 19.0 L POC BUN 44 H BUN Creatinine POC Creatinine 4.7 H Glucose POC Glucose 69 L Calcium Phosphorus Magnesium Total Protein Albumin Albumin/Globulin Ratio Urine Appearance Ur Leukocyte Esterase Urine RBC Urine WBC Urine Mucus Urine Yeast (Budding) Meds: Medications Acetaminophen (Acetaminophen 325 Mg Tablet) 650 mg PO Q6HP PRN; Protocol PRN Reason: Per Pain Protocol/Fever > 101 Last Admin: 06/20/22 08:48 Dose: 650 mg Albuterol Sulfate (Albuterol Sulfate 60 Puff Inhaler) 1 puff INH Q4HP PRN PRN Reason: Shortness Of Breath Albuterol/Ipratropium (Ipratropium/Albuterol 3 Ml Ampul.Neb) 3 ml NEB Q4HRT PRN PRN Reason: Wheezing Apixaban (Apixaban 5 Mg Tablet) 2.5 mg PO BID [facility] Last Admin: 06/21/22 08:36 Dose: 2.5 mg Bisacodyl (Bisacodyl 5 Mg Tablet) 10 mg PO DAILY [facility] Last Admin: 06/21/22 08:36 Dose: Not Given Calcium Polycarbophil (Calcium Polycarbophil 1 Tablet) 1 tab PO DAILY [facility] Last Admin: 06/21/22 08:36 Dose: 1 tab Cholestyramine Resin (Cholestyramine/Aspartame 4 Gm Powd.Pack) 4 gm PO DAILY@0700 [facility] Last Admin: 06/21/22 07:11 Dose: 4 gm Docusate Sodium (Docusate Sodium 100 Mg Capsule) 100 mg PO BID [facility] Last Admin: 06/21/22 08:36 Dose: Not Given Ferrous Sulfate (Ferrous Sulfate 325 Mg Tablet) 325 mg PO Q48H [facility] Last Admin: 06/21/22 11:34 Dose: 325 mg Furosemide (Furosemide 40 Mg Tablet) 40 mg PO QAM PRN PRN Reason: lower extremity edema Piperacillin Sod/Tazobactam (Sod 2.25 gm/ Dextrose) 50 mls @ 100 mls/hr IV Q8H [facility]; Protocol Last Infusion: 06/21/22 05:51 Dose: Infused Lactulose (Lactulose 20 Gm/30 Ml Oral.Lakshmi) 10 gm PO DAILYP PRN PRN Reason: Constipation Levothyroxine Sodium (Levothyroxine 100 Mcg Tablet) 200 mcg PO DAILY@0600 [facility] Last Admin: 06/21/22 05:25 Dose: 200 mcg Loperamide HCl (Loperamide 2 Mg Capsule) 2 mg PO Q6HP PRN PRN Reason: Diarrhea Last Admin: 06/19/22 20:43 Dose: 2 mg Mupirocin (Mupirocin Oint 2% 22gm) 1 dose NARES BID [facility] Last Admin: 06/21/22 08:35 Dose: 1 dose Nicotine (Nicotine 14 Mg Patch) 14 mg TD Q24H [facility] Last Admin: 06/21/22 08:36 Dose: 14 mg Ondansetron HCl (Ondansetron 4 Mg/2 Ml Vial) 4 mg IV Q4HP PRN; Protocol PRN Reason: Nausea And Vomiting Oxycodone HCl (Oxycodone Hcl 5 Mg Tablet) 5 mg PO Q6HP PRN; Protocol PRN Reason: Pain Last Admin: 06/21/22 11:36 Dose: 5 mg Fluticasone- Umeclidin-Vilanter 100-62.5-25 Mcg 1 dose INH QDAY [facility] Last Admin: 06/21/22 08:37 Dose: Not Given Senna (Sennosides 1 Tablet) 2 tab PO HSP PRN PRN Reason: Constipation Sodium Bicarbonate (Sodium Bicarbonate 650 Mg Tablet) 1,300 mg PO TID [facility] Last Admin: 06/21/22 08:36 Dose: 1,300 mg Sodium Biphosphate/Sodium Phosphate (Fleets Adult Enema) 1 dose PA DAILYP PRN PRN Reason: constipation Sodium Chloride (0.9 % Sodium Chloride 10 Ml Syringe) 10 ml IV Q8 [facility] Last Admin: 06/21/22 05:09 Dose: 10 ml Tobramycin Sulfate (Tobramycin Sulfate 80 Mg/2 Ml Vial) 300 mg TOPICAL DAILY [facility] Vitamin D (Vitamin D3 25 Mcg Tablet) 50 mcg PO DAILY [facility] Last Admin: 06/21/22 08:35 Dose: 50 mcg Zolpidem Tartrate (Zolpidem 5 Mg Tablet) 5 mg PO HSP PRN PRN Reason: Insomnia Last Admin: 06/19/22 20:41 Dose: 5 mg ABG Interpretation ABG results: 06/18/22 13:50 ABG Methemoglobin 0.3 L VBG pH 7.23 L VBG pCO2 47.1 VBG pO2 33.5 VBG HCO3 19.2 L VBG Total CO2 20.6 L VBG O2 Saturation 57.0 VBG Base Excess -8 L A/P Assessment and plan (1) Metabolic acidosis with respiratory alkalosis: Status: Acute (2) [id number] kidney injury: Status: Acute (3) Hypothyroidism: Status: Chronic (4) Essential hypertension: Status: Chronic (5) DVT (deep venous thrombosis): Status: Acute (6) Hyponatremia: Status: Acute (7) Hyperkalemia: Status: Acute (8) Hypomagnesemia: Status: Acute Narrative A/P Narrative: Assessment and Plans: 1. Metabolic acidosis with respiratory alkalosis: Inpatient med surg VBG Treat metabolic acidosis with sodium bicarb 1300mg PO TID Daily chemistry to trend Pulmonary nodules and infiltrates stable relative to previous studies pulmonary edema with fluid overload-->no IV fluid for now, comanagement with nephrology 2. Chronic right lower leg cellulitis: Status post infectious disease specialist evaluations and they recommend at least 5 days of the mist treatment with tobramycin, 10 days of IV Zosyn, and DC vancomycin. Dr. Reynolds would like to keep the patient's in-house over the weekend for the mist treatment prior to discharge back to the SNF on Friday06/24/22 Serial lactic acid Procalcitonin level Wound culture, Pseudomonas aeruginosa Blood culture, no growth to date cbc w/ auto diff in the morning to trend MRSA screening positive Physical therapy evaluation and treatment 3. Acute on chronic kidney injury: Consult nephrology, recs. appreciated Resume Lasix PO PRN edema Avoid nephrotoxic agents such as NSAIDs, IV contrast, DAVID-/ARB CMP in the morning to trend kidney functions 4. Hyponatremia: Consult nephrology, recs. appreciated Saline lock CMP daily to trend serum sodium level 5. Hyperkalemia: RESOLVED Consult nephrology, recs. appreciated 6. Essential hypertension: Currently normotensive Continue home antihypertensives 7. Hypothyroidism: Continue oral thyroid replacement therapy 8. h/o DVT: Continue Eliquis 9. Hypomagnesemia: RESOLVED Magnesemia IV rider Daily serum Mg level to trend GI ppx: not currently indicated DVT ppx: Eliquis Code status: Full Prognosis: Stable Disposition: inpatient med surg; SNF on Friday06/24/22 Time Spent With Patient Time: Total time spent is greater than 50% in coordination of care (as documented) at patient's floor/unit and/or counseling patient: Subsequent: Total time with patient: 35 - 49 minutes QUALITY VTE Deep Vein Thrombosis/Pulmonary Embolism Present on Admission: No
--- NOTE | 2022-06-21 13:58 | General Surgery Progress Note ---
SUBJECTIVE Subjective Patient information: Note initiated : 06/21/22 at 1:52 pm Service Date, if different from initiated Date: [] Patient: Harriett Lindsey 82 y/o F admitted on 06/18/22 for shortness of breath. Chief Complaint: [] Additional PMFSH (Level 3 Only): 06/21/2022 Patietn seen with Argelia DOVER Med Surg Nurse and Benigno Barahona RN Wound care Nurse Filling And Packing Supervisor. Reviewed Infectious disease (tele med) Consult fro Dr. david Perez MD. Recomme ndation appreciated. Constitutional Vitals: Vital Signs Temp Pulse Resp BP Pulse Ox O2 Del Method 97.4 F 84 16 134/50 99 Room Air 06/21/22 11:00 06/21/22 11:00 06/21/22 11:00 06/21/22 11:00 06/21/22 11:00 06/21/22 11:00 Period Temp Pulse Resp BP Sys/Wilhelm Pulse Ox O2 Del Method O2 Flow Rate Last 24 Hr 97.0 F-98.7 F 70-84 16-20 120-134/40-53 94-99 Room Air-Room Air Intake and Output 06/21/22 06/21/22 06/21/22 03:59 11:59 19:59 Intake Total 50 620 Output Total 225 650 Balance -175 -30 Weight 206 lb 8 oz Intake & Output: Intake & Output 06/21/22 06/21/22 06/21/22 03:59 11:59 19:59 Intake Total 50 620 Output Total 225 650 Balance -175 -30 Weight 206 lb 8 oz Intake: IV 50 50 Zosyn 2.25 gm In Dextrose 5% in 50 50 Water 50 ml @ 100 mls/hr IV Q8H [facility] Rx#:[id number] Oral 570 Output: Void Amount 150 Stool 225 500 Other: Meal Breakfast Percent of Meal Consumed 100% Feeding Ability Assist with Tray Set Up Urine Appearance Clear Urine Color Yellow Stool Size Moderate Stool Color Green Green Stool Consistency Liquid Loose # Voids 1 Exam: AVSS. Looks good and feels well. L/E; Edema and dry scales dermatitis of legs much improved. RIGHT lower lateral leg wound site is Stage 2 with GNB Pseudomonas. Responding well to MIST with tobramycin. Will continue this over week end as recommended by I.D. A/P Narrative A/P Narrative: Assessment: Progressing well. Plan of Treatment: Plan: Continue present treatment. Complete MIST with Tobramycin. Will see patient PRN over week end. Anticipate will be ready for d/c later. Time Spent With Patient Time: Total time spent is greater than 50% in coordination of care (as documented) at patient's floor/unit and/or counseling patient:
[2022-06-22] MEDS: PIPERACILLIN SODIUM/TAZOBACTAM 2.25 GM in DEXTROSE 5% IN WATER 50 ML IV SCH ×3 (05:09→21:08)
[2022-06-22] MEDS: LEVOTHYROXINE 100 MCG TABLET PO SCH (05:10)
[2022-06-22] MEDS: 0.9 % SODIUM CHLORIDE 10 ML SYRINGE IV SCH ×3 (05:10→21:08)
[2022-06-22 06:10] LABS: Basophils # (Auto) 0.05 K/mcL (0.00-0.30); Basophils % (Auto) 0.5 % (0.0-2.0); Eosinophils % (Auto) 4.2 % (0.0-7.0); Hematocrit 26.9 % (34.1-44.9); Hemoglobin 8.6 g/dL (11.2-15.7); Lymphocytes # (Auto) 0.94 K/mcL (1.50-4.80); Lymphocytes % (Auto) 9.9 % (15.5-49.0); Mean Cell Volume 85.7 fL (80.0-100.0); Mean Platelet Volume 8.9 fL (8.8-12.5); Monocytes # (Auto) 0.78 K/mcL (0.10-0.90); Monocytes % (Auto) 8.2 % (1.0-12.0); Neutrophils % (Auto) 72.1 % (38.0-78.0); Platelet Count 292 K/mcL (140-440); RBC 3.14 M/mcL (3.59-5.38); Red Cell Distribution Width 15.3 % (11.5-14.5); WBC 9.5 K/mcL (4.5-11.0)
[2022-06-22 06:32] LABS: ALT/SGPT 9 U/L (<40); AST/SGOT 14 U/L (<32); Albumin 2.1 gm/dL (3.2-5.2); Albumin/Globulin Ratio 0.8 (1.0-2.3); Alkaline Phosphatase 106 U/L (39-117); Bilirubin,Total 0.2 mg/dL (0.1-1.0); Blood Urea Nitrogen 40 mg/dL (8-23); Calcium 8.2 mg/dL (8.6-10.4); Carbon Dioxide 19 mmol/L (22-30); Chloride 102 mmol/L (96-108); Globulin 2.7 gm/dL (2.2-3.7); Glomerular Filtration Rate 15; Glucose 73 mg/dL (70-105); Phosphorous 4.8 mg/dL (2.5-4.5)
[2022-06-22] MEDS: CHOLESTYRAMINE/ASPARTAME 4 GM POWD.PACK PO SCH (06:41)
--- NOTE | 2022-06-22 06:58 | Nephrology Progress Note ---
SUBJECTIVE Subjective Patient information: Note initiated : 06/22/22 at 6:56 am Patient: Harriett Lindsey 82 y/o F admitted on 06/18/22 for shortness of breath. Chief Complaint: Weakness Pertinent ROS: Weakness Constitutional Vitals: Vital Signs Temp Pulse Resp BP Pulse Ox O2 Del Method 97.1 F 72 16 136/52 94 Room Air 06/21/22 22:45 06/21/22 22:45 06/22/22 02:58 06/21/22 22:45 06/21/22 22:45 06/21/22 22:45 Period Temp Pulse Resp BP Sys/Wilhelm Pulse Ox O2 Del Method O2 Flow Rate Last 24 Hr 97.1 F-98.7 F 70-84 16-18 120-139/50-66 94-99 Room Air-Room Air Intake and Output 06/21/22 06/22/22 06/22/22 19:59 03:59 11:59 Intake Total 1010 410 50 Output Total 1275 450 300 Balance -265 -40 -250 Weight 205 lb 8 oz Intake & Output: Intake & Output 06/21/22 06/22/22 06/22/22 19:59 03:59 11:59 Intake Total 1010 410 50 Output Total 1275 450 300 Balance -265 -40 -250 Weight 205 lb 8 oz Intake: IV 50 50 50 Zosyn 2.25 gm In Dextrose 5% in 50 50 50 Water 50 ml @ 100 mls/hr IV Q8H [facility] Rx#:[id number] Oral 960 360 Output: Void Amount 400 Stool 875 450 300 Other: Meal Dinner Percent of Meal Consumed 50% Feeding Ability Assist with Tray Set Up Urine Appearance Clear Urine Color Yellow Stool Size Small Stool Color Green Green Stool Consistency Loose Liquid # Voids 1 General appearance: cooperative and no acute distress Head Head exam: Present normal inspection Eye Eye exam: Present normal appearance ENT ENT exam: Present mucous membranes moist Respiratory Respiratory exam: Absent respiratory distress Cardiovascular Cardiovascular exam: Present normal rate and rhythm GI/Abdominal GI/Abdominal exam: Present soft; Absent tenderness Extremities Exam Extremities exam: Present pedal edema Neurological Exam Neurological exam: Present alert and oriented X3 Psychiatric Psychiatric exam: Present normal affect and normal mood Skin Skin exam: Present erythema (bilateral legs) A/P Assessment and plan (1) Acute renal failure superimposed on stage 4 chronic kidney disease: Assessment and plan: Harriett Lindsey is an 82-year-old female with hypertension, chronic obstructive pulmonary disease, chronic kidney disease stage 4, chronic anemia, history of DVT/PE on Apixaban and history of ostomy s/p colon resection sent to ED on 06/18/22 for shortness of breath. Nephrology consultation was requested for acute kidney injury. Acute kidney injury on chronic kidney disease stage 4 with initial hyperkalemia, metabolic acidosis and hyponatremia, present on arrival, resolving. Previous workup: Urinalysis on 05/30/22: Yellow, Cloudy, pH 5.0, SG 1.015, protein 30, blood negative, leukocyte esterase 500. CT Abdomen and Pelvis on 03/28/22: Kidneys appear unremarkable. IVC filter. Bilateral adrenal adenomas. Progress: Serum creatinine changed from 3.1 to 2.8 in the past 24 hours. Baseline serum creatinine: 1.67 (eGFR 30) on 04/25/22. Urine output: 550 ml reported in the past 24 hours. Metabolic acidosis, improved. Hyponatremia, resolved. Hyperkalemia, resolved. Fluid overload with bilateral lower extremity edema. I/O: +0.4L since admit. No uremic symptoms. Recommendations/Plan: Sodium Bicarbonate decreased from 1300 mg PO TID to 650 mg PO BID. Diuretics as needed. Status: Acute (2) Acute hyperkalemia: Status: Acute Narrative Plan of Treatment: Plan: Continue present treatment. Complete MIST with Tobramycin. Will see patient PRN over week end. Anticipate will be ready for d/c later. Time Spent With Patient Time: Total time spent is greater than 50% in coordination of care (as documented) at patient's floor/unit and/or counseling patient:
[2022-06-22] MEDS: CALCIUM POLYCARBOPHIL 1 TABLET PO SCH (08:07)
[2022-06-22] MEDS: APIXABAN 5 MG TABLET PO SCH ×2 (08:07→20:31)
[2022-06-22] MEDS: VITAMIN D3 25 MCG TABLET PO SCH (08:08)
[2022-06-22] MEDS: MUPIROCIN OINT 2% 22GM NARES SCH ×2 (08:08→20:31)
[2022-06-22] MEDS: FLUTICASONE UMECLIDIN VILANTER INH SCH (08:08)
[2022-06-22] MEDS: SODIUM BICARBONATE 650 MG TABLET PO SCH ×2 (08:08→20:31)
[2022-06-22] MEDS: NICOTINE 14 MG PATCH TD SCH (08:28)
[2022-06-22] MEDS: DOCUSATE SODIUM 100 MG CAPSULE PO SCH (08:28)
[2022-06-22] MEDS: BISACODYL 5 MG TABLET PO SCH (08:28)
--- NOTE | 2022-06-22 10:07 | Internal Med Progress Note ---
SUBJECTIVE Subjective Patient information: Note initiated : 06/22/22 at 10:02 am Service Date, if different from initiated Date: [] Patient: Harriett Lindsey a 82 y/o F admitted on 06/18/22 for shortness of breath. Chief Complaint: [] Interval history: Ms. Lindsey is a 82 year old F skilled nursing resident, s/p colostomy, DVT on Eliquis, hypothyroidism, chronic kidney disease, presenting with 1 week history of progressively worsening shortness of breath. She is coming of progressively worsening shortness of breath. She is coming of respiratory wheezings. She denies chest pain. She denies cough. She denies fever but she is complaining of some chills. She is also complaining of bilateral leg swelling and right lower leg swelling and pain around her chronic right lower leg wound. She is supposed to have wound care clinic follow-up today but she has been sent to our ED for further evaluation of her shortness of breath instead. Vital signs at ED presentations within normal limits. Labs significant for leukocytosis with WBC 29.2. Lactic acid 1.4. COVID screening negative. Procalcitonin elevated at 0.37. Serum sodium and potassium level 126 and 5.7, respectively. Serum bicarb is 17 suggesting mild metabolic acidosis. Serum creatinine level elevated at 3.8 with baseline around 1.6. CT of the chest abdomen pelvis showing multiple pulmonary nodules and right upper lobe infiltrate but they were stable since previous studies. 06/19: Serum sodium/potassium/magnesium 126/5.1/0.9, respectively. MRSA screening positive. All cultures no growth to date. She is on room air. Patient denies having any more shortness of breath this morning. Denies any cough or wheezing. He denies any fever chills or diaphoresis. She denies any right lower leg pain. Continue vancomycin and Zosyn for right lower leg cellulitis. Co-managing with renal medicine specialist Dr. Bowden and infectious disease. Continue IV normal saline and BMP every 6 hours for hyponatremia. Magnesium rider. Sodium bicarbonate 1300 mg p.o. 3 times daily. Physical therapy evaluation and treatment. Keep the patient in inpatient PCU. 06/20: Afebrile overnight. WBC 10.8 this morning. Wound culture growing Pseudomonas aeruginosa; blood culture no growth today. Serum sodium level, potassium level, admitting serum level 130, 4.3, and 1.9, respectively. Patient denies having any shortness of breath at the moment. She denies having any right lower leg pain at the moment. She denies any fever, chills, or diaphoresis. Good energy level. Transfer the patient [facility]. Saline lock the patient. DC BMP every 6. Continue wound care as per wound care team. Pending infectious disease recommendations on antibiotic choice and duration. Continue sodium bicarb and resume diuretics as per nephrology recommendations. Physical therapy evaluation and treatment. 06/21: Afebrile overnight. No additional growth from cultures. WBC 10.0. Status post infectious disease specialist evaluations and they recommend at least 5 days of the mist treatment with tobramycin, 10 days of IV Zosyn, and DC vancomycin. Dr. Reynolds would like to keep the patient's in-house over the weekend for the mist treatment prior to discharge back to the SNF. Patient denies having any shortness of breath or pain of her right lower extremity. 06/22: Afebrile overnight. No additional growth from cultures. WBC 9.5. Patient denies any leg pains. She is coming of sore throat. She has watery discharge from her ostomy bag. Patient denies any shortness of breath. She denies any subjective fever, chills, or diaphoresis overnight. Subculture as needed of sore throat. Hold center and Col[facility] for now. Continue 5 days of the mist treatment with tobramycin, and 10 days total of IV Zosyn. Tentative date of the discharged back to the SNF will be Friday, June 24, 2022. Constitutional Vitals: Vital Signs Temp Pulse Resp BP Pulse Ox O2 Del Method 36.3 C 71 18 127/48 95 Room Air 06/22/22 07:00 06/22/22 07:00 06/22/22 07:00 06/22/22 07:00 06/22/22 07:00 06/22/22 07:00 Period Temp Pulse Resp BP Sys/Wilhelm Pulse Ox O2 Del Method O2 Flow Rate Last 24 Hr 36.2 C-36.6 C 70-84 16-18 127-139/48-66 94-99 Room Air-Room Air Intake and Output 06/21/22 06/22/22 06/22/22 19:59 03:59 11:59 Intake Total 1010 410 530 Output Total 1275 450 975 Balance -265 -40 -445 Weight 93.213 kg Intake & Output: Intake & Output 06/21/22 06/22/22 06/22/22 19:59 03:59 11:59 Intake Total 1010 410 530 Output Total 1275 450 975 Balance -265 -40 -445 Weight 93.213 kg Intake: IV 50 50 50 Zosyn 2.25 gm In Dextrose 5% in 50 50 50 Water 50 ml @ 100 mls/hr IV Q8H [facility] Rx#:[id number] Oral 960 360 480 Output: Void Amount 400 200 Stool 875 450 775 Other: Meal Dinner Breakfast Percent of Meal Consumed 50% 100% Feeding Ability Assist with Tray Set Up Assist with Tray Set Up Urine Appearance Clear Clear Urine Color Yellow Dark Yellow Stool Size Small Large Stool Color Green Green Green Stool Consistency Loose Liquid Loose # Voids 1 General appearance: cooperative and no acute distress Exam: obese woman looks at stated age Head Head exam: Present atraumatic and normal inspection Eye Eye exam: Present normal appearance ENT ENT exam: Present mucous membranes moist, normal exam and normal external ear exam Neck Neck exam: Present normal inspection Respiratory Respiratory exam: Present normal respiratory exam Cardiovascular Cardiovascular exam: Present normal rate and rhythm GI/Abdominal GI/Abdominal exam: Present normal bowel sounds Additional comments: Ostomy bag in place Extremities Exam Extremities exam: Absent normal inspection Additional comments: Right lower leg wrapped by wound dressing Back Exam Back exam: Present normal inspection Neurological Exam Neurological exam: Present alert and oriented X3 Skin Skin exam: Present warm; Absent intact Additional comments: Right lower leg wrapped by wound dressing OBJ DATA Labs 06/22/22 05:19 06/22/22 05:19 Labs: Abnormal Lab Results 06/22/22 06/22/22 06/21/22 05:19 05:19 05:16 RBC 3.14 L Hgb 8.6 L Hct 26.9 L RDW 15.3 H Immature Gran % (Auto) 5.1 H Lymph % (Auto) 9.9 L Lymph # (Auto) 0.94 L Immature Gran # 0.48 H Sodium 132 L Chloride Carbon Dioxide 19 L 18 L BUN 40 H 42 H Creatinine 2.8 H 3.1 H Glucose Calcium 8.2 L 7.8 L Phosphorus 4.8 H 4.9 H Total Protein 4.8 L 4.6 L Albumin 2.1 L 2.0 L Albumin/Globulin Ratio 0.8 L 0.8 L Urine Appearance Ur Leukocyte Esterase Urine RBC Urine WBC Urine Mucus Urine Yeast (Budding) 06/21/22 06/20/22 06/20/22 05:16 05:19 05:19 RBC 3.07 L 2.82 L Hgb 8.2 L 7.8 L Hct 26.3 L 24.1 L RDW 15.2 H 15.0 H Immature Gran % (Auto) 3.7 H 4.5 H Lymph % (Auto) 7.0 L 8.9 L Lymph # (Auto) 0.70 L 0.87 L Immature Gran # 0.37 H 0.44 H Sodium 130 L Chloride Carbon Dioxide 17 L BUN 42 H Creatinine 3.4 H Glucose Calcium 7.5 L Phosphorus Total Protein 4.6 L Albumin 2.2 L Albumin/Globulin Ratio 0.9 L Urine Appearance Ur Leukocyte Esterase Urine RBC Urine WBC Urine Mucus Urine Yeast (Budding) 06/20/22 06/19/22 06/19/22 00:16 18:10 15:35 RBC Hgb Hct RDW Immature Gran % (Auto) Lymph % (Auto) Lymph # (Auto) Immature Gran # Sodium 128 L 128 L Chloride 94 L Carbon Dioxide 19 L 19 L BUN 43 H 44 H Creatinine 3.7 H 3.8 H Glucose 112 H 107 H Calcium 7.4 L 7.8 L Phosphorus Total Protein Albumin Albumin/Globulin Ratio Urine Appearance Cloudy A Ur Leukocyte Esterase 500 A Urine RBC 13 H Urine WBC 70 H Urine Mucus Few A Urine Yeast (Budding) Few A 06/19/22 12:50 RBC Hgb Hct RDW Immature Gran % (Auto) Lymph % (Auto) Lymph # (Auto) Immature Gran # Sodium 126 L Chloride 95 L Carbon Dioxide 17 L BUN 44 H Creatinine 3.6 H Glucose Calcium 7.9 L Phosphorus Total Protein Albumin Albumin/Globulin Ratio Urine Appearance Ur Leukocyte Esterase Urine RBC Urine WBC Urine Mucus Urine Yeast (Budding) Meds: Medications Acetaminophen (Acetaminophen 325 Mg Tablet) 650 mg PO Q6HP PRN; Protocol PRN Reason: Per Pain Protocol/Fever > 101 Last Admin: 06/20/22 08:48 Dose: 650 mg Albuterol Sulfate (Albuterol Sulfate 60 Puff Inhaler) 1 puff INH Q4HP PRN PRN Reason: Shortness Of Breath Albuterol/Ipratropium (Ipratropium/Albuterol 3 Ml Ampul.Neb) 3 ml NEB Q4HRT PRN PRN Reason: Wheezing Apixaban (Apixaban 5 Mg Tablet) 2.5 mg PO BID [facility] Last Admin: 06/22/22 08:07 Dose: 2.5 mg Bisacodyl (Bisacodyl 5 Mg Tablet) 10 mg PO DAILY [facility] Last Admin: 06/22/22 08:28 Dose: Not Given Calcium Polycarbophil (Calcium Polycarbophil 1 Tablet) 1 tab PO DAILY [facility] Last Admin: 06/22/22 08:07 Dose: 1 tab Cholestyramine Resin (Cholestyramine/Aspartame 4 Gm Powd.Pack) 4 gm PO DAILY@0700 [facility] Last Admin: 06/22/22 06:41 Dose: 4 gm Docusate Sodium (Docusate Sodium 100 Mg Capsule) 100 mg PO BID [facility] Last Admin: 06/22/22 08:28 Dose: Not Given Ferrous Sulfate (Ferrous Sulfate 325 Mg Tablet) 325 mg PO Q48H [facility] Last Admin: 06/21/22 11:34 Dose: 325 mg Furosemide (Furosemide 40 Mg Tablet) 40 mg PO QAM PRN PRN Reason: lower extremity edema Piperacillin Sod/Tazobactam (Sod 2.25 gm/ Dextrose) 50 mls @ 100 mls/hr IV Q8H [facility]; Protocol Last Infusion: 06/22/22 05:40 Dose: Infused Lactulose (Lactulose 20 Gm/30 Ml Oral.Lakshmi) 10 gm PO DAILYP PRN PRN Reason: Constipation Levothyroxine Sodium (Levothyroxine 100 Mcg Tablet) 200 mcg PO DAILY@0600 [facility] Last Admin: 06/22/22 05:10 Dose: 200 mcg Loperamide HCl (Loperamide 2 Mg Capsule) 2 mg PO Q6HP PRN PRN Reason: Diarrhea Last Admin: 06/19/22 20:43 Dose: 2 mg Mupirocin (Mupirocin Oint 2% 22gm) 1 dose NARES BID [facility] Last Admin: 06/22/22 08:08 Dose: 1 dose Nicotine (Nicotine 14 Mg Patch) 14 mg TD Q24H [facility] Last Admin: 06/22/22 08:28 Dose: 14 mg Ondansetron HCl (Ondansetron 4 Mg/2 Ml Vial) 4 mg IV Q4HP PRN; Protocol PRN Reason: Nausea And Vomiting Oxycodone HCl (Oxycodone Hcl 5 Mg Tablet) 5 mg PO Q6HP PRN; Protocol PRN Reason: Pain Last Admin: 06/21/22 11:36 Dose: 5 mg Fluticasone- Umeclidin-Vilanter 100-62.5-25 Mcg 1 dose INH QDAY [facility] Last Admin: 06/22/22 08:08 Dose: 1 dose Senna (Sennosides 1 Tablet) 2 tab PO HSP PRN PRN Reason: Constipation Sodium Bicarbonate (Sodium Bicarbonate 650 Mg Tablet) 650 mg PO BID [facility] Last Admin: 06/22/22 08:08 Dose: 650 mg Sodium Biphosphate/Sodium Phosphate (Fleets Adult Enema) 1 dose RI DAILYP PRN PRN Reason: constipation Sodium Chloride (0.9 % Sodium Chloride 10 Ml Syringe) 10 ml IV Q8 [facility] Last Admin: 06/22/22 05:10 Dose: 10 ml Tobramycin Sulfate (Tobramycin Sulfate 80 Mg/2 Ml Vial) 300 mg TOPICAL DAILY [facility] Last Admin: 06/21/22 12:00 Dose: 300 mg Vitamin D (Vitamin D3 25 Mcg Tablet) 50 mcg PO DAILY [facility] Last Admin: 06/22/22 08:08 Dose: 50 mcg Zolpidem Tartrate (Zolpidem 5 Mg Tablet) 5 mg PO HSP PRN PRN Reason: Insomnia Last Admin: 06/19/22 20:41 Dose: 5 mg ABG Interpretation ABG results: 06/18/22 13:50 ABG Methemoglobin 0.3 L VBG pH 7.23 L VBG pCO2 47.1 VBG pO2 33.5 VBG HCO3 19.2 L VBG Total CO2 20.6 L VBG O2 Saturation 57.0 VBG Base Excess -8 L A/P Assessment and plan (1) Metabolic acidosis with respiratory alkalosis: Status: Acute (2) [id number] kidney injury: Status: Acute (3) Hypothyroidism: Status: Chronic (4) Essential hypertension: Status: Chronic (5) DVT (deep venous thrombosis): Status: Acute (6) Hyponatremia: Status: Acute (7) Hyperkalemia: Status: Acute (8) Hypomagnesemia: Status: Acute Narrative A/P Narrative: Assessment and Plans: 1. Metabolic acidosis with respiratory alkalosis: Inpatient med surg VBG Treat metabolic acidosis with sodium bicarb 1300mg PO TID Daily chemistry to trend Pulmonary nodules and infiltrates stable relative to previous studies pulmonary edema with fluid overload-->no IV fluid for now, comanagement with nephrology 2. Chronic right lower leg cellulitis: Status post infectious disease specialist evaluations and they recommend at least 5 days of the mist treatment with tobramycin, 10 days of IV Zosyn, and DC vancomycin. Dr. Reynolds would like to keep the patient's in-house over the weekend for the mist treatment prior to discharge back to the SNF on Friday06/24/22 Serial lactic acid Procalcitonin level Wound culture, Pseudomonas aeruginosa Blood culture, no growth to date cbc w/ auto diff in the morning to trend MRSA screening positive Physical therapy evaluation and treatment 3. Acute on chronic kidney injury: Consult nephrology, recs. appreciated Resume Lasix PO PRN edema Avoid nephrotoxic agents such as NSAIDs, IV contrast, DAVID-/ARB CMP in the morning to trend kidney functions 4. Hyponatremia: Consult nephrology, recs. appreciated Saline lock CMP daily to trend serum sodium level 5. Hyperkalemia: RESOLVED Consult nephrology, recs. appreciated 6. Essential hypertension: Currently normotensive Continue home antihypertensives 7. Hypothyroidism: Continue oral thyroid replacement therapy 8. h/o DVT: Continue Eliquis 9. Hypomagnesemia: RESOLVED Magnesemia IV rider Daily serum Mg level to trend GI ppx: not currently indicated DVT ppx: Eliquis Code status: Full Prognosis: Stable Disposition: inpatient med surg; [facility] on Friday06/24/22 Plan of Treatment: Plan: Continue present treatment. Complete MIST with Tobramycin. Will see patient PRN over week end. Anticipate will be ready for d/c later. Time Spent With Patient Time: Total time spent is greater than 50% in coordination of care (as documented) at patient's floor/unit and/or counseling patient: Subsequent: Total time with patient: 35 - 49 minutes QUALITY VTE Deep Vein Thrombosis/Pulmonary Embolism Present on Admission: No
[2022-06-22] MEDS: BENZOCAINE/MENTHOL 1 LOZENGE PO PRN (10:45)
[2022-06-22] MEDS: oxyCODONE HCL 5 MG TABLET PO PRN (10:45)
--- NOTE | 2022-06-22 10:59 | General Surgery Progress Note ---
SUBJECTIVE Subjective Patient information: Note initiated : 06/22/22 at 10:57 am Service Date, if different from initiated Date: [] Patient: Harriett Lindsey 82 y/o F admitted on 06/18/22 for shortness of breath. Chief Complaint: [] Additional PMFSH (Level 3 Only): 06/22/2022 Patient seen with dominguez DOVER. Looks good and feels better.' Constitutional Vitals: Vital Signs Temp Pulse Resp BP Pulse Ox O2 Del Method 97.4 F 71 18 127/48 95 Room Air 06/22/22 07:00 06/22/22 07:00 06/22/22 07:00 06/22/22 07:00 06/22/22 07:00 06/22/22 07:00 Period Temp Pulse Resp BP Sys/Wilhelm Pulse Ox O2 Del Method O2 Flow Rate Last 24 Hr 97.1 F-97.9 F 70-84 16-18 127-139/48-66 94-99 Room Air-Room Air Intake and Output 06/21/22 06/22/22 06/22/22 19:59 03:59 11:59 Intake Total 1010 410 530 Output Total 5477 210 5907 Balance -265 -40 -620 Weight 205 lb 8 oz Intake & Output: Intake & Output 06/21/22 06/22/22 06/22/22 19:59 03:59 11:59 Intake Total 1010 410 530 Output Total 6401 580 5325 Balance -265 -40 -620 Weight 205 lb 8 oz Intake: IV 50 50 50 Zosyn 2.25 gm In Dextrose 5% in 50 50 50 Water 50 ml @ 100 mls/hr IV Q8H [facility] Rx#:[id number] Oral 960 360 480 Output: Void Amount 400 200 Stool 875 450 950 Other: Meal Dinner Breakfast Percent of Meal Consumed 50% 100% Feeding Ability Assist with Tray Set Up Assist with Tray Set Up Urine Appearance Clear Clear Urine Color Yellow Dark Yellow Stool Size Small Small Stool Color Green Green Green Stool Consistency Loose Liquid Loose # Voids 1 General appearance: cooperative and no acute distress Skin Additional comments: RIGHT lower lateral leg wound site is clean, dry and granulating well.. Scant serous drainage. Tolerating MIST with tobramycin. LEFT leg dermatitis resolved. Labs: Leucocytosis resolving. Hct / Platelets Stable. Creatinine trending down. A/P Narrative A/P Narrative: Assessment: satisfactory progress. RIGHT lower lateral leg VLU IMPROVING. Renal function improving. Creatinine trending down. ELLA resolving. Plan of Treatment: Plan: Continue present treatment. Complete MIST with Tobramycin. Anticipate that after discharge and stabilization of her CKD, she will need out patient wound care f/u. Will consider skin graft or skin substitute placement later. Time Spent With Patient Time: Total time spent is greater than 50% in coordination of care (as documented) at patient's floor/unit and/or counseling patient:
[2022-06-22] MEDS: TOBRAMYCIN SULFATE 80 MG/2 ML VIAL TOPICAL SCH (11:09)
[2022-06-23] MEDS: ACETAMINOPHEN 325 MG TABLET PO PRN (01:55)
[2022-06-23] MEDS: LEVOTHYROXINE 100 MCG TABLET PO SCH (05:29)
[2022-06-23] MEDS: PIPERACILLIN SODIUM/TAZOBACTAM 2.25 GM in DEXTROSE 5% IN WATER 50 ML IV SCH ×3 (05:29→21:30)
[2022-06-23] MEDS: 0.9 % SODIUM CHLORIDE 10 ML SYRINGE IV SCH ×3 (05:29→20:44)
[2022-06-23 06:22] LABS: Basophils # (Auto) 0.05 K/mcL (0.00-0.30); Basophils % (Auto) 0.5 % (0.0-2.0); Eosinophils # (Auto) 0.42 K/mcL (0.00-0.70); Eosinophils % (Auto) 4.6 % (0.0-7.0); Hemoglobin 8.3 g/dL (11.2-15.7); Lymphocytes # (Auto) 0.94 K/mcL (1.50-4.80); Lymphocytes % (Auto) 10.2 % (15.5-49.0); Mean Cell Volume 85.5 fL (80.0-100.0); Mean Corpuscular HGB Conc 31.9 g/dL (31.0-36.0); Mean Platelet Volume 9.1 fL (8.8-12.5); Monocytes # (Auto) 0.65 K/mcL (0.10-0.90); Neutrophils % (Auto) 72.6 % (38.0-78.0); Platelet Count 296 K/mcL (140-440); RBC 3.04 M/mcL (3.59-5.38); Red Cell Distribution Width 15.2 % (11.5-14.5); WBC 9.2 K/mcL (4.5-11.0)
[2022-06-23 06:41] LABS: ALT/SGPT 9 U/L (<40); AST/SGOT 11 U/L (<32); Albumin 2.3 gm/dL (3.2-5.2); Albumin/Globulin Ratio 0.9 (1.0-2.3); Alkaline Phosphatase 128 U/L (39-117); Bilirubin,Total < 0.2 mg/dL (0.1-1.0); Blood Urea Nitrogen 42 mg/dL (8-23); Calcium 8.4 mg/dL (8.6-10.4); Carbon Dioxide 21 mmol/L (22-30); Chloride 101 mmol/L (96-108); Globulin 2.6 gm/dL (2.2-3.7); Glomerular Filtration Rate 16; Glucose 88 mg/dL (70-105)
[2022-06-23] MEDS: CHOLESTYRAMINE/ASPARTAME 4 GM POWD.PACK PO SCH (06:54)
[2022-06-23] MEDS: NICOTINE 14 MG PATCH TD SCH (08:12)
[2022-06-23] MEDS: CALCIUM POLYCARBOPHIL 1 TABLET PO SCH (08:12)
[2022-06-23] MEDS: VITAMIN D3 25 MCG TABLET PO SCH (08:12)
[2022-06-23] MEDS: SODIUM BICARBONATE 650 MG TABLET PO SCH ×2 (08:12→20:43)
[2022-06-23] MEDS: MUPIROCIN OINT 2% 22GM NARES SCH ×2 (08:13→20:42)
[2022-06-23] MEDS: APIXABAN 5 MG TABLET PO SCH ×2 (08:13→20:43)
[2022-06-23] MEDS: BENZOCAINE/MENTHOL 1 LOZENGE PO PRN ×2 (08:13→20:43)
[2022-06-23] MEDS: FLUTICASONE UMECLIDIN VILANTER INH SCH (08:18)
--- NOTE | 2022-06-23 09:41 | Internal Med Progress Note ---
SUBJECTIVE Subjective Patient information: Note initiated : 06/23/22 at 9:36 am Service Date, if different from initiated Date: [] Patient: Harriett Lindsey a 82 y/o F admitted on 06/18/22 for shortness of breath. Chief Complaint: [] Interval history: Ms. Lindsey is a 82 year old F [facility] resident, s/p colostomy, DVT on Eliquis, hypothyroidism, chronic kidney disease, presenting with 1 week history of progressively worsening shortness of breath. She is coming of progressively worsening shortness of breath. She is coming of respiratory wheezings. She denies chest pain. She denies cough. She denies fever but she is complaining of some chills. She is also complaining of bilateral leg swelling and right lower leg swelling and pain around her chronic right lower leg wound. She is supposed to have wound care clinic follow-up today but she has been sent to our ED for further evaluation of her shortness of breath instead. Vital signs at ED presentations within normal limits. Labs significant for leukocytosis with WBC 29.2. Lactic acid 1.4. COVID screening negative. Procalcitonin elevated at 0.37. Serum sodium and potassium level 126 and 5.7, respectively. Serum bicarb is 17 suggesting mild metabolic acidosis. Serum creatinine level elevated at 3.8 with baseline around 1.6. CT of the chest abdomen pelvis showing multiple pulmonary nodules and right upper lobe infiltrate but they were stable since previous studies. 06/19: Serum sodium/potassium/magnesium 126/5.1/0.9, respectively. MRSA screening positive. All cultures no growth to date. She is on room air. Patient denies having any more shortness of breath this morning. Denies any cough or wheezing. He denies any fever chills or diaphoresis. She denies any right lower leg pain. Continue vancomycin and Zosyn for right lower leg cellulitis. Co-managing with strategic debriefing specialist Dr. Bowden and infectious disease. Continue IV normal saline and BMP every 6 hours for hyponatremia. Magnesium rider. Sodium bicarbonate 1300 mg p.o. 3 times daily. Physical therapy evaluation and treatment. Keep the patient in inpatient PCU. 06/20: Afebrile overnight. WBC 10.8 this morning. Wound culture growing Pseudomonas aeruginosa; blood culture no growth today. Serum sodium level, potassium level, admitting serum level 130, 4.3, and 1.9, respectively. Patient denies having any shortness of breath at the moment. She denies having any right lower leg pain at the moment. She denies any fever, chills, or diaphoresis. Good energy level. Transfer the patient from [facility] to [facility]. Saline lock the patient. DC BMP every 6. Continue wound care as per wound care team. Pending infectious disease recommendations on antibiotic choice and duration. Continue sodium bicarb and resume diuretics as per nephrology recommendations. Physical therapy evaluation and treatment. 06/21: Afebrile overnight. No additional growth from cultures. WBC 10.0. Status post infectious disease specialist evaluations and they recommend at least 5 days of the mist treatment with tobramycin, 10 days of IV Zosyn, and DC vancomycin. Dr. Reynolds would like to keep the patient's in-house over the weekend for the mist treatment prior to discharge back to the SNF. Patient denies having any shortness of breath or pain of her right lower extremity. 06/22: Afebrile overnight. No additional growth from cultures. WBC 9.5. Patient denies any leg pains. She is coming of sore throat. She has watery discharge from her ostomy bag. Patient denies any shortness of breath. She denies any subjective fever, chills, or diaphoresis overnight. Cepacol as needed of sore throat. Hold Senna and Colace and Lactulose for now. Continue 5 days of the mist treatment with tobramycin, and 10 days total of IV Zosyn. Tentative date of the discharged back to the SNF will be Friday, June 24, 2022. 4/2: Afebrile overnight. No additional growth from cultures. WBC 9.2. Patient denies any leg pains. She denies sore throat this morning. She had insomnia last night. Patient denies any shortness of breath. She denies any subjective fever, chills, or diaphoresis overnight. Continue 5 days of the mist treatment with tobramycin, and 10 days total of IV Zosyn. Tentative date of the discharged back to the SNF will be Friday, June 24, 2022. Constitutional Vitals: Vital Signs Temp Pulse Resp BP Pulse Ox O2 Del Method 36.2 C 65 18 112/54 97 Room Air 06/23/22 08:00 06/23/22 08:00 06/23/22 08:00 06/23/22 08:00 06/23/22 08:00 06/23/22 08:00 Period Temp Pulse Resp BP Sys/Wilhelm Pulse Ox O2 Del Method O2 Flow Rate Last 24 Hr 36.2 C-36.8 C 65-85 16-18 112-135/46-58 95-99 Room Air-Room Air Intake and Output 06/22/22 06/23/22 06/23/22 19:59 03:59 11:59 Intake Total 410 350 50 Output Total 675 1350 450 Balance -265 -1000 -400 Weight 93.758 kg Intake & Output: Intake & Output 06/22/22 06/23/22 06/23/22 19:59 03:59 11:59 Intake Total 410 350 50 Output Total 675 1350 450 Balance -265 -1000 -400 Weight 93.758 kg Intake: IV 50 50 50 Zosyn 2.25 gm In Dextrose 5% in 50 50 50 Water 50 ml @ 100 mls/hr IV Q8H [facility] Rx#:[id number] Oral 360 300 Output: Void Amount 250 350 200 Stool 425 1000 250 Other: Meal Dinner Percent of Meal Consumed 100% Feeding Ability Assist with Tray Set Up Urine Appearance Clear Clear Clear Urine Color Yellow Yellow Dark Yellow Stool Size Large Stool Color Brown Brown Brown Green Green Stool Consistency Loose Soft Loose Liquid Exam: obese woman looks at stated age Head Head exam: Present atraumatic and normal inspection Eye Eye exam: Present normal appearance ENT ENT exam: Present mucous membranes moist, normal exam and normal external ear exam Neck Neck exam: Present normal inspection Respiratory Respiratory exam: Present normal respiratory exam Cardiovascular Cardiovascular exam: Present normal rate and rhythm GI/Abdominal GI/Abdominal exam: Present normal bowel sounds Additional comments: Ileostomy bag in place Extremities Exam Extremities exam: Absent normal inspection Additional comments: Right lower leg covered by wound dressing Back Exam Back exam: Present normal inspection Neurological Exam Neurological exam: Present alert and oriented X3 Skin Skin exam: Absent intact Additional comments: Right lower leg covered by wound dressing OBJ DATA Labs 06/23/22 05:09 06/23/22 05:09 Labs: Abnormal Lab Results 06/23/22 06/23/22 06/22/22 05:09 05:09 05:19 RBC 3.04 L Hgb 8.3 L Hct 26.0 L RDW 15.2 H Immature Gran % (Auto) 5.1 H Lymph % (Auto) 10.2 L Lymph # (Auto) 0.94 L Immature Gran # 0.47 H Sodium Carbon Dioxide 21 L 19 L BUN 42 H 40 H Creatinine 2.7 H 2.8 H Calcium 8.4 L 8.2 L Phosphorus 5.0 H 4.8 H Alkaline Phosphatase 128 H Total Protein 4.9 L 4.8 L Albumin 2.3 L 2.1 L Albumin/Globulin Ratio 0.9 L 0.8 L 06/22/22 06/21/22 06/21/22 05:19 05:16 05:16 RBC 3.14 L 3.07 L Hgb 8.6 L 8.2 L Hct 26.9 L 26.3 L RDW 15.3 H 15.2 H Immature Gran % (Auto) 5.1 H 3.7 H Lymph % (Auto) 9.9 L 7.0 L Lymph # (Auto) 0.94 L 0.70 L Immature Gran # 0.48 H 0.37 H Sodium 132 L Carbon Dioxide 18 L BUN 42 H Creatinine 3.1 H Calcium 7.8 L Phosphorus 4.9 H Alkaline Phosphatase Total Protein 4.6 L Albumin 2.0 L Albumin/Globulin Ratio 0.8 L 06/20/22 05:19 RBC Hgb Hct RDW Immature Gran % (Auto) Lymph % (Auto) Lymph # (Auto) Immature Gran # Sodium 130 L Carbon Dioxide 17 L BUN 42 H Creatinine 3.4 H Calcium 7.5 L Phosphorus Alkaline Phosphatase Total Protein 4.6 L Albumin 2.2 L Albumin/Globulin Ratio 0.9 L Meds: Medications Acetaminophen (Acetaminophen 325 Mg Tablet) 650 mg PO Q6HP PRN; Protocol PRN Reason: Per Pain Protocol/Fever > 101 Last Admin: 06/23/22 01:55 Dose: 650 mg Albuterol Sulfate (Albuterol Sulfate 60 Puff Inhaler) 1 puff INH Q4HP PRN PRN Reason: Shortness Of Breath Albuterol/Ipratropium (Ipratropium/Albuterol 3 Ml Ampul.Neb) 3 ml NEB Q4HRT PRN PRN Reason: Wheezing Apixaban (Apixaban 5 Mg Tablet) 2.5 mg PO BID [facility]OO[facility] Last Admin: 06/23/22 08:13 Dose: 2.5 mg Calcium Polycarbophil (Calcium Polycarbophil 1 Tablet) 1 tab PO DAILY [facility] Last Admin: 06/23/22 08:12 Dose: 1 tab Cholestyramine Resin (Cholestyramine/Aspartame 4 Gm Powd.Pack) 4 gm PO DAILY@0700 [facility] Last Admin: 06/23/22 06:54 Dose: 4 gm Ferrous Sulfate (Ferrous Sulfate 325 Mg Tablet) 325 mg PO Q48H [facility] Last Admin: 06/21/22 11:34 Dose: 325 mg Furosemide (Furosemide 40 Mg Tablet) 40 mg PO QAM PRN PRN Reason: lower extremity edema Piperacillin Sod/Tazobactam (Sod 2.25 gm/ Dextrose) 50 mls @ 100 mls/hr IV Q8H [facility]; Protocol Last Infusion: 06/23/22 06:05 Dose: Infused Levothyroxine Sodium (Levothyroxine 100 Mcg Tablet) 200 mcg PO DAILY@0600 [facility] Last Admin: 06/23/22 05:29 Dose: 200 mcg Loperamide HCl (Loperamide 2 Mg Capsule) 2 mg PO Q6HP PRN PRN Reason: Diarrhea Last Admin: 06/19/22 20:43 Dose: 2 mg Mupirocin (Mupirocin Oint 2% 22gm) 1 dose NARES BID [facility] Last Admin: 06/23/22 08:13 Dose: 1 dose Nicotine (Nicotine 14 Mg Patch) 14 mg TD Q24H [facility] Last Admin: 06/23/22 08:12 Dose: 14 mg Ondansetron HCl (Ondansetron 4 Mg/2 Ml Vial) 4 mg IV Q4HP PRN; Protocol PRN Reason: Nausea And Vomiting Oxycodone HCl (Oxycodone Hcl 5 Mg Tablet) 5 mg PO Q6HP PRN; Protocol PRN Reason: Pain Last Admin: 06/22/22 10:45 Dose: 5 mg Fluticasone- Umeclidin-Vilanter 100-62.5-25 Mcg 1 dose INH QDAY [facility] Last Admin: 06/23/22 08:18 Dose: 1 dose Sodium Bicarbonate (Sodium Bicarbonate 650 Mg Tablet) 650 mg PO BID [facility] Last Admin: 06/23/22 08:12 Dose: 650 mg Sodium Biphosphate/Sodium Phosphate (Fleets Adult Enema) 1 dose MN DAILYP PRN PRN Reason: constipation Sodium Chloride (0.9 % Sodium Chloride 10 Ml Syringe) 10 ml IV Q8 [facility] Last Admin: 06/23/22 05:29 Dose: 10 ml Throat Lozenges (Benzocaine/Menthol 1 Lozenge) 1 lozenge PO PRN PRN PRN Reason: Sore Throat Last Admin: 06/23/22 08:13 Dose: 1 lozenge Tobramycin Sulfate (Tobramycin Sulfate 80 Mg/2 Ml Vial) 300 mg TOPICAL DAILY [facility] Last Admin: 06/22/22 11:09 Dose: 300 mg Vitamin D (Vitamin D3 25 Mcg Tablet) 50 mcg PO DAILY [facility] Last Admin: 06/23/22 08:12 Dose: 50 mcg Zolpidem Tartrate (Zolpidem 5 Mg Tablet) 5 mg PO HSP PRN PRN Reason: Insomnia Last Admin: 06/19/22 20:41 Dose: 5 mg ABG Interpretation ABG results: 06/18/22 13:50 ABG Methemoglobin 0.3 L VBG pH 7.23 L VBG pCO2 47.1 VBG pO2 33.5 VBG HCO3 19.2 L VBG Total CO2 20.6 L VBG O2 Saturation 57.0 VBG Base Excess -8 L A/P Assessment and plan (1) Metabolic acidosis with respiratory alkalosis: Status: Acute (2) Sebid-ut-lqsmtvl kidney injury: Status: Acute (3) Hypothyroidism: Status: Chronic (4) Essential hypertension: Status: Chronic (5) DVT (deep venous thrombosis): Status: Acute (6) Hyponatremia: Status: Acute (7) Hyperkalemia: Status: Acute (8) Hypomagnesemia: Status: Acute Narrative A/P Narrative: Assessment and Plans: 1. Metabolic acidosis with respiratory alkalosis: Inpatient med surg VBG Treat metabolic acidosis with sodium bicarb 1300mg PO TID Daily chemistry to trend Pulmonary nodules and infiltrates stable relative to previous studies pulmonary edema with fluid overload-->no IV fluid for now, comanagement with nephrology 2. Chronic right lower leg cellulitis: Status post infectious disease specialist evaluations and they recommend at least 5 days of the mist treatment with tobramycin, 10 days of IV Zosyn, and DC vancomycin. Dr. Reynolds would like to keep the patient's in-house over the weekend for the mist treatment prior to discharge back to the SNF on Friday06/24/22 Serial lactic acid Procalcitonin level Wound culture, Pseudomonas aeruginosa Blood culture, no growth to date cbc w/ auto diff in the morning to trend MRSA screening positive Physical therapy evaluation and treatment 3. Acute on chronic kidney injury: Consult nephrology, recs. appreciated Resume Lasix PO PRN edema Avoid nephrotoxic agents such as NSAIDs, IV contrast, DAVID-/ARB CMP in the morning to trend kidney functions 4. Hyponatremia: Consult nephrology, recs. appreciated Saline lock CMP daily to trend serum sodium level 5. Hyperkalemia: RESOLVED Consult nephrology, recs. appreciated 6. Essential hypertension: Currently normotensive Continue home antihypertensives 7. Hypothyroidism: Continue oral thyroid replacement therapy 8. h/o DVT: Continue Eliquis 9. Hypomagnesemia: RESOLVED Magnesemia IV rider Daily serum Mg level to trend GI ppx: not currently indicated DVT ppx: Eliquis Code status: Full Prognosis: Stable Disposition: inpatient med surg; [facility] on Friday06/24/22 Time Spent With Patient Time: Total time spent is greater than 50% in coordination of care (as documented) at patient's floor/unit and/or counseling patient: Subsequent: Total time with patient: 35 - 49 minutes QUALITY VTE Deep Vein Thrombosis/Pulmonary Embolism Present on Admission: No
[2022-06-23] MEDS: FERROUS SULFATE 325 MG TABLET PO SCH (10:49)
--- NOTE | 2022-06-23 12:27 | Nephrology Progress Note ---
SUBJECTIVE Subjective Patient information: Note initiated : 06/23/22 at 12:25 pm Service Date, if different from initiated Date: [] Patient: Harriett Lindsey a 82 y/o F admitted on 06/18/22 for shortness of breath. Chief Complaint: [SOB] Interval history: Seen examined and data reviewed. Harriett Lindsey is an 82-year-old female with hypertension, chronic obstructive pulmonary disease, chronic kidney disease stage 4, chronic anemia, history of DVT/PE on Apixaban and history of ostomy s/p colon resection sent to ED on 06/18/22 for shortness of breath. Nephrology consultation was requested for acute kidney injury. She is quite crabby and reluctant to participate in history taking. Acute kidney injury on chronic kidney disease stage 4 with initial hyperkalemia, metabolic acidosis and hyponatremia, present on arrival. There is no recent history of IV contrast administration or NSAID use. Intravascular volume depletion likely with ostomy output. Previous workup: Urinalysis on 05/30/22: Yellow, Cloudy, pH 5.0, SG 1.015, protein 30, blood negative, leukocyte esterase 500. CT Abdomen and Pelvis on 03/28/22: Kidneys appear unremarkable. IVC filter. Bilateral adrenal adenomas. Progress: Serum creatinine increased from 1.67 on 04/25/22 to 3.8 on 06/18/22. Baseline serum creatinine: 1.67 (eGFR 30) on 04/25/22. Urine output: 0 ml reported since arrival to ED. Metabolic acidosis. Hyponatremia. Hyperkalemia. Fluid overload with bilateral lower extremity edema. No uremic symptoms. Recommendations/Plan: No urgent acute hemodialysis need. Continue Sodium Bicarbonate 1300 mg twice daily. Avoid NSAIDs, nephrotoxic medications and IV contrast. Hold DAVID/ARB. Monitor BMP and urine output. Serum Sodium Serum Potassium Serum Creatinine Pertinent ROS: Breathing better No O2 Additional PMFSH (Level 3 Only): Nothing new Constitutional Vitals: Vital Signs Temp Pulse Resp BP Pulse Ox O2 Del Method 36.2 C 74 18 121/47 96 Room Air 06/23/22 11:58 06/23/22 11:58 06/23/22 11:58 06/23/22 11:58 06/23/22 11:58 06/23/22 11:58 Period Temp Pulse Resp BP Sys/Wilhelm Pulse Ox O2 Del Method O2 Flow Rate Last 24 Hr 36.2 C-36.4 C 65-85 16-18 112-135/47-58 95-99 Room Air-Room Air Intake and Output 06/23/22 06/23/22 06/23/22 03:59 11:59 19:59 Intake Total 350 50 Output Total 1350 600 Balance -1000 -550 Intake & Output: Intake & Output 06/23/22 06/23/22 06/23/22 03:59 11:59 19:59 Intake Total 350 50 Output Total 1350 600 Balance -1000 -550 Intake: IV 50 50 Zosyn 2.25 gm In Dextrose 5% in 50 50 Water 50 ml @ 100 mls/hr IV Q8H [facility] Rx#:[id number] Oral 300 Output: Void Amount 350 200 Stool 1000 400 Other: Urine Appearance Clear Clear Urine Color Yellow Dark Yellow Stool Color Brown Brown Green Stool Consistency Soft Loose Liquid General appearance: cooperative and no acute distress Head Head exam: Present normal inspection Eye Eye exam: Present normal appearance ENT ENT exam: Present mucous membranes moist Respiratory Respiratory exam: Absent respiratory distress Cardiovascular Cardiovascular exam: Present normal rate and rhythm GI/Abdominal GI/Abdominal exam: Present soft; Absent tenderness Extremities Exam Extremities exam: Present pedal edema Neurological Exam Neurological exam: Present alert and oriented X3 Psychiatric Psychiatric exam: Present normal affect and normal mood Skin Skin exam: Present erythema (bilateral legs) A/P Assessment and plan (1) Acute renal failure superimposed on stage 4 chronic kidney disease: Assessment and plan: Looking back, baseline SCr 1.1 mg/dl in late 2021, then ostomy placement, diuresis, hypotension, multiple trips to ED and admission to [facility] she had PE in RLL so transitioned from eliquis to Warfarin with bridging lovenox and SVC filter placed. For a perior of time low dose lisinopril was used, then amlodipine, the hypotensive so BP Rx stopped and IVF given with improvement in GFR. This admission with ARF, Hyperkalemia, hyponatremia, combined Respiratory and metabolic acidosis Plan: 1. Baseline SCr 1.1-1.5 mg/dl with back to back episodes of ARF suspected to be pre-renal in origin 2. Avoid RASSI, overdiuresis, NSAIDs and PEREZ 2 inhibitors 3. Stop Fleet's enema at PR due to risk of acute hypocalcemia and cardiac arrhythmia Status: Acute (2) Hyponatremia: Assessment and plan: Diuresis and no free H2O restriction Plan: Swallow all meds with nutritional supplement not water. The nutritional supplement does NOT COUNT in the daily fluid restriction. Status: Acute (3) Hyperkalemia: Assessment and plan: ACEi and ARF Plan: 1. Low K diet 2. No RAASI therapy 3. No NSAIDs Status: Acute (4) Acidosis, metabolic, with respiratory acidosis: Assessment and plan: Initial VENOUS blood gas show metabolic acidosis w/o repiratory compensation, thus more acidotic and breathless than expected as SOB was here attempt to correct the acidosis, not volume overload. Plan: Bicarb to keep serum HCO3 >22 Status: Acute Narrative A/P Narrative: OK for discharge from renal point of view following suggestions above Plan of Treatment: If renal follow up desired, send to Dr Bolivar in 3-4 weeks. Time Spent With Patient Time: Total time spent is greater than 50% in coordination of care (as documented) at patient's floor/unit and/or counseling patient:
[2022-06-23] MEDS: TOBRAMYCIN SULFATE 80 MG/2 ML VIAL TOPICAL SCH (13:12)
[2022-06-23] MEDS: oxyCODONE HCL 5 MG TABLET PO PRN (13:44)
--- NOTE | 2022-06-23 15:42 | Internal Med Progress Note ---
SUBJECTIVE Subjective Patient information: Note initiated : 06/23/22 at 3:34 pm Service Date, if different from initiated Date: [] Patient: Harriett Lindsey a 82 y/o F admitted on 06/18/22 for shortness of breath. Chief Complaint: [] Interval history: Ms. Lindsey is a 82 year old F detention resident, s/p colostomy, DVT on Eliquis, hypothyroidism, chronic kidney disease, presenting with 1 week history of progressively worsening shortness of breath. She is coming of progressively worsening shortness of breath. She is coming of respiratory wheezings. She denies chest pain. She denies cough. She denies fever but she is complaining of some chills. She is also complaining of bilateral leg swelling and right lower leg swelling and pain around her chronic right lower leg wound. She is supposed to have wound care clinic follow-up today but she has been sent to our ED for further evaluation of her shortness of breath instead. Vital signs at ED presentations within normal limits. Labs significant for leukocytosis with WBC 29.2. Lactic acid 1.4. COVID screening negative. Procalcitonin elevated at 0.37. Serum sodium and potassium level 126 and 5.7, respectively. Serum bicarb is 17 suggesting mild metabolic acidosis. Serum creatinine level elevated at 3.8 with baseline around 1.6. CT of the chest abdomen pelvis showing multiple pulmonary nodules and right upper lobe infiltrate but they were stable since previous studies. 06/19: Serum sodium/potassium/magnesium 126/5.1/0.9, respectively. MRSA screening positive. All cultures no growth to date. She is on room air. Patient denies having any more shortness of breath this morning. Denies any cough or wheezing. He denies any fever chills or diaphoresis. She denies any right lower leg pain. Continue vancomycin and Zosyn for right lower leg cellulitis. Co-managing with remote sensing specialist Dr. Bowden and infectious disease. Continue IV normal saline and BMP every 6 hours for hyponatremia. Magnesium rider. Sodium bicarbonate 1300 mg p.o. 3 times daily. Physical therapy evaluation and treatment. Keep the patient in inpatient PCU. 06/20: Afebrile overnight. WBC 10.8 this morning. Wound culture growing Pseudomonas aeruginosa; blood culture no growth today. Serum sodium level, potassium level, admitting serum level 130, 4.3, and 1.9, respectively. Patient denies having any shortness of breath at the moment. She denies having any right lower leg pain at the moment. She denies any fever, chills, or diaphoresis. Good energy level. Transfer the patient from [facility] to [facility]. Saline lock the patient. DC BMP every 6. Continue wound care as per wound care team. Pending infectious disease recommendations on antibiotic choice and duration. Continue sodium bicarb and resume diuretics as per nephrology recommendations. Physical therapy evaluation and treatment. 06/21: Afebrile overnight. No additional growth from cultures. WBC 10.0. Status post infectious disease specialist evaluations and they recommend at least 5 days of the mist treatment with tobramycin, 10 days of IV Zosyn, and DC vancomycin. Dr. Reynolds would like to keep the patient's in-house over the weekend for the mist treatment prior to discharge back to the SNF. Patient denies having any shortness of breath or pain of her right lower extremity. 06/22: Afebrile overnight. No additional growth from cultures. WBC 9.5. Patient denies any leg pains. She is coming of sore throat. She has watery discharge from her ostomy bag. Patient denies any shortness of breath. She denies any subjective fever, chills, or diaphoresis overnight. Cepacol as needed of sore throat. Hold Senna and Colace and Lactulose for now. Continue 5 days of the mist treatment with tobramycin, and 10 days total of IV Zosyn. Tentative date of the discharged back to the SNF will be Friday, June 24, 2022. 4/2: Afebrile overnight. No additional growth from cultures. WBC 9.2. Patient denies any leg pains. She denies sore throat this morning. She had insomnia last night. Patient denies any shortness of breath. She denies any subjective fever, chills, or diaphoresis overnight. Continue 5 days of the mist treatment with tobramycin, and 10 days total of IV Zosyn. Tentative date of the discharged back to the SNF will be Friday, June 24, 2022. 4/3 Review of Systems: denies headache/fever/chills/nausea/vomiting/chest or abdominal pain/cough/dyspnea/diarrhea. Otherwise see above. PHYSICAL EXAM General: Alert, Awake, No acute Distress, obese Eyes/N/T: EOMI, no scleral icterus, Head/Neck: neck supple, full ROM, CV: RRR, No murmurs, Pulm: Clear b/l, no wheezing/rhonchi/rales, no respiratory distress Abd: soft, nontender, +BS x4, ilestomy Ext: no clubbing/cyanosis. RLE erythema/edema - dressings inplace Neuro: Alert, no focal deficits, moves all extremities, , sensations intact b/l upper/lower Psychiatric: Skin: warm/dry, normal color Constitutional Vitals: Vital Signs Temp Pulse Resp BP Pulse Ox O2 Del Method 97.1 F 74 18 121/47 96 Room Air 06/23/22 11:58 06/23/22 11:58 06/23/22 11:58 06/23/22 11:58 06/23/22 11:58 06/23/22 11:58 Period Temp Pulse Resp BP Sys/Wilhelm Pulse Ox O2 Del Method O2 Flow Rate Last 24 Hr 97.1 F-97.5 F 65-85 16-18 112-135/47-54 95-99 Room Air-Room Air Intake and Output 06/23/22 06/23/22 06/23/22 03:59 11:59 19:59 Intake Total 350 50 290 Output Total 1350 600 600 Balance -1000 -550 -310 Intake & Output: Intake & Output 06/23/22 06/23/22 06/23/22 03:59 11:59 19:59 Intake Total 350 50 290 Output Total 1350 600 600 Balance -1000 -550 -310 Intake: IV 50 50 50 Zosyn 2.25 gm In Dextrose 5% in 50 50 50 Water 50 ml @ 100 mls/hr IV Q8H [facility] Rx#:[id number] Oral 300 240 Output: Void Amount 350 200 200 Stool 1000 400 400 Other: Meal Lunch Percent of Meal Consumed 100% Feeding Ability Assist with Tray Set Up Urine Appearance Clear Clear Clear Urine Color Yellow Dark Yellow Yellow Stool Color Brown Brown Green Stool Consistency Soft Loose Liquid OBJ DATA Labs 06/23/22 05:09 06/23/22 05:09 Labs: Abnormal Lab Results 06/23/22 06/23/22 06/22/22 05:09 05:09 05:19 RBC 3.04 L Hgb 8.3 L Hct 26.0 L RDW 15.2 H Immature Gran % (Auto) 5.1 H Lymph % (Auto) 10.2 L Lymph # (Auto) 0.94 L Immature Gran # 0.47 H Sodium Carbon Dioxide 21 L 19 L BUN 42 H 40 H Creatinine 2.7 H 2.8 H Calcium 8.4 L 8.2 L Phosphorus 5.0 H 4.8 H Alkaline Phosphatase 128 H Total Protein 4.9 L 4.8 L Albumin 2.3 L 2.1 L Albumin/Globulin Ratio 0.9 L 0.8 L 06/22/22 06/21/22 06/21/22 05:19 05:16 05:16 RBC 3.14 L 3.07 L Hgb 8.6 L 8.2 L Hct 26.9 L 26.3 L RDW 15.3 H 15.2 H Immature Gran % (Auto) 5.1 H 3.7 H Lymph % (Auto) 9.9 L 7.0 L Lymph # (Auto) 0.94 L 0.70 L Immature Gran # 0.48 H 0.37 H Sodium 132 L Carbon Dioxide 18 L BUN 42 H Creatinine 3.1 H Calcium 7.8 L Phosphorus 4.9 H Alkaline Phosphatase Total Protein 4.6 L Albumin 2.0 L Albumin/Globulin Ratio 0.8 L Meds: Medications Acetaminophen (Acetaminophen 325 Mg Tablet) 650 mg PO Q6HP PRN; Protocol PRN Reason: Per Pain Protocol/Fever > 101 Last Admin: 06/23/22 01:55 Dose: 650 mg Albuterol Sulfate (Albuterol Sulfate 60 Puff Inhaler) 1 puff INH Q4HP PRN PRN Reason: Shortness Of Breath Albuterol/Ipratropium (Ipratropium/Albuterol 3 Ml Ampul.Neb) 3 ml NEB Q4HRT PRN PRN Reason: Wheezing Apixaban (Apixaban 5 Mg Tablet) 2.5 mg PO BID [facility] Last Admin: 06/23/22 08:13 Dose: 2.5 mg Calcium Polycarbophil (Calcium Polycarbophil 1 Tablet) 1 tab PO DAILY [facility] Last Admin: 06/23/22 08:12 Dose: 1 tab Cholestyramine Resin (Cholestyramine/Aspartame 4 Gm Powd.Pack) 4 gm PO DAILY@0700 [facility] Last Admin: 06/23/22 06:54 Dose: 4 gm Ferrous Sulfate (Ferrous Sulfate 325 Mg Tablet) 325 mg PO Q48H [facility] Last Admin: 06/23/22 10:49 Dose: 325 mg Furosemide (Furosemide 40 Mg Tablet) 40 mg PO QAM PRN PRN Reason: lower extremity edema Piperacillin Sod/Tazobactam (Sod 2.25 gm/ Dextrose) 50 mls @ 100 mls/hr IV Q8H [facility]; Protocol Last Infusion: 06/23/22 14:34 Dose: Infused Levothyroxine Sodium (Levothyroxine 100 Mcg Tablet) 200 mcg PO DAILY@0600 [facility] Last Admin: 06/23/22 05:29 Dose: 200 mcg Loperamide HCl (Loperamide 2 Mg Capsule) 2 mg PO Q6HP PRN PRN Reason: Diarrhea Last Admin: 06/19/22 20:43 Dose: 2 mg Mupirocin (Mupirocin Oint 2% 22gm) 1 dose NARES BID [facility] Last Admin: 06/23/22 08:13 Dose: 1 dose Nicotine (Nicotine 14 Mg Patch) 14 mg TD Q24H [facility] Last Admin: 06/23/22 08:12 Dose: 14 mg Ondansetron HCl (Ondansetron 4 Mg/2 Ml Vial) 4 mg IV Q4HP PRN; Protocol PRN Reason: Nausea And Vomiting Oxycodone HCl (Oxycodone Hcl 5 Mg Tablet) 5 mg PO Q6HP PRN; Protocol PRN Reason: Pain Last Admin: 06/23/22 13:44 Dose: 5 mg Fluticasone- Umeclidin-Vilanter 100-62.5-25 Mcg 1 dose INH QDAY [facility] Last Admin: 06/23/22 08:18 Dose: 1 dose Sodium Bicarbonate (Sodium Bicarbonate 650 Mg Tablet) 650 mg PO BID [facility] Last Admin: 06/23/22 08:12 Dose: 650 mg Sodium Biphosphate/Sodium Phosphate (Fleets Adult Enema) 1 dose SC DAILYP PRN PRN Reason: constipation Sodium Chloride (0.9 % Sodium Chloride 10 Ml Syringe) 10 ml IV Q8 [facility] Last Admin: 06/23/22 14:13 Dose: 10 ml Throat Lozenges (Benzocaine/Menthol 1 Lozenge) 1 lozenge PO PRN PRN PRN Reason: Sore Throat Last Admin: 06/23/22 08:13 Dose: 1 lozenge Tobramycin Sulfate (Tobramycin Sulfate 80 Mg/2 Ml Vial) 300 mg TOPICAL DAILY [facility] Last Admin: 06/23/22 13:12 Dose: 300 mg Vitamin D (Vitamin D3 25 Mcg Tablet) 50 mcg PO DAILY [facility] Last Admin: 06/23/22 08:12 Dose: 50 mcg Zolpidem Tartrate (Zolpidem 5 Mg Tablet) 5 mg PO HSP PRN PRN Reason: Insomnia Last Admin: 06/19/22 20:41 Dose: 5 mg ABG Interpretation ABG results: 06/18/22 13:50 ABG Methemoglobin 0.3 L VBG pH 7.23 L VBG pCO2 47.1 VBG pO2 33.5 VBG HCO3 19.2 L VBG Total CO2 20.6 L VBG O2 Saturation 57.0 VBG Base Excess -8 L A/P Narrative A/P Narrative: Assessment and Plans: *Metabolic acidosis with respiratory alkalosis: -VBG -Nephrology following -sodium bicarb TID -Daily chemistry to trend - *Pulmonary edema with fluid overload-->no IV fluid for now, comanagement with nephrology *Pulmonary nodules and infiltrates stable relative to previous studies: *Chronic right lower leg cellulitis: -s/p ID Eval> recs at least 5 days of the mist treatment with tobramycin, 10 days of IV Zosyn, and DC vancomycin. -Dr. 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 Bolivar *Hyponatremia/Hypomagnesemia: -Consult nephrology, recs. appreciated -CMP daily to trend serum sodium level and mag *Hyperkalemia: RESOLVED -Consult nephrology, recs. appreciated *Anemia, chronic: *Essential hypertension: Currently normotensive, Continue home antihypertensives *Hypothyroidism: Continue oral thyroid replacement therapy *h/o DVT: Continue Eliquis *ppx: Eliquis Code status: Full Plan of Treatment: If renal follow up desired, send to Dr Bolivar in 3-4 weeks. Time Spent With Patient Time: Total time spent is greater than 50% in coordination of care (as documented) at patient's floor/unit and/or counseling patient: QUALITY VTE Deep Vein Thrombosis/Pulmonary Embolism Present on Admission: No
--- NOTE | 2022-06-23 15:48 | Discharge Summary ---
Discharge Provider Provider IMPORTANT FOLLOW-UP INFORMATION FOR PCP: Patient information: Note initiated : 06/23/22 at 3:45 pm Service Date, if different from initiated Date: [] Patient: Harriett Lindsey 82 y/o F admitted on 06/18/22 for shortness of breath. Chief Complaint: [] Date of admission: 06/18/22 14:52 Discharge date: 06/24/22 Primary care physician: Adrien Carbajal Consults: 06/18/22 10:15 Consult to Physician [CONS] Stat Comment: Consulting Provider: Robert Bolivar Reason For Exam: Physician to Consult 06/18/22 11:20 Consult to Physician [CONS] Stat Comment: Consulting Provider: Maximus Bhakta Reason For Exam: Physician to Consult 06/18/22 14:52 Consult to Physician [CONS] Stat Comment: Consulting Provider: Tolu Bowden Reason For Exam: Physician to Consult 06/18/22 17:54 Consult to Physician [CONS] Routine Comment: Consulting Provider: Dontae Hendrix - ID Reason For Exam: Physician to Consult COURSE Hospital Course Hospital course: Interval history: Ms. Lindsey is a 82 year old F [place] [facility] resident, s/p colostomy, DVT on Eliquis, hypothyroidism, chronic kidney disease, presenting with 1 week history of progressively worsening shortness of breath. She is coming of progressively worsening shortness of breath. She is coming of respiratory wheezings. She denies chest pain. She denies cough. She denies fever but she is complaining of some chills. She is also complaining of bilateral leg swelling and right lower leg swelling and pain around her chronic right lower leg wound. She is supposed to have wound care clinic follow-up today but she has been sent to our ED for further evaluation of her shortness of breath instead. Vital signs at ED presentations within normal limits. Labs significant for leukocytosis with WBC 29.2. Lactic acid 1.4. COVID screening negative. Procalcitonin elevated at 0.37. Serum sodium and potassium level 126 and 5.7, respectively. Serum bicarb is 17 suggesting mild metabolic acidosis. Serum creatinine level elevated at 3.8 with baseline around 1.6. CT of the chest abdomen pelvis showing multiple pulmonary nodules and right upper lobe infiltrate but they were stable since previous studies. 06/19: Serum sodium/potassium/magnesium 126/5.1/0.9, respectively. MRSA screening positive. All cultures no growth to date. She is on room air. Patient denies having any more shortness of breath this morning. Denies any cough or wheezing. He denies any fever chills or diaphoresis. She denies any right lower leg pain. Continue vancomycin and Zosyn for right lower leg cellulitis. Co-managing with youth care specialist Dr. Bowden and infectious disease. Continue IV normal saline and BMP every 6 hours for hyponatremia. Magnesium rider. Sodium bicarbonate 1300 mg p.o. 3 times daily. Physical therapy evaluation and treatment. Keep the patient in inpatient PCU. 06/20: Afebrile overnight. WBC 10.8 this morning. Wound culture growing Pseudomonas aeruginosa; blood culture no growth today. Serum sodium level, potassium level, admitting serum level 130, 4.3, and 1.9, respectively. Patient denies having any shortness of breath at the moment. She denies having any right lower leg pain at the moment. She denies any fever, chills, or diaphoresis. Good energy level. Transfer the patient from PCU to [facility]. Saline lock the patient. DC BMP every 6. Continue wound care as per wound care team. Pending infectious disease recommendations on antibiotic choice and duration. Continue sodium bicarb and resume diuretics as per nephrology recommendations. Physical therapy evaluation and treatment. 06/21: Afebrile overnight. No additional growth from cultures. WBC 10.0. Status post infectious disease specialist evaluations and they recommend at least 5 days of the mist treatment with tobramycin, 10 days of IV Zosyn, and DC vancomycin. Dr. Reynolds would like to keep the patient's in-house over the weekend for the mist treatment prior to discharge back to the SNF. Patient denies having any shortness of breath or pain of her right lower extremity. 06/22: Afebrile overnight. No additional growth from cultures. WBC 9.5. Patient denies any leg pains. She is coming of sore throat. She has watery discharge from her ostomy bag. Patient denies any shortness of breath. She denies any subjective fever, chills, or diaphoresis overnight. Cepacol as needed of sore throat. Hold Senna and Colace and Lactulose for now. Continue 5 days of the mist treatment with tobramycin, and 10 days total of IV Zosyn. Tentative date of the discharged back to the SNF will be Friday, June 24, 2022. 4/: Afebrile overnight. No additional growth from cultures. WBC 9.2. Patient denies any leg pains. She denies sore throat this morning. She had insomnia last night. Patient denies any shortness of breath. She denies any subjective fever, chills, or diaphoresis overnight. Continue 5 days of the mist treatment with tobramycin, and 10 days total of IV Zosyn. Tentative date of the discharged back to the SNF will be Friday, June 24, 2022. 06/24 Patient states she is tired this morning because she had poor sleep last night. Little bit of a headache. No other new complaints. Assessment and Plans: *Metabolic acidosis with respiratory alkalosis: *Pulmonary nodules and infiltrates stable relative to previous studies: *Chronic right lower leg cellulitis: -s/p ID Eval> recs at least 5 days of the mist treatment with tobramycin, 10 days of IV Zosyn, and DC vancomycin. -Dr. 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 Bolivar *Hyponatremia/Hypomagnesemia: *Hyperkalemia: *Anemia, chronic: *Essential hypertension: *Hypothyroidism: Discharge diagnosis: ella hyperkalemia hyponatremia Leg cellulitis acidosis Time Spent with Patient Time attestation: Total time spent providing and/or coordinating discharge services: Time spent: Greater than 30 minutes EXAM Constitutional Vitals: Temp Pulse Resp BP Pulse Ox O2 Del Method 97.1 F 74 18 121/47 96 Room Air 06/23/22 11:58 06/23/22 11:58 06/23/22 11:58 06/23/22 11:58 06/23/22 11:58 06/23/22 11:58 Discharge Data Data Completed and Pending Labs on day of discharge: Labs from last 24 hours 06/23/22 06/23/22 05:09 05:09 WBC 9.2 RBC 3.04 L Hgb 8.3 L Hct 26.0 L MCV 85.5 MCH 27.3 MCHC 31.9 RDW 15.2 H Plt Count 296 MPV 9.1 Immature Gran % (Auto) 5.1 H Neut % (Auto) 72.6 Lymph % (Auto) 10.2 L [place] % (Auto) 7.0 Eos % (Auto) 4.6 Baso % (Auto) 0.5 Lymph # (Auto) 0.94 L [place] # (Auto) 0.65 Eos # (Auto) 0.42 Baso # (Auto) 0.05 Immature Gran # 0.47 H Absolute Neutrophils 6.70 Sodium 135 Potassium 4.2 Chloride 101 Carbon Dioxide 21 L Anion Gap 13.0 BUN 42 H Creatinine 2.7 H GFR Calculation 16 Glucose 88 Calcium 8.4 L Phosphorus 5.0 H Magnesium 1.6 Total Bilirubin < 0.2 AST 11 ALT 9 Alkaline Phosphatase 128 H Total Protein 4.9 L Albumin 2.3 L Globulin 2.6 Albumin/Globulin Ratio 0.9 L Discharge Plan Patient/Caregiver Discharge Instructions Activity: increase activity as tolerated Diet: Renal Activity Restrictions/Additional Instructions: zosyn for 4 more days. Prescriptions: New Zosyn in dextrose (iso-osm) 2.25 gram/50 mL piggyback 2.25 g IV Q8H Qty: 600 0RF Continued oxycodone 5 mg tablet 5 mg PO Q6H PRN (Reason: Pain) albuterol sulfate 90 mcg/actuation HFA aerosol inhaler 1 inh inhalation ONCE Eliquis 5 mg tablet 2.5 mg PO BID levothyroxine 100 mcg capsule 200 mcg PO QDAY cholecalciferol (vitamin D3) 50 mcg (2,000 unit) capsule 50 mcg PO QDAY loperamide 2 mg tablet 2 mg PO Q6H PRN (Reason: Diarrhea) acetaminophen [Tylenol] 325 mg tablet 325 mg PO ONCE PRN (Reason: pain/fever) cholestyramine (with sugar) 4 gram powder 2 ea PO BID cyanocobalamin (vitamin B-12) 1,000 mcg capsule 1,000 mcg PO QMONTH furosemide 40 mg Tablet 40 mg PO QAM PRN (Reason: lower extremity edema) bisacodyl [Dulcolax (bisacodyl)] 10 mg Suppository 10 mg WA ONCE ferrous sulfate 325 mg (65 mg iron) Tablet See Rx Instructions .ROUTE .COMPLEX Rx Instructions: 325 mg orally EVERY OTHER DAY fiber Tablet 2 tab PO DAILY bisacodyl 5 mg Tablet 10 mg PO DAILY [id number] 100-62.5-25 mcg Blister With Device 1 inh INHALATION QDAY nicotine 14 mg/24 hr Patch 24 Hour 1 patch TRANSDERMAL Q24H lidocaine 4 % Adhesive Patch,Medicated 1 patch TOPICAL QDAY PRN (Reason: Pain) sodium bicarbonate 650 mg Tablet 650 mg PO QID Discontinued magnesium hydroxide [Milk of Magnesia] 400 mg/5 mL suspension 5 ml PO ONCE Fleet Enema 19-7 gram/118 mL Enema 118 ml WA ONCE PRN (Reason: constipation ) Other Ambulatory Orders: OT Discharge Order (Routine) Facility: [facility] - Location: [facility] Ordered By: Ozzy Degroot Physical Therapy at Discharge - General (Routine) Facility: [facility] - Location: [facility] Ordered By: Ozzy Degroot Follow Up Plan Follow up with: Tolu Bowden MD [Physician] - 07/01/22 9:40 am Robert Bolivar MD [Physician] - Adrien Carbajal DO [Primary Care Provider] - Patient Disposition: Xfer SNF Plan of Treatment: Plan: OK for D/C from wound care point of view. F/u at wound care center in ONE week after discharge. Dressings RIGHT and left leg monitored if clean and dry. Prognosis: Undetermined Rehab Potential: Fair I certify that the patient requires SNF services: Yes Overall status at discharge: patient is progressing back to baseline Discharge Orders: Discharge Order (Routine); Ordered 06/24/22 Ordered By: Ozzy Degroot QUALITY VTE Deep Vein Thrombosis/Pulmonary Embolism Present on Admission: No
[2022-06-24] MEDS: 0.9 % SODIUM CHLORIDE 10 ML SYRINGE IV SCH (05:35)
[2022-06-24] MEDS: PIPERACILLIN SODIUM/TAZOBACTAM 2.25 GM in DEXTROSE 5% IN WATER 50 ML IV SCH ×2 (05:42→18:04)
[2022-06-24] MEDS: LEVOTHYROXINE 100 MCG TABLET PO SCH (06:15)
[2022-06-24] MEDS: CHOLESTYRAMINE/ASPARTAME 4 GM POWD.PACK PO SCH (07:45)
--- NOTE | 2022-06-24 08:25 | Internal Med Progress Note ---
SUBJECTIVE Subjective Patient information: Note initiated : 06/24/22 at 8:24 am Service Date, if different from initiated Date: [] Patient: Harriett Lindsey a 82 y/o F admitted on 06/18/22 for shortness of breath. Chief Complaint: [] Interval history: Ms. Lindsey is a 82 year old F [facility] resident, s/p colostomy, DVT on Eliquis, hypothyroidism, chronic kidney disease, presenting with 1 week history of progressively worsening shortness of breath. She is coming of progressively worsening shortness of breath. She is coming of respiratory wheezings. She denies chest pain. She denies cough. She denies fever but she is complaining of some chills. She is also complaining of bilateral leg swelling and right lower leg swelling and pain around her chronic right lower leg wound. She is supposed to have wound care clinic follow-up today but she has been sent to our ED for further evaluation of her shortness of breath instead. Vital signs at ED presentations within normal limits. Labs significant for leukocytosis with WBC 29.2. Lactic acid 1.4. COVID screening negative. Procalcitonin elevated at 0.37. Serum sodium and potassium level 126 and 5.7, respectively. Serum bicarb is 17 suggesting mild metabolic acidosis. Serum creatinine level elevated at 3.8 with baseline around 1.6. CT of the chest abdomen pelvis showing multiple pulmonary nodules and right upper lobe infiltrate but they were stable since previous studies. 06/19: Serum sodium/potassium/magnesium 126/5.1/0.9, respectively. MRSA screening positive. All cultures no growth to date. She is on room air. Patient denies having any more shortness of breath this morning. Denies any cough or wheezing. He denies any fever chills or diaphoresis. She denies any right lower leg pain. Continue vancomycin and Zosyn for right lower leg cellulitis. Co-managing with engine specialist Dr. Bowden and infectious disease. Continue IV normal saline and BMP every 6 hours for hyponatremia. Magnesium rider. Sodium bicarbonate 1300 mg p.o. 3 times daily. Physical therapy evaluation and treatment. Keep the patient in inpatient PCU. 06/20: Afebrile overnight. WBC 10.8 this morning. Wound culture growing Pseudomonas aeruginosa; blood culture no growth today. Serum sodium level, potassium level, admitting serum level 130, 4.3, and 1.9, respectively. Patient denies having any shortness of breath at the moment. She denies having any right lower leg pain at the moment. She denies any fever, chills, or diaphoresis. Good energy level. Transfer the patient from [facility] to [facility]. Saline lock the patient. DC BMP every 6. Continue wound care as per wound care team. Pending infectious disease recommendations on antibiotic choice and duration. Continue sodium bicarb and resume diuretics as per nephrology recommendations. Physical therapy evaluation and treatment. 06/21: Afebrile overnight. No additional growth from cultures. WBC 10.0. Status post infectious disease specialist evaluations and they recommend at least 5 days of the mist treatment with tobramycin, 10 days of IV Zosyn, and DC vancomycin. Dr. Reynolds would like to keep the patient's in-house over the weekend for the mist treatment prior to discharge back to the SNF. Patient denies having any shortness of breath or pain of her right lower extremity. 06/22: Afebrile overnight. No additional growth from cultures. WBC 9.5. Patient denies any leg pains. She is coming of sore throat. She has watery discharge from her ostomy bag. Patient denies any shortness of breath. She denies any subjective fever, chills, or diaphoresis overnight. Cepacol as needed of sore throat. Hold Senna and Colace and Lactulose for now. Continue 5 days of the mist treatment with tobramycin, and 10 days total of IV Zosyn. Tentative date of the discharged back to the SNF will be Friday, June 24, 2022. 4/2: Afebrile overnight. No additional growth from cultures. WBC 9.2. Patient denies any leg pains. She denies sore throat this morning. She had insomnia last night. Patient denies any shortness of breath. She denies any subjective fever, chills, or diaphoresis overnight. Continue 5 days of the mist treatment with tobramycin, and 10 days total of IV Zosyn. Tentative date of the discharged back to the SNF will be Friday, June 24, 2022. 4/3 Patient states she is tired this morning because she had poor sleep last night. Little bit of a headache. No other new complaints. Review of Systems: denies fever/chills/nausea/vomiting/chest or abdominal pain/cough/d yspnea/diarrhea. Otherwise see above. PHYSICAL EXAM General: Alert, Awake, No acute Distress, obese Eyes/N/T: EOMI, no scleral icterus, Head/Neck: neck supple, full ROM, CV: RRR, No murmurs, Pulm: Clear b/l, no wheezing/rhonchi/rales, no respiratory distress Abd: soft, nontender, +BS x4, ilestomy Ext: no clubbing/cyanosis. RLE erythema/edema - dressings inplace Neuro: Alert, no focal deficits, moves all extremities, , sensations intact b/l upper/lower Psychiatric: Skin: warm/dry, normal color Constitutional Vitals: Vital Signs Temp Pulse Resp BP Pulse Ox O2 Del Method 98.4 F 72 16 123/50 98 Room Air 06/24/22 07:05 06/24/22 07:05 06/24/22 07:05 06/24/22 07:05 06/24/22 07:05 06/24/22 07:05 Period Temp Pulse Resp BP Sys/Wilhelm Pulse Ox O2 Del Method O2 Flow Rate Last 24 Hr 97.1 F-98.4 F 72-78 16-22 121-131/42-50 96-100 Room Air-Room Air Intake and Output 06/23/22 06/24/22 06/24/22 19:59 03:59 11:59 Intake Total 1010 290 50 Output Total 1000 650 200 Balance 10 -360 -150 Weight 94.432 kg Intake & Output: Intake & Output 06/23/22 06/24/22 06/24/22 19:59 03:59 11:59 Intake Total 1010 290 50 Output Total 1000 650 200 Balance 10 -360 -150 Weight 94.432 kg Intake: IV 50 50 50 Zosyn 2.25 gm In Dextrose 5% in 50 50 50 Water 50 ml @ 100 mls/hr IV Q8H [facility] Rx#:[id number] Oral 960 240 Output: Void Amount 200 100 200 Stool 800 550 Other: Meal Dinner Percent of Meal Consumed 75% Feeding Ability Assist with Tray Set Up Urine Appearance Clear Clear Clear Urine Color Yellow Bright Yellow Yellow Urine Odor Strong Strong Stool Size Moderate Stool Color Brown Stool Consistency Loose OBJ DATA Labs 06/23/22 05:09 06/23/22 05:09 Labs: Abnormal Lab Results 06/23/22 06/23/22 06/22/22 05:09 05:09 05:19 RBC 3.04 L Hgb 8.3 L Hct 26.0 L RDW 15.2 H Immature Gran % (Auto) 5.1 H Lymph % (Auto) 10.2 L Lymph # (Auto) 0.94 L Immature Gran # 0.47 H Carbon Dioxide 21 L 19 L BUN 42 H 40 H Creatinine 2.7 H 2.8 H Calcium 8.4 L 8.2 L Phosphorus 5.0 H 4.8 H Alkaline Phosphatase 128 H Total Protein 4.9 L 4.8 L Albumin 2.3 L 2.1 L Albumin/Globulin Ratio 0.9 L 0.8 L 06/22/22 05:19 RBC 3.14 L Hgb 8.6 L Hct 26.9 L RDW 15.3 H Immature Gran % (Auto) 5.1 H Lymph % (Auto) 9.9 L Lymph # (Auto) 0.94 L Immature Gran # 0.48 H Carbon Dioxide BUN Creatinine Calcium Phosphorus Alkaline Phosphatase Total Protein Albumin Albumin/Globulin Ratio Meds: Medications Acetaminophen (Acetaminophen 325 Mg Tablet) 650 mg PO Q6HP PRN; Protocol PRN Reason: Per Pain Protocol/Fever > 101 Last Admin: 06/23/22 01:55 Dose: 650 mg Albuterol Sulfate (Albuterol Sulfate 60 Puff Inhaler) 1 puff INH Q4HP PRN PRN Reason: Shortness Of Breath Albuterol/Ipratropium (Ipratropium/Albuterol 3 Ml Ampul.Neb) 3 ml NEB Q4HRT PRN PRN Reason: Wheezing Apixaban (Apixaban 5 Mg Tablet) 2.5 mg PO BID [facility] Last Admin: 06/23/22 20:43 Dose: 2.5 mg Calcium Polycarbophil (Calcium Polycarbophil 1 Tablet) 1 tab PO DAILY [facility] Last Admin: 06/23/22 08:12 Dose: 1 tab Cholestyramine Resin (Cholestyramine/Aspartame 4 Gm Powd.Pack) 4 gm PO DAILY@0700 [facility] Last Admin: 06/24/22 07:45 Dose: 4 gm Ferrous Sulfate (Ferrous Sulfate 325 Mg Tablet) 325 mg PO Q48H [facility] Last Admin: 06/23/22 10:49 Dose: 325 mg Furosemide (Furosemide 40 Mg Tablet) 40 mg PO QAM PRN PRN Reason: lower extremity edema Piperacillin Sod/Tazobactam (Sod 2.25 gm/ Dextrose) 50 mls @ 100 mls/hr IV Q8H [facility]; Protocol Last Infusion: 06/24/22 06:13 Dose: Infused Levothyroxine Sodium (Levothyroxine 100 Mcg Tablet) 200 mcg PO DAILY@0600 [facility] Last Admin: 06/24/22 06:15 Dose: 200 mcg Loperamide HCl (Loperamide 2 Mg Capsule) 2 mg PO Q6HP PRN PRN Reason: Diarrhea Last Admin: 06/19/22 20:43 Dose: 2 mg Mupirocin (Mupirocin Oint 2% 22gm) 1 dose NARES BID [facility] Last Admin: 06/23/22 20:42 Dose: 1 dose Nicotine (Nicotine 14 Mg Patch) 14 mg TD Q24H [facility] Last Admin: 06/23/22 08:12 Dose: 14 mg Ondansetron HCl (Ondansetron 4 Mg/2 Ml Vial) 4 mg IV Q4HP PRN; Protocol PRN Reason: Nausea And Vomiting Oxycodone HCl (Oxycodone Hcl 5 Mg Tablet) 5 mg PO Q6HP PRN; Protocol PRN Reason: Pain Last Admin: 06/23/22 13:44 Dose: 5 mg Fluticasone- Umeclidin-Vilanter 100-62.5-25 Mcg 1 dose INH QDAY [facility] Last Admin: 06/23/22 08:18 Dose: 1 dose Sodium Bicarbonate (Sodium Bicarbonate 650 Mg Tablet) 650 mg PO BID [facility] Last Admin: 06/23/22 20:43 Dose: 650 mg Sodium Biphosphate/Sodium Phosphate (Fleets Adult Enema) 1 dose GA DAILYP PRN PRN Reason: constipation Sodium Chloride (0.9 % Sodium Chloride 10 Ml Syringe) 10 ml IV Q8 [facility] Last Admin: 06/24/22 05:35 Dose: 10 ml Throat Lozenges (Benzocaine/Menthol 1 Lozenge) 1 lozenge PO PRN PRN PRN Reason: Sore Throat Last Admin: 06/23/22 20:43 Dose: 1 lozenge Tobramycin Sulfate (Tobramycin Sulfate 80 Mg/2 Ml Vial) 300 mg TOPICAL DAILY [facility] Last Admin: 06/23/22 13:12 Dose: 300 mg Vitamin D (Vitamin D3 25 Mcg Tablet) 50 mcg PO DAILY [facility] Last Admin: 06/23/22 08:12 Dose: 50 mcg Zolpidem Tartrate (Zolpidem 5 Mg Tablet) 5 mg PO HSP PRN PRN Reason: Insomnia Last Admin: 06/19/22 20:41 Dose: 5 mg ABG Interpretation ABG results: 06/18/22 13:50 ABG Methemoglobin 0.3 L VBG pH 7.23 L VBG pCO2 47.1 VBG pO2 33.5 VBG HCO3 19.2 L VBG Total CO2 20.6 L VBG O2 Saturation 57.0 VBG Base Excess -8 L A/P Narrative A/P Narrative: Assessment and Plans: *Metabolic acidosis with respiratory alkalosis: -Nephrology following -sodium bicarb TID -Daily chemistry to trend *Pulmonary edema with fluid overload-->no IV fluid for now, comanagement with nephrology *Pulmonary nodules and infiltrates stable relative to previous studies: *Chronic right lower leg cellulitis: -s/p ID Eval> recs at least 5 days of the mist treatment with tobramycin, 10 days of IV Zosyn, and DC vancomycin. -Dr. 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 Bolivar *Hyponatremia/Hypomagnesemia: -Consult nephrology, recs. appreciated -CMP daily to trend serum sodium level and mag *Hyperkalemia: RESOLVED -Consult nephrology, recs. appreciated *Anemia, chronic: *Essential hypertension: Currently normotensive, Continue home antihypertensives *Hypothyroidism: Continue oral thyroid replacement therapy *h/o DVT: Continue Eliquis *ppx: Eliquis Code status: Full Plan of Treatment: If renal follow up desired, send to Dr Bolivar in 3-4 weeks. Time Spent With Patient Time: Total time spent is greater than 50% in coordination of care (as documented) at patient's floor/unit and/or counseling patient: Subsequent: Total time with patient: 35 - 49 minutes QUALITY VTE Deep Vein Thrombosis/Pulmonary Embolism Present on Admission: No
[2022-06-24] MEDS: SODIUM BICARBONATE 650 MG TABLET PO SCH (09:53)
[2022-06-24] MEDS: APIXABAN 5 MG TABLET PO SCH (09:53)
[2022-06-24] MEDS: CALCIUM POLYCARBOPHIL 1 TABLET PO SCH (09:53)
[2022-06-24] MEDS: VITAMIN D3 25 MCG TABLET PO SCH (09:54)
[2022-06-24] MEDS: FLUTICASONE UMECLIDIN VILANTER INH SCH (10:00)
--- NOTE | 2022-06-24 10:04 | General Surgery Progress Note ---
SUBJECTIVE Subjective Patient information: Note initiated : 06/24/22 at 10:01 am Service Date, if different from initiated Date: [] Patient: Harriett Lindsey 82 y/o F admitted on 06/18/22 for shortness of breath. Chief Complaint: [] Additional PMFSH (Level 3 Only): Patient seen with Guadalupe Leslie RNcinder snapper Manager. Progress reviewed. Constitutional Vitals: Vital Signs Temp Pulse Resp BP Pulse Ox O2 Del Method 98.4 F 72 16 123/50 98 Room Air 06/24/22 07:05 06/24/22 07:05 06/24/22 07:05 06/24/22 07:05 06/24/22 07:05 06/24/22 07:05 Period Temp Pulse Resp BP Sys/Wilhelm Pulse Ox O2 Del Method O2 Flow Rate Last 24 Hr 97.1 F-98.4 F 72-78 16-22 121-131/42-50 96-100 Room Air-Room Air Intake and Output 06/23/22 06/24/22 06/24/22 19:59 03:59 11:59 Intake Total 1010 290 50 Output Total 1000 650 200 Balance 10 -360 -150 Weight 208 lb 3 oz Intake & Output: Intake & Output 06/23/22 06/24/22 06/24/22 19:59 03:59 11:59 Intake Total 1010 290 50 Output Total 1000 650 200 Balance 10 -360 -150 Weight 208 lb 3 oz Intake: IV 50 50 50 Zosyn 2.25 gm In Dextrose 5% in 50 50 50 Water 50 ml @ 100 mls/hr IV Q8H [facility] Rx#:[id number] Oral 960 240 Output: Void Amount 200 100 200 Stool 800 550 Other: Meal Dinner Breakfast Percent of Meal Consumed 75% 100% Feeding Ability Assist with Tray Set Up Independent Urine Appearance Clear Clear Clear Urine Color Yellow Bright Yellow Yellow Urine Odor Strong Strong Stool Size Moderate Stool Color Brown Stool Consistency Loose Exam: AVSS. GEN. Unremarkable. At her baseline. RIGHT lower lateral leg wound site is clean. 100% granulating base. Periwound skin ans sub q texture at baseline. labs: Leucocytosis resolved. Creatinine trending down. Completed MIST with Tobramycin as scheduled. A/P Narrative A/P Narrative: Assessment: Satisfactory progress from wound care point of view. Awaits Rehab placement at [facility]. Plan of Treatment: Plan: OK for D/C from wound care point of view. D/W Dr. Degroot. F/u at wound care center in ONE week after discharge. Dressings RIGHT and left leg monitored if clean and dry. Time Spent With Patient Time: Total time spent is greater than 50% in coordination of care (as documented) at patient's floor/unit and/or counseling patient: Initial: Total time with patient: Less than 40 minutes
--- NOTE | 2022-06-24 10:14 | General Surgery Progress Note ---
SUBJECTIVE Subjective Patient information: Note initiated : 06/24/22 at 10:09 am Service Date, if different from initiated Date: [] Patient: Harriett Lindsey 82 y/o F admitted on 06/18/22 for shortness of breath. Chief Complaint: [] Additional PMFSH (Level 3 Only): 06/24/2022 Patient seen on rounds with Guadalupe Leslie RN, Wound healthcare administration intern. Wound site RIGHT leg examined. Constitutional Vitals: Vital Signs Temp Pulse Resp BP Pulse Ox O2 Del Method 98.4 F 72 16 123/50 98 Room Air 06/24/22 07:05 06/24/22 07:05 06/24/22 07:05 06/24/22 07:05 06/24/22 07:05 06/24/22 07:05 Period Temp Pulse Resp BP Sys/Wilhelm Pulse Ox O2 Del Method O2 Flow Rate Last 24 Hr 97.1 F-98.4 F 72-78 16-22 121-131/42-50 96-100 Room Air-Room Air Intake and Output 06/23/22 06/24/22 06/24/22 19:59 03:59 11:59 Intake Total 1010 290 50 Output Total 1000 650 200 Balance 10 -360 -150 Weight 208 lb 3 oz Intake & Output: Intake & Output 06/23/22 06/24/22 06/24/22 19:59 03:59 11:59 Intake Total 1010 290 50 Output Total 1000 650 200 Balance 10 -360 -150 Weight 208 lb 3 oz Intake: IV 50 50 50 Zosyn 2.25 gm In Dextrose 5% in 50 50 50 Water 50 ml @ 100 mls/hr IV Q8H [facility] Rx#:[id number] Oral 960 240 Output: Void Amount 200 100 200 Stool 800 550 Other: Meal Dinner Breakfast Percent of Meal Consumed 75% 100% Feeding Ability Assist with Tray Set Up Independent Urine Appearance Clear Clear Clear Urine Color Yellow Bright Yellow Yellow Urine Odor Strong Strong Stool Size Moderate Stool Color Brown Stool Consistency Loose Exam: AVSS. GEN unremarkable. At her baseline. RIGHT lower lateral wound site is granulating well. Excellent result with MIST and Tobramycin Labs: Leucocytosis resolved. Creatinine trending back to baseline. A/P Narrative A/P Narrative: Assessment: Satisfactory progress fro wound care point of view. Sepsis improved. Tolerating physical therapy. ELLA on CKI improving. Plan of Treatment: Plan: OK for D/C from wound care point of view. F/u at wound care center in ONE week after discharge. Dressings RIGHT and left leg monitored if clean and dry. Time Spent With Patient Time: Total time spent is greater than 50% in coordination of care (as documented) at patient's floor/unit and/or counseling patient: Initial: Total time with patient: Less than 40 minutes
[2022-06-24] MEDS: TOBRAMYCIN SULFATE 80 MG/2 ML VIAL TOPICAL SCH (13:14)
[2022-06-24] MEDS: MUPIROCIN OINT 2% 22GM NARES SCH (13:15)
[2022-06-24] MEDS: NICOTINE 14 MG PATCH TD SCH (13:15)
== END 2022-06-24 13:25 | DRG 683 ==
LOC: ED 06:59 → ICU 14:52 → MEDSUR 06-20 11:59
PROVIDERS: ADMIT Internal Medicine; ATTEND Internal Medicine